=== PATIENT | male | born 1975 | race Caucasian/White ===

== ENCOUNTER 2017-09-11 18:04 | Emergency (ER) | payer SELFPAY ==
[2017-09-11 18:15] VITALS: BP 110/76
== END 2017-09-11 22:30 | disposition left against medical advice (07) ==
LOC: ED 18:04
DX: R06.02 Shortness of breath (principal); Z53.21 Procedure and treatment not carried out due to patient leaving prior to being seen by health care provider

== ENCOUNTER 2017-10-06 01:19 | Inpatient (IN) | payer OTHER ==
[2017-10-06] MEDS ORDERED: ASPIRIN PO ONE (02:46)
[2017-10-06 03:04] LABS: Basophils # (Auto) 0.1 K/mm3 (0.0-0.1); Basophils % (Auto) 0.8 % (0.0-1.8); Eosinophils # (Auto) 0.5 K/mm3 (0.0-0.4); Hematocrit 42.8 % (35.5-45.6); Hemoglobin 14.3 gm/dl (11.8-15.2); Lymphocytes # (Auto) 2.6 K/mm3 (1.2-5.4); Lymphocytes % (Auto) 32.4 % (13.4-35.0); Mean Corpuscular HGB Conc 33 % (32-34); Mean Corpuscular Hemoglobin 30 pg (28-32); Mean Corpuscular Volume 90 fl (84-94); Monocytes # (Auto) 1.1 K/mm3 (0.0-0.8); Monocytes % (Auto) 14.3 % (0.0-7.3); Platelet Count 234 K/mm3 (140-440); Red Blood Count 4.78 M/mm3 (3.65-5.03); Red Cell Distribution Width 13.8 % (13.2-15.2)
[2017-10-06 03:24] LABS: BUN/Creatinine Ratio 14; Blood Urea Nitrogen 11 mg/dL (9-20); Calcium 9.8 mg/dL (8.4-10.2); Hemolysis Index 11
[2017-10-06] MEDS ORDERED: ASPIRIN ONE ×2 (06:07→10:19)
[2017-10-06] MEDS ORDERED: ALUM-MAG HYDROX-SIMETH 200-200-20MG/5ML PO ONE (07:18)
[2017-10-06] MEDS ORDERED: LIDOCAINE VISCOUS 2% PO ONE (07:18)
--- NOTE | 2017-10-06 07:22 | XRay Report ---
FINAL REPORT EXAM: XR CHEST 1V AP HISTORY: cp TECHNIQUE: A portable upright view the chest was submitted. FINDINGS: Heart size and mediastinum appear normal. The lungs are clear. The lungs are not congested. Pleural fluid is not seen. The bones and soft tissues are well maintained. IMPRESSION: No active chest disease.
--- NOTE | 2017-10-06 08:07 | Cat Scan Report ---
FINAL REPORT EXAM: CT ANGIO CHEST HISTORY: chest pain, sob TECHNIQUE: A CT angiogram of the thorax was obtained following the intravenous injection of 100 cc of Omnipaque 350. Rotational, sagittal, and coronal MIP reconstructions were reviewed. FINDINGS: There is no evidence of pulmonary embolus or aortic dissection. The thoracic aorta is normal caliber. The heart size is normal. Pericardial fluid is not seen. There is no evidence of adenopathy. The lungs are clear. Pleural fluid is not seen. In the upper abdomen the adrenal glands appear normal. The skeletal structures appear well maintained. At the thoracic inlet the thyroid gland appears normal IMPRESSION: No evidence of pulmonary embolus or aortic dissection. No acute process in the chest.
[2017-10-06] MEDS ORDERED: ATIVAN PO ONE (08:22)
--- NOTE | 2017-10-06 08:27 | Emergency Department Report ---
HPI - General Chief Complaint: Chest Pain Time Seen by Provider: 10/06/17 06:45 - HPI HPI: 27 year-old -[place] male presents to ED with chest pain, shortness of breath, has been going on for the past week but worse today. Patient also states he has having palpitations. He describes his pain as pressure, substernal area, without radiation. He describes his pain as its worse is 10 out of 10 intermittently and other times 3/10. Patient denies any nausea, vomiting, diaphoresis. Patient denies any past medical history and has not taking any medication for his symptoms. ED Past Medical Hx - Past Medical History Previous Medical History?: No - Surgical History Past Surgical History?: No - Social History Smoking Status: Never Smoker Substance Use Type: None ED Review of Systems ROS: Stated complaint: LEFT ARM, CHEST TIGHTEN Other details as noted in HPI Comment: All other systems reviewed and negative Respiratory: shortness of breath. denies: cough, orthopnea Cardiovascular: chest pain Physical Exam - Physical Exam Vital Signs: Vital Signs 10/06/17 10/06/17 10/06/17 01:22 02:32 05:57 Temperature 97.8 F 97.8 F Pulse Rate 72 76 Respiratory 16 16 Rate Blood Pressure 100/68 100/68 O2 Sat by Pulse 99 100 99 Oximetry 10/06/17 10/06/17 10/06/17 05:58 05:59 06:00 Temperature Pulse Rate 55 L 55 L Respiratory 14 11 L Rate Blood Pressure 109/74 109/74 O2 Sat by Pulse 99 100 Oximetry 10/06/17 10/06/17 10/06/17 06:01 06:03 06:05 Temperature Pulse Rate 57 L 62 67 Respiratory 16 17 10 L Rate Blood Pressure 109/74 109/74 109/74 O2 Sat by Pulse 100 100 100 Oximetry 10/06/17 06:57 Temperature Pulse Rate Respiratory 20 Rate Blood Pressure O2 Sat by Pulse 98 Oximetry Physical Exam: Vitals reviewed Gen. alert and oriented 3 in no distress Head atraumatic normocephalic Eyes PERR LA EOMI Chest tachycardia but regular rhythm normal S1-S2 lungs clear bilaterally Abdomen soft nondistended Back no point tenderness paravertebral tenderness Neuro no focal deficit. Psych normal mood. ED Course Vital Signs 10/06/17 10/06/17 10/06/17 01:22 02:32 05:57 Temperature 97.8 F 97.8 F Pulse Rate 72 76 Respiratory 16 16 Rate Blood Pressure 100/68 100/68 O2 Sat by Pulse 99 100 99 Oximetry 10/06/17 10/06/17 10/06/17 05:58 05:59 06:00 Temperature Pulse Rate 55 L 55 L Respiratory 14 11 L Rate Blood Pressure 109/74 109/74 O2 Sat by Pulse 99 100 Oximetry 10/06/17 10/06/17 10/06/17 06:01 06:03 06:05 Temperature Pulse Rate 57 L 62 67 Respiratory 16 17 10 L Rate Blood Pressure 109/74 109/74 109/74 O2 Sat by Pulse 100 100 100 Oximetry 10/06/17 06:57 Temperature Pulse Rate Respiratory 20 Rate Blood Pressure O2 Sat by Pulse 98 Oximetry ED Medical Decision Making - Lab Data Result diagrams: 10/06/17 02:52 10/06/17 02:52 Critical care attestation.: If time is entered above; I have spent that time in minutes in the direct care of this critically ill patient, excluding procedure time. ED Disposition Clinical Impression: Chest pain Qualifiers: Chest pain type: other chest pain Qualified Code(s): R07.89 - Other chest pain Disposition: DC-09 OP ADMIT IP TO THIS HOSP Is pt being admited?: Yes Does the pt Need Aspirin: Yes Condition: Stable Instructions: Chest Pain (ED) Referrals: PRIMARY CARE, [Primary Care Provider] - 3-5 Days
--- NOTE | 2017-10-06 09:24 | Progress Note ---
History Interval history: Chest pain Epigastric pains Hospitalist Physical - Constitutional Vitals: Temp Pulse Resp BP Pulse Ox 97.8 F 67 20 109/74 98 10/06/17 02:32 10/06/17 06:05 10/06/17 06:57 10/06/17 06:05 10/06/17 06:57 Results - Labs CBC & Chem 7: 10/06/17 02:52 10/06/17 02:52 Labs: Laboratory Last Values WBC 8.0 K/mm3 (4.5-11.0) 10/06/17 02:52 RBC 4.78 M/mm3 (3.65-5.03) 10/06/17 02:52 Hgb 14.3 gm/dl (11.8-15.2) 10/06/17 02:52 Hct 42.8 % (35.5-45.6) 10/06/17 02:52 MCV 90 fl (84-94) 10/06/17 02:52 MCH 30 pg (28-32) 10/06/17 02:52 MCHC 33 % (32-34) 10/06/17 02:52 RDW 13.8 % (13.2-15.2) 10/06/17 02:52 Plt Count 234 K/mm3 (140-440) 10/06/17 02:52 Lymph % (Auto) 32.4 % (13.4-35.0) 10/06/17 02:52 [place] % (Auto) 14.3 % (0.0-7.3) H 10/06/17 02:52 Eos % (Auto) 6.0 % (0.0-4.3) H 10/06/17 02:52 Baso % (Auto) 0.8 % (0.0-1.8) 10/06/17 02:52 Lymph # 2.6 K/mm3 (1.2-5.4) 10/06/17 02:52 [place] # 1.1 K/mm3 (0.0-0.8) H 10/06/17 02:52 Eos # 0.5 K/mm3 (0.0-0.4) H 10/06/17 02:52 Baso # 0.1 K/mm3 (0.0-0.1) 10/06/17 02:52 Seg Neutrophils % 46.5 % (40.0-70.0) 10/06/17 02:52 Seg Neutrophils # 3.7 K/mm3 (1.8-7.7) 10/06/17 02:52 Sodium 139 mmol/L (137-145) 10/06/17 02:52 Potassium 3.9 mmol/L (3.6-5.0) 10/06/17 02:52 Chloride 97.5 mmol/L (98-107) L 10/06/17 02:52 Carbon Dioxide 29 mmol/L (22-30) 10/06/17 02:52 Anion Gap 16 mmol/L 10/06/17 02:52 BUN 11 mg/dL (9-20) 10/06/17 02:52 Creatinine 0.8 mg/dL (0.8-1.5) 10/06/17 02:52 Estimated GFR > 60 ml/min 10/06/17 02:52 BUN/Creatinine Ratio 14 % 10/06/17 02:52 Glucose 131 mg/dL (75-100) H 10/06/17 02:52 Calcium 9.8 mg/dL (8.4-10.2) 10/06/17 02:52 Troponin T < 0.010 ng/mL (0.00-0.029) 10/06/17 06:16 NT-Pro-B Natriuret Pep 30.72 pg/mL (0-450) 10/06/17 06:16
--- NOTE | 2017-10-06 09:43 | History and Physical Report ---
History of Present Illness Date of examination: 10/06/17 Date of admission: 10/06/17 08:50 Chief complaint: Chest pain Epigastric pain History of present illness: Patient is 42 yo presents with chest pain for 1 week and epigastric pain for 1 month. Chest pain is left sided, sharp, 7 of out 10 in severity, no radiation, not worse on exertion. Epigastric pain is 8/10, dull, radiates to back, gets better after food. Epigastric pain associated with nausea, sometimes vomiting. He had seen his PCP about epigastric pain ,and was referred to and saw a GI Physician at [facility] and has another appointment in 1 month. he however states epigastric pain has become worse and now chest pain also worse therefore came to ED for evaluation. Initial cardiac enzymes are negative. Will admit to rule out acute coronary syndrome. Past History Past Medical History: No medical history Past Surgical History: No surgical history Social history: single, full code. denies: smoking, alcohol abuse Family history: hypertension Medications and Allergies Allergies Allergy/AdvReac Type Severity Reaction Status Date / Time No Known Allergies Allergy Verified 10/06/17 06:19 Home Medications Medication Instructions Recorded Confirmed Last Taken Type No Known Home Medications [No 10/06/17 10/06/17 Unknown History Reported Home Medications] Review of Systems All systems: negative (No fever, no cough, no shortness of breath. All other systems reviewed and are negative.) Exam - Physical Exam Narrative exam: General:Not in acute distress, lying in bed,, HEENT:Normocephalic, atraumatic Neck:supple,no JVD Lungs: Clear to auscultation bilaterally, no rales or wheeze Heart:S1 and S2 regular, no murmurs, rubs or gallop Abd: soft, tender epigastric region, no rebound tenderness, non distended, normal bowel sounds Ext:no edema, no clubbing or cyanosis Neuro:Awake,alert,oriented x 3, moves all extremities, Psych:normal mood - Constitutional Vitals: Temp Pulse Resp BP Pulse Ox 97.8 F 67 20 109/74 98 10/06/17 02:32 10/06/17 06:05 10/06/17 06:57 10/06/17 06:05 10/06/17 06:57 Results - Labs CBC & Chem 7: 10/06/17 10:30 10/06/17 10:30 Labs: Abnormal lab results 10/06/17 10/06/17 Range/Units 02:52 02:52 [place] % (Auto) 14.3 H (0.0-7.3) % Eos % (Auto) 6.0 H (0.0-4.3) % [place] # 1.1 H (0.0-0.8) K/mm3 Eos # 0.5 H (0.0-0.4) K/mm3 Chloride 97.5 L (98-107) mmol/L Glucose 131 H (75-100) mg/dL Assessment and Plan Chest pain. Admit to Telemetry to rule out acute coronary syndrome. Get serial Troponins Stress test tomorrow Epigastric pain., nausea patient had seen a GI Physician before, cannot remember name and he actually has appt for next month. He however states he is in severe pain and needs urgent evaluation. Consult GI. Protonix daily Sinus tachy due to pain/anxiety DVT prophylaxis:Heparin Full code status.
[2017-10-06] MEDS ORDERED: MORPHINE IV PRN (09:46)
[2017-10-06] MEDS ORDERED: ZOFRAN IV PRN (09:46)
[2017-10-06] MEDS ORDERED: TYLENOL PO PRN (09:46)
[2017-10-06] MEDS ORDERED: SODIUM CHLORIDE FLUSH SYRINGE 10 ML IV PRN ×2 (09:46→09:47)
[2017-10-06] MEDS ORDERED: NITROSTAT SL PRN (09:47)
[2017-10-06] MEDS: SODIUM CHLORIDE FLUSH SYRINGE 10 ML IV SCH ×2 (10:42→21:21)
[2017-10-06 10:45] LABS: Hematocrit 41.4 % (35.5-45.6); Hemoglobin 13.5 gm/dl (11.8-15.2); Mean Corpuscular HGB Conc 33 % (32-34); Mean Corpuscular Hemoglobin 29 pg (28-32); Mean Corpuscular Volume 89 fl (84-94); Platelet Count 239 K/mm3 (140-440); Red Blood Count 4.65 M/mm3 (3.65-5.03); Red Cell Distribution Width 13.8 % (13.2-15.2)
[2017-10-06 11:30] LABS: Band Neutrophils # (Manual) 0.1 K/mm3; Basophils % (Manual) 0 % (0.0-1.8); Total Cells Counted 100
[2017-10-06 11:31] LABS: Platelet Estimate Consistent w Auto
[2017-10-06 11:36] LABS: BUN/Creatinine Ratio 13; Blood Urea Nitrogen 9 mg/dL (9-20); Calcium 9.4 mg/dL (8.4-10.2); Hemolysis Index 11
[2017-10-06] MEDS: PROTONIX IV SCH ×2 (14:35→21:21)
--- NOTE | 2017-10-07 10:10 | Event Note ---
Date: 10/07/17 GI has been consulted for epigastric pain. Patient is off of the floor for a stress test. Full consult to follow when pt is available.
[2017-10-07] MEDS: ECOTRIN PO SCH (11:12)
[2017-10-07] MEDS: SODIUM CHLORIDE FLUSH SYRINGE 10 ML IV SCH ×2 (11:12→22:53)
[2017-10-07] MEDS: PROTONIX IV SCH ×2 (11:12→22:51)
--- NOTE | 2017-10-07 11:44 | Gastroenterology Consultation ---
<ROSA ALVAREZ - Last Filed: 10/07/17 11:44> History of Present Illness - Reason for Consult Consult date: 10/07/17 epigastric pain Requesting physician: MARCELL SAMUEL - History of Present Illness Patient is a 47 y/o male with no significant medical history who presented to ED with c/o CP and palpitations. Cardiac enzymes negative. Stress test results pending. GI has been consulted for epigastric pain. This morning pt was resting in bed w/o acute distress. He reports multiple symptoms x approximately 1 month to include intermittent CP, heartburn, regurgitation at night, burping, occasional nausea mainly in the mornings, and intermittent epigastric burning x 1 month. Symptoms exacerbated by eating spicy foods. Tried OTC Tums, rolaids, and Zantac w/o improvement. Tolerating diet. Has had some recent wt loss from changing his diet due to symptoms. Denies fever, SOB, vomiting, dysphagia, odynophagia, signs of bleeding, or LGI symptoms such as diarrhea or constipation. No routine NSAID use but reports taking Aleve last week for CP. No hx of PUD or previous EGD. Past History Past Medical History: No medical history Past Surgical History: No surgical history Social history: single, full code. denies: smoking, alcohol abuse Family history: hypertension Medications and Allergies Allergies Allergy/AdvReac Type Severity Reaction Status Date / Time No Known Allergies Allergy Verified 10/06/17 06:19 Home Medications Medication Instructions Recorded Confirmed Last Taken Type No Known Home Medications [No 10/06/17 10/06/17 Unknown History Reported Home Medications] Active Meds: Active Medications Acetaminophen (Tylenol) 650 mg PO Q4H PRN PRN Reason: Pain MILD(1-3)/Fever >100.5/BRIHGT Aspirin (Ecotrin) 325 mg PO QDAY [facility] Last Admin: 10/07/17 11:12 Dose: 325 mg Morphine Sulfate (Morphine) 2 mg IV Q4H PRN PRN Reason: Pain, Moderate (4-6) Nitroglycerin (Nitrostat) 0.4 mg SL Q5M PRN PRN Reason: Chest Pain Ondansetron HCl (Zofran) 4 mg IV Q8H PRN PRN Reason: Nausea And Vomiting Pantoprazole Sodium (Protonix) 40 mg IV BID [facility] Last Admin: 10/07/17 11:12 Dose: 40 mg Sodium Chloride (Sodium Chloride Flush Syringe 10 Ml) 10 ml IV BID [facility] Last Admin: 10/07/17 11:12 Dose: 10 ml Sodium Chloride (Sodium Chloride Flush Syringe 10 Ml) 10 ml IV PRN PRN PRN Reason: LINE FLUSH Review of Systems - Review of Systems All systems: negative Cardiovascular: chest pain Gastrointestinal: abdominal pain, nausea, heartburn, belching, other ( regurgitation) Exam - Constitutional Vital Signs: Temp Pulse Resp BP Pulse Ox 97.7 F 73 20 101/67 100 10/07/17 07:40 10/07/17 07:40 10/07/17 07:40 10/07/17 07:40 10/07/17 07:40 General appearance: no acute distress - EENT Eyes: PERRL, EOM intact ENT: hearing intact - Respiratory Respiratory: bilateral: CTA - Cardiovascular Rhythm: regular Heart Sounds: Present: S1 & S2 - Gastrointestinal General gastrointestinal: Present: soft, non-tender, non-distended, normal bowel sounds - Integumentary Integumentary: Present: warm, dry - Neurologic Neurological: alert and oriented x3 - Labs CBC & Chem 7: 10/06/17 10:30 10/06/17 10:30 Assessment and Plan 1.CP 2.epigastric pain 3.regurgitation at HS 4.heartburn 6.burping 7.nausea w/o vomiting (mainly in the mornings) -cardiac enzymes negative -stress test results pending -etiology unclear- possibly related to GERD -recommend an EGD once cleared by cardiology -NPO after MN -continue PPI and supportive care -further recommendations to follow <JUDI ISABEL - Last Filed: 10/07/17 17:03> Medications and Allergies Active Meds: Active Medications Acetaminophen (Tylenol) 650 mg PO Q4H PRN PRN Reason: Pain MILD(1-3)/Fever >100.5/BRIGHT Aspirin (Ecotrin) 325 mg PO QDAY [facility] Last Admin: 10/07/17 11:12 Dose: 325 mg Heparin Sodium (Porcine) (Heparin) 5,000 unit SUB-Q Q8HR [facility] Morphine Sulfate (Morphine) 2 mg IV Q4H PRN PRN Reason: Pain, Moderate (4-6) Nitroglycerin (Nitrostat) 0.4 mg SL Q5M PRN PRN Reason: Chest Pain Ondansetron HCl (Zofran) 4 mg IV Q8H PRN PRN Reason: Nausea And Vomiting Pantoprazole Sodium (Protonix) 40 mg IV BID [facility] Last Admin: 10/07/17 11:12 Dose: 40 mg Sodium Chloride (Sodium Chloride Flush Syringe 10 Ml) 10 ml IV BID [facility] Last Admin: 10/07/17 11:12 Dose: 10 ml Sodium Chloride (Sodium Chloride Flush Syringe 10 Ml) 10 ml IV PRN PRN PRN Reason: LINE FLUSH Exam - Constitutional Vital Signs: Temp Pulse Resp BP Pulse Ox 98.5 F 73 20 100/53 100 10/07/17 16:09 10/07/17 16:09 10/07/17 16:09 10/07/17 16:09 10/07/17 16:09 - Labs CBC & Chem 7: 10/06/17 10:30 10/06/17 10:30 Assessment and Plan Patient seen and examined. Agree with note by Rosa Alvarez. If cardiac work-up /stress test negative, will plan for EGD.
--- NOTE | 2017-10-07 12:43 | Progress Note ---
Assessment and Plan Assessment and plan: Chest pain. Aspirin daily. Stress test done today. report pending Epigastric pain., nausea patient had seen a GI Physician before, cannot remember name and he actually has appt for next month. he however states he is in severe pain and needs urgent evaluation. Consulted GI. he was evaluated and EGD planned for tomorrow,. Continue Protonix Sinus tachy due to pain/anxiety,resolved DVT prophylaxis with Heparin. Full code status. History Interval history: Less chest pain, Still has epigastric pain Hospitalist Physical - Physical exam Narrative exam: General:Not in acute distress, lying in bed,, HEENT:Normocephalic, atraumatic Neck:supple,no JVD Lungs: Clear to auscultation bilaterally, no rales or wheeze Heart:S1 and S2 regular, no murmurs, rubs or gallop Abd: soft, epigastric tenderness, no rebound tenderness,non distended, normal bowel sounds Ext:no edema, no clubbing or cyanosis Neuro:Awake,alert,oriented x 3, moves all extremities, Psych:normal mood - Constitutional Vitals: Temp Pulse Resp BP Pulse Ox 97.7 F 73 20 101/67 100 10/07/17 07:40 10/07/17 07:40 10/07/17 10:00 10/07/17 07:40 10/07/17 07:40 Results - Labs CBC & Chem 7: 10/06/17 10:30 10/06/17 10:30 Labs: Laboratory Last Values WBC 5.5 K/mm3 (4.5-11.0) 10/06/17 10:30 RBC 4.65 M/mm3 (3.65-5.03) 10/06/17 10:30 Hgb 13.5 gm/dl (11.8-15.2) 10/06/17 10:30 Hct 41.4 % (35.5-45.6) 10/06/17 10:30 MCV 89 fl (84-94) 10/06/17 10:30 MCH 29 pg (28-32) 10/06/17 10:30 MCHC 33 % (32-34) 10/06/17 10:30 RDW 13.8 % (13.2-15.2) 10/06/17 10:30 Plt Count 239 K/mm3 (140-440) 10/06/17 10:30 Lymph % (Auto) 32.4 % (13.4-35.0) 10/06/17 02:52 [place] % (Auto) Change Management Specialist 10/06/17 10:30 Eos % (Auto) 6.0 % (0.0-4.3) H 10/06/17 02:52 Baso % (Auto) 0.8 % (0.0-1.8) 10/06/17 02:52 Lymph # 2.6 K/mm3 (1.2-5.4) 10/06/17 02:52 [place] # 1.1 K/mm3 (0.0-0.8) H 10/06/17 02:52 Eos # 0.5 K/mm3 (0.0-0.4) H 10/06/17 02:52 Baso # 0.1 K/mm3 (0.0-0.1) 10/06/17 02:52 Add Manual Diff Complete 10/06/17 10:30 Total Counted 100 10/06/17 10:30 Seg Neutrophils % 46.5 % (40.0-70.0) 10/06/17 02:52 Seg Neuts % (Manual) 59.0 % (40.0-70.0) 10/06/17 10:30 Band Neutrophils % 1.0 % 10/06/17 10:30 Lymphocytes % (Manual) 15.0 % (13.4-35.0) 10/06/17 10:30 Reactive Lymphs % (Man) 1.0 % 10/06/17 10:30 Monocytes % (Manual) 21.0 % (0.0-7.3) H 10/06/17 10:30 Eosinophils % (Manual) 3.0 % (0.0-4.3) 10/06/17 10:30 Basophils % (Manual) 0 % (0.0-1.8) 10/06/17 10:30 Metamyelocytes % 0 % 10/06/17 10:30 Myelocytes % 0 % 10/06/17 10:30 Promyelocytes % 0 % 10/06/17 10:30 Blast Cells % 0 % 10/06/17 10:30 Nucleated RBC % Not Reportable 10/06/17 10:30 Seg Neutrophils # 3.7 K/mm3 (1.8-7.7) 10/06/17 02:52 Seg Neutrophils # Man 3.2 K/mm3 (1.8-7.7) 10/06/17 10:30 Band Neutrophils # 0.1 K/mm3 10/06/17 10:30 Lymphocytes # (Manual) 0.8 K/mm3 (1.2-5.4) L 10/06/17 10:30 Abs React Lymphs (Man) 0.1 K/mm3 10/06/17 10:30 Monocytes # (Manual) 1.2 K/mm3 (0.0-0.8) H 10/06/17 10:30 Eosinophils # (Manual) 0.2 K/mm3 (0.0-0.4) 10/06/17 10:30 Basophils # (Manual) 0.0 K/mm3 (0.0-0.1) 10/06/17 10:30 Metamyelocytes # 0.0 K/mm3 10/06/17 10:30 Myelocytes # 0.0 K/mm3 10/06/17 10:30 Promyelocytes # 0.0 K/mm3 10/06/17 10:30 Blast Cells # 0.0 K/mm3 10/06/17 10:30 WBC Morphology Not Reportable 10/06/17 10:30 Hypersegmented Neuts Not Reportable 10/06/17 10:30 Hyposegmented Neuts Not Reportable 10/06/17 10:30 Hypogranular Neuts Not Reportable 10/06/17 10:30 Smudge Cells Not Reportable 10/06/17 10:30 Toxic Granulation Not Reportable 10/06/17 10:30 Toxic Vacuolation Not Reportable 10/06/17 10:30 Dohle Bodies Not Reportable 10/06/17 10:30 Pelger-Huet Anomaly Not Reportable 10/06/17 10:30 Blaire Rods Not Reportable 10/06/17 10:30 Platelet Estimate Consistent w auto 10/06/17 10:30 Clumped Platelets Not Reportable 10/06/17 10:30 Plt Clumps, EDTA Not Reportable 10/06/17 10:30 Large Platelets Not Reportable 10/06/17 10:30 Giant Platelets Not Reportable 10/06/17 10:30 Platelet Satelliting Not Reportable 10/06/17 10:30 Plt Morphology Comment Not Reportable 10/06/17 10:30 RBC Morphology Not Reportable 10/06/17 10:30 Dimorphic RBCs Not Reportable 10/06/17 10:30 Polychromasia Not Reportable 10/06/17 10:30 Hypochromasia Not Reportable 10/06/17 10:30 Poikilocytosis Not Reportable 10/06/17 10:30 Anisocytosis Not Reportable 10/06/17 10:30 Microcytosis Not Reportable 10/06/17 10:30 Macrocytosis Not Reportable 10/06/17 10:30 Spherocytes Not Reportable 10/06/17 10:30 Pappenheimer Bodies Not Reportable 10/06/17 10:30 Sickle Cells Not Reportable 10/06/17 10:30 Target Cells Not Reportable 10/06/17 10:30 Tear Drop Cells Not Reportable 10/06/17 10:30 Ovalocytes Not Reportable 10/06/17 10:30 Helmet Cells Not Reportable 10/06/17 10:30 Dawn-Antonito Bodies Not Reportable 10/06/17 10:30 [place] Rings Not Reportable 10/06/17 10:30 Kennard Cells Not Reportable 10/06/17 10:30 Bite Cells Not Reportable 10/06/17 10:30 Crenated Cell Not Reportable 10/06/17 10:30 Elliptocytes Not Reportable 10/06/17 10:30 Acanthocytes (Spur) Not Reportable 10/06/17 10:30 Rouleaux Not Reportable 10/06/17 10:30 Hemoglobin C Crystals Not Reportable 10/06/17 10:30 Schistocytes Not Reportable 10/06/17 10:30 Malaria parasites Not Reportable 10/06/17 10:30 Cb Bodies Not Reportable 10/06/17 10:30 Hem Pathologist Commnt No 10/06/17 10:30 Sodium 139 mmol/L (137-145) 10/06/17 10:30 Potassium 4.3 mmol/L (3.6-5.0) 10/06/17 10:30 Chloride 100.5 mmol/L (98-107) 10/06/17 10:30 Carbon Dioxide 26 mmol/L (22-30) 10/06/17 10:30 Anion Gap 17 mmol/L 10/06/17 10:30 BUN 9 mg/dL (9-20) 10/06/17 10:30 Creatinine 0.7 mg/dL (0.8-1.5) L 10/06/17 10:30 Estimated GFR > 60 ml/min 10/06/17 10:30 BUN/Creatinine Ratio 13 % 10/06/17 10:30 Glucose 96 mg/dL (75-100) 10/06/17 10:30 Calcium 9.4 mg/dL (8.4-10.2) 10/06/17 10:30 Troponin T < 0.010 ng/mL (0.00-0.029) 10/06/17 08:58 NT-Pro-B Natriuret Pep 30.72 pg/mL (0-450) 10/06/17 06:16
[2017-10-07] MEDS: HEPARIN SUB-Q SCH ×2 (18:09→22:51)
[2017-10-07] MEDS ORDERED: AMBIEN PO ONE (22:35)
[2017-10-08] MEDS: HEPARIN SUB-Q SCH ×2 (05:38→17:05)
[2017-10-08] MEDS: ECOTRIN PO SCH (09:58)
[2017-10-08] MEDS: SODIUM CHLORIDE FLUSH SYRINGE 10 ML IV SCH (09:58)
[2017-10-08] MEDS: PROTONIX IV SCH (09:58)
[2017-10-08] MEDS ORDERED: NACL 0.9% 1000 ML 1,000 ML IV SCH (14:00)
[2017-10-08] MEDS ORDERED: DIPRIVAN 10 MG/ML IV ONE (15:11)
[2017-10-08] MEDS ORDERED: WATER FOR IRRIG STERILE IR ONE (15:18)
--- NOTE | 2017-10-08 15:20 | Anesthesia Consultation ---
Anesthesia Consult and Med Hx Date of service: 10/08/17 - Airway Anesthetic Teeth Evaluation: Poor, Crowns - Pulmonary Exam CTA: Yes - Cardiac Exam Cardiac Exam: RRR - Pre-Operative Health Status ASA Pre-Surgery Classification: ASA2 Proposed Anesthetic Plan: General - Pulmonary Hx Smoking: No - Other Systems Hx Alcohol Use: Yes (OCCASIONALLY , 1-2 BIWEEKLY) Hx Substance Use: Yes (Marijuana, rarely)
--- NOTE | 2017-10-08 15:21 | Anesthesia Day of Surgery ---
Anesthesia Day of Surgery - Day of Surgery Patient Examined: Yes Patient H&P Reviewed: Yes Patient is NPO: Yes
--- NOTE | 2017-10-08 15:35 | Post Operative Note ---
Pre-op diagnosis: dyspepsia Post-op diagnosis: same (normal upper endoscopy) Findings: 1. normal EGD Procedure: EGD with biopsies Anesthesia: MAC Surgeon: JUDI ISABEL Estimated blood loss: minimal Pathology: list (Jar A - gastric biopsies) Specimen disposition: to lab Condition: stable Disposition: floor
--- NOTE | 2017-10-08 15:37 | Operative Report ---
Operative Report Operative Report: Esophagogastroduodenoscopy Procedure Note with Biopsies Date of procedure: 10/08/2017 Endoscopist: Jero Bethea Pre-op diagnosis: Dyspepsia Post-op diagnosis: Unremarkable upper endoscopy Anesthesia: MAC Complications: No immediate complications Estimated blood loss: minimal Procedure: After consent was obtained, the patient was placed in the left lateral decubitus position. The fujinon endoscope was inserted into the patient 's mouth under direct vision, and advanced to the 2nd portion of duodenum without difficulty. The patient tolerated the procedure well. The views of the mucosa were good. Patient's vital signs were monitored continuously throughout the procedure. Findings: The esophagus appeared normal. The stomach appeared normal. Biopsies were obtained to rule out H pylori. The duodenum appeared normal. Impression: 1. Unremarkable upper endoscopy. Biopsies were obtained from the stomach to rule out H pylori. Recommendations: -restart diet and advance as tolerated -follow-up pathology -okay to be discharged from Gi stand point if tolerating po Will sign off. Follow-up in Gi clinic in 1 month. Please call as needed or with questions.
--- NOTE | 2017-10-08 15:39 | Discharge Summary ---
Providers - Providers Date of Admission: 10/06/17 08:50 Date of discharge: 10/08/17 Attending physician: EDDIE SANTOS 10/06/17 Consult to Cardiac Rehabilitation [CONS] Routine Reason For Exam: Phase I 10/07/17 07:06 Consult to Physician [CONS] Routine Comment: Consulting Provider: KANE CONLEY Physician Instructions: Reason For Exam: Epigastric pain Primary care physician: COURSEWARE DEVELOPER Hospitalization Condition: Stable Procedures: EGD: Impression: 1. Unremarkable upper endoscopy. Biopsies were obtained from the stomach to rule out H pylori. Hospital course: Patient is a 47 y/o male with no significant medical history who presented to ED with c/o CP and palpitations. Cardiac enzymes were negative. Myocardial Stress test showed no ischemia. GI has been consulted for persistent complain of epigastric pain. He was further evaluated by EGD and findings were unremarkable. Patient was discharged home with Protonix. He'll further follow- up with GI in 2-4 weeks. Discharge diagnosis and management Chest pain, likely due to GERD versus musculoskeletal Continue Aspirin daily. Placed on PPI Stress test done and showed no ischemia Epigastric pain., nausea, likely from GERD Consulted GI. he was evaluated with EGD which is normal Continue Protonix Sinus tachycardia due to pain/anxiety, resolved DVT prophylaxis with Heparin. Radiological data: Chest CTA - no PE or artery dissection Chest x-ray- no infiltrates Myocardial stress test- no ischemia Physical exam: GENERAL: well-developed and well-nourished -[place] male lying on bed appeared to be in no discomfort. HEENT: Normocephalic. Atraumatic. No conjunctival congestion or icterus. Patient has moist mucous membranes. NECK: Supple. Trachea midline. CHEST/LUNGS: Clear to auscultated bilaterally, breathing nonlabored. No wheezes crackles or rhonchi. HEART/CARDIOVASCULAR: Regular in rate and rhythm. S1 and S2 positive. ABDOMEN: Abdomen is soft, nontender. Patient has normal bowel sounds. SKIN: There is no rash. Warm and dry. NEURO: No focal motor deficit. Follows command. MUSCULOSKELETAL: No joint effusion or tenderness. EXTRIMITY: No edema, no cyanosis or clubbing. PSYCH: Cooperative. Disposition: - TO HOME OR SELFCARE Time spent for discharge: 32 minutes Core Measure Documentation - Palliative Care Palliative Care/ Comfort Measures: Not Applicable - Core Measures Any of the following diagnoses?: none Exam - Constitutional Vitals: Temp Pulse Resp BP Pulse Ox 98.8 F 56 L 18 119/76 100 10/08/17 13:23 10/08/17 13:23 10/08/17 13:23 10/08/17 13:23 10/08/17 13:23 Plan Activity: no restrictions Weight Bearing Status: Weight Bear as Tolerated Diet: low fat, low salt Additional Instructions: Follow-up with GI in 2-4 weeks Follow up with: [facility] [Provider Group] - 7 Days PRIMARY CARE, [Primary Care Provider] - 3-5 Days Forms: Work/School Release Form Prescriptions: Aspirin EC [Aspirin Enteric Coated TAB] 81 mg PO QDAY #30 tablet. Pantoprazole [Protonix] 40 mg PO QDAY #30 tablet
[2017-10-08 16:08] VITALS: BP 107/47
--- NOTE | 2017-10-09 08:06 | Treadmill Report ---
THALLIUM STRESS TEST LEFT VENTRICLE: Left ventricular chamber size is within normal. Perfusion study demonstrates homogeneous uptake of the tracer in all segments, no significant perfusion defects identified. Gated analysis demonstrates normal left ventricular systolic function, ejection fraction 66%. CONCLUSION: Normal myocardial perfusion study. JOB# [id number] CA/NTS
== END 2017-10-08 17:18 | disposition home or self-care (01) | DRG 392 ==
LOC: ED 01:19 → 4A 08:50 → OBSVTOIN 10-08 15:11
PROVIDERS: ADMIT Internal Medicine; ATTEND Internal Medicine
PROC: 0DB68ZX Excision of Stomach, Via Natural or Artificial Opening Endoscopic, Diagnostic (ICD-10-PCS; principal; 2017-10-08)
DX: K21.9 Gastro-esophageal reflux disease without esophagitis (principal); Z82.49 Family history of ischemic heart disease and other diseases of the circulatory system; R00.0 Tachycardia, unspecified
CPT/HCPCS: 36415; 71045; 71275; 78452; 80048; 83880; 84484; 85007; 85025; 88305; 88342; 93005; 93010; 93017; 96374; 99285; A9502; C9113; G0378; J1644; J2704; J7030; Q9967

== ENCOUNTER 2017-10-28 19:04 | Emergency (ER) | payer OTHER ==
[2017-10-29 01:04] VITALS: BP 113/78
--- NOTE | 2017-10-29 08:00 | Emergency Department Report ---
ED Abdominal Pain HPI - General Chief Complaint: Abdominal Pain Stated Complaint: STOMACH PAIN Time Seen by Provider: 10/29/17 07:47 Source: patient Mode of arrival: Ambulatory Limitations: No Limitations - History of Present Illness Initial Comments: Patient is a 42-year-old black male who presented with epigastric pain that he states periodically does present to his chest. Patient was here roughly 2 months ago and admitted for the symptoms and saw GI. Symptoms were thought to be secondary to GERD since he had an essentially normal upper GI endoscopy. Patient also has stress test performed that was negative for any ischemia. Patient states he's been on Protonix but he states he feels though the pain is getting worse and is not had any relief. Patient states he does have nauseated with occasional vomiting but no diarrhea. Patient denies any fevers cough or chest pain. Severity scale (0 -10): 6 - Related Data Previous Rx's Medication Instructions Recorded Last Taken Type Aspirin EC [Aspirin Enteric Coated 81 mg PO QDAY #30 tablet. 10/08/17 Unknown Rx TAB] Dicyclomine [Bentyl] 20 mg PO QID #20 tablet 10/29/17 Unknown Rx Ondansetron [Zofran Odt] 4 mg PO Q8HR PRN #10 tab.rapdis 10/29/17 Unknown Rx Sucralfate [Carafate] 1 gm PO Q6HR #120 tablet 10/29/17 Unknown Rx Allergies Allergy/AdvReac Type Severity Reaction Status Date / Time No Known Allergies Allergy Verified 10/06/17 06:19 ED Review of Systems ROS: Stated complaint: STOMACH PAIN Other details as noted in HPI Comment: All other systems reviewed and negative ED Past Medical Hx - Past Medical History Previous Medical History?: No Hx GERD: Yes - Surgical History Hx Appendectomy: Yes - Social History Smoking Status: Current Some Day Smoker Substance Use Type: None - Medications Home Medications: Home Medications Medication Instructions Recorded Confirmed Last Taken Type Aspirin EC [Aspirin Enteric Coated 81 mg PO QDAY #30 tablet. 10/08/17 Unknown Rx TAB] Dicyclomine [Bentyl] 20 mg PO QID #20 tablet 10/29/17 Unknown Rx Ondansetron [Zofran Odt] 4 mg PO Q8HR PRN #10 tab.rapdis 10/29/17 Unknown Rx Sucralfate [Carafate] 1 gm PO Q6HR #120 tablet 10/29/17 Unknown Rx ED Physical Exam - General Limitations: No Limitations General appearance: alert, in no apparent distress - Head Head exam: Present: atraumatic, normocephalic - Eye Eye exam: Present: normal appearance - ENT ENT exam: Present: mucous membranes moist - Neck Neck exam: Present: normal inspection - Respiratory Respiratory exam: Present: normal lung sounds bilaterally. Absent: respiratory distress, wheezes, rales, rhonchi - Cardiovascular Cardiovascular Exam: Present: regular rate, normal rhythm. Absent: systolic murmur, diastolic murmur, rubs, gallop - GI/Abdominal GI/Abdominal exam: Present: soft, normal bowel sounds. Absent: distended, tenderness, guarding, rebound - Rectal Rectal exam: Present: deferred - Extremities Exam Extremities exam: Present: normal inspection - Back Exam Back exam: Present: normal inspection - Neurological Exam Neurological exam: Present: alert, oriented X3 - Psychiatric Psychiatric exam: Present: normal affect, normal mood - Skin Skin exam: Present: warm, dry, intact, normal color. Absent: rash ED Course Vital Signs 10/28/17 10/28/17 10/29/17 19:30 20:00 01:03 Temperature 98.6 F 98.6 F 98.0 F Pulse Rate 80 86 66 Respiratory 18 16 18 Rate Blood Pressure 120/73 120/73 113/78 O2 Sat by Pulse 98 98 99 Oximetry ED Medical Decision Making - Medical Decision Making Patient's past labs were reviewed and the patient will be treated for his symptoms. Patient would have a regimen change her from Protonix to Carafate and Bentyl. Critical care attestation.: If time is entered above; I have spent that time in minutes in the direct care of this critically ill patient, excluding procedure time. ED Disposition Clinical Impression: GERD (gastroesophageal reflux disease) Qualifiers: Esophagitis presence: esophagitis presence not specified Qualified Code(s): K21.9 - Gastro-esophageal reflux disease without esophagitis Disposition: TO HOME OR SELFCARE Is pt being admited?: No Does the pt Need Aspirin: No Condition: Stable Instructions: Gastroesophageal Reflux Disease (ED) Prescriptions: Dicyclomine [Bentyl] 20 mg PO QID #20 tablet Ondansetron [Zofran Odt] 4 mg PO Q8HR PRN #10 tab.rapdis PRN Reason: Nausea Sucralfate [Carafate] 1 gm PO Q6HR #120 tablet Referrals: SABIHA BUCHANAN MD [Staff Physician] - 3-5 Days
== END 2017-10-29 08:06 | disposition home or self-care (01) ==
LOC: ED 19:04
DX: K21.9 Gastro-esophageal reflux disease without esophagitis (principal); F17.200 Nicotine dependence, unspecified, uncomplicated
CPT/HCPCS: 99281

== ENCOUNTER 2017-11-07 21:34 | Emergency (ER) | payer OTHER ==
[2017-11-07 23:41] LABS: Basophils # (Auto) 0.1 K/mm3 (0.0-0.1); Basophils % (Auto) 0.8 % (0.0-1.8); Eosinophils # (Auto) 0.2 K/mm3 (0.0-0.4); Hematocrit 39.7 % (35.5-45.6); Hemoglobin 12.9 gm/dl (11.8-15.2); Lymphocytes # (Auto) 3.1 K/mm3 (1.2-5.4); Lymphocytes % (Auto) 38.1 % (13.4-35.0); Mean Corpuscular HGB Conc 32 % (32-34); Mean Corpuscular Hemoglobin 29 pg (28-32); Mean Corpuscular Volume 89 fl (84-94); Monocytes # (Auto) 0.9 K/mm3 (0.0-0.8); Monocytes % (Auto) 10.6 % (0.0-7.3); Platelet Count 227 K/mm3 (140-440); Red Blood Count 4.47 M/mm3 (3.65-5.03); Red Cell Distribution Width 13.3 % (13.2-15.2)
[2017-11-07 23:53] LABS: BUN/Creatinine Ratio 16; Blood Urea Nitrogen 14 mg/dL (9-20); Calcium 9.3 mg/dL (8.4-10.2); Hemolysis Index 4
[2017-11-08 00:14] LABS: Free T4 (Free Thyroxine) 1.13 ng/dL (0.76-1.46)
--- NOTE | 2017-11-08 00:16 | Emergency Department Report ---
HPI - General Chief Complaint: Arrhythmia/Palpitations Time Seen by Provider: 11/08/17 00:00 - HPI HPI: 42-year-old male presents to the emergency department after he had an episode of heart racing and/or palpitations that woke him from sleep this evening. He questions whether or not it could be secondary to all of these acid reflux medications he has been taking. He is been on Zantac 150 milligrams twice daily, he took some milk of magnesia yesterday, and 4 days ago he started Protonix. He says that the palpitations lasted for about 4 or 5 minutes and while he was walking around he felt kind of weak but it has since resolved and has not returned. He denies any chest pain, shortness of breath, nausea, vomiting or fever. He did not take anything else for his symptoms prior to presentation. He denies any tobacco or illicit drug use or abuse. No recent travel or sick contacts at home. ED Past Medical Hx - Past Medical History Previous Medical History?: Yes Hx GERD: Yes - Surgical History Past Surgical History?: Yes Hx Appendectomy: Yes - Social History Smoking Status: Never Smoker Substance Use Type: None - Medications Home Medications: Home Medications Medication Instructions Recorded Confirmed Last Taken Type Aspirin EC [Aspirin Enteric Coated 81 mg PO QDAY #30 tablet. 10/08/17 Unknown Rx TAB] Dicyclomine [Bentyl] 20 mg PO QID #20 tablet 10/29/17 Unknown Rx Ondansetron [Zofran Odt] 4 mg PO Q8HR PRN #10 tab.rapdis 10/29/17 Unknown Rx Sucralfate [Carafate] 1 gm PO Q6HR #120 tablet 10/29/17 Unknown Rx ED Review of Systems ROS: Stated complaint: HEART RACING Other details as noted in HPI Comment: All other systems reviewed and negative Constitutional: denies: chills, fever Eyes: denies: eye pain, eye discharge, vision change ENT: denies: ear pain, throat pain Respiratory: denies: cough, shortness of breath, wheezing Cardiovascular: palpitations. denies: chest pain Gastrointestinal: denies: abdominal pain, nausea, diarrhea Genitourinary: denies: urgency, dysuria Musculoskeletal: denies: back pain, joint swelling, arthralgia Skin: denies: rash, lesions Neurological: denies: headache, weakness, paresthesias Physical Exam - Physical Exam Vital Signs: Vital Signs 11/07/17 22:19 Temperature 98.7 F Pulse Rate 68 Respiratory 12 Rate Blood Pressure 114/66 O2 Sat by Pulse 96 Oximetry Physical Exam: GENERAL: The patient is well-developed well-nourished. HENT: Normocephalic. Atraumatic. Patient has moist mucous membranes. EYES: Extraocular motions are intact. Pupils equal reactive to light bilaterally. NECK: Supple. Trachea is midline. CHEST/LUNGS: Clear to auscultation. There is no respiratory distress noted. HEART/CARDIOVASCULAR: Regular. There is no tachycardia. There is no murmur. ABDOMEN: Abdomen is soft, nontender. Patient has normal bowel sounds. There is no abdominal distention. SKIN: Skin is warm and dry. NEURO: The patient is awake, alert, and oriented. The patient is cooperative. The patient has no focal neurologic deficits. The patient has normal speech and gait. MUSCULOSKELETAL: There is no tenderness or deformity. There is no limitation range of motion. There is no evidence of acute injury. ED Course Vital Signs 11/07/17 22:19 Temperature 98.7 F Pulse Rate 68 Respiratory 12 Rate Blood Pressure 114/66 O2 Sat by Pulse 96 Oximetry ED Medical Decision Making - Lab Data Result diagrams: 11/07/17 23:06 11/07/17 23:06 - EKG Data -: EKG Interpreted by Me EKG shows normal: sinus rhythm, axis, intervals, QRS complexes (LVH), ST-T waves Rate: bradycardia (57 bpm) - EKG Data When compared to previous EKG there are: no significant change Interpretation: unchanged when compared t (10/07/17) - Radiology Data Radiology results: image reviewed interpreted by me: Chest x-ray does not show any acute process. There are no pleural effusions, obvious pneumonia and there is no pneumothorax. - Medical Decision Making The patient had one episode of the palpitations earlier today that lasted for about 4 or 5 minutes. It has not restarted. EKG does not show any signs of ST elevation NV or dysrhythmia. Chest x-ray does not show any acute process. Labs are unremarkable. Vital signs stable throughout his ED course. Patient appears safe for discharge home at this time. He thinks he might be secondary to starting a different medication, a PPI. Nonetheless, he will be given a referral for cardiology and may need a Holter monitor. He will return to the ER with any worsening of symptoms or any acute distress. - Differential Diagnosis hyperthyroidism, electrolyte abnormalities, substance abuse, dysrhythmia Critical Care Time: No Critical care attestation.: If time is entered above; I have spent that time in minutes in the direct care of this critically ill patient, excluding procedure time. ED Disposition Clinical Impression: Palpitations Disposition: DC- TO HOME OR SELFCARE Is pt being admited?: No Condition: Stable Instructions: Palpitations (ED) Additional Instructions: Please follow-up with your primary care physician and/or director treasurer. I' ve given you a referral for a local c[employer] investment casting, Dr. Rojas, to follow up regarding your palpitations. Return to the emergency department with any return or worsening of your symptoms, or with any acute distress. Referrals: PRIMARY CARE, [Primary Care Provider] - 3-5 Days Time of Disposition: 01:37
[2017-11-08 00:40] VITALS: BP 116/59
--- NOTE | 2017-11-11 14:22 | XRay Report ---
FINAL REPORT EXAM: XR CHEST 1V AP HISTORY: palpitations and chest tightness TECHNIQUE: Single, portable chest x-ray. PRIORS: 06 October 2017. FINDINGS: Cardiac and mediastinal silhouette within normal limits. Lungs are normally expanded, without significant vascular congestion. No focal consolidation or apparent pneumothorax. Bony thorax grossly unremarkable. IMPRESSION: 1. No acute findings.
== END 2017-11-08 01:42 | disposition home or self-care (01) ==
LOC: ED 21:34
DX: R00.2 Palpitations (principal); K21.9 Gastro-esophageal reflux disease without esophagitis; Z90.49 Acquired absence of other specified parts of digestive tract; Z79.82 Long term (current) use of aspirin
CPT/HCPCS: 36415; 71045; 80048; 84439; 84443; 85025; 93005; 93010; 99283

== ENCOUNTER 2019-04-01 08:54 | Emergency (ER) | payer BC, OTHER ==
[2019-04-01 09:19] VITALS: BP 109/70
[2019-04-01] MEDS ORDERED: PROTONIX PO ONE (09:34)
[2019-04-01] MEDS ORDERED: LIDOCAINE VISCOUS 2% PO ONE (09:34)
[2019-04-01] MEDS ORDERED: PEPCID PO ONE (09:34)
[2019-04-01] MEDS ORDERED: ALUM-MAG HYDROX-SIMETH 200-200-20MG/5ML PO ONE (09:34)
--- NOTE | 2019-04-01 09:35 | Emergency Department Report ---
Vomiting/Diarrhea - HPI Chief Complaint: Chest Pain Stated Complaint: CHEST PAIN Time Seen by Provider: 04/01/19 09:29 Duration: 1 Day Severity: moderate Nausea/Vomiting Severity: None Diarrhea Severity: None Pain Location: Epigastric Pain Severity: Moderate Symptoms: Yes Able to Tolerate Fluids, No Watery Diarrhea, No Bloody diarrhea, No Fever, No Recent Unusual Foods, No Recent Untreated Water, No Recent use of Antibiotics, No Family w/ Similar Symptoms, No Contacts w/ Similar Symptoms, No Rash, No Hematuria, No Recent URI Symptoms Other History: 43 YO WITH EPIGASTRIC PAIN RAD TO THROAT. RECENTLY STOPPED HIS OMEPRAZOLE FOR HIS GERD. DRANK ETOH LAST NIGHT AND HE THINKS THATS WHAT STARTED THE PAIN. PAIN IS BURNING IN NATURE. NO N/V/D. NO FEVER/CHILLS. NO RUQ ABD PAIN. AMBULATORY. NON ILL APPEARING ED Review of Systems ROS: Stated complaint: CHEST PAIN Other details as noted in HPI Comment: All other systems reviewed and negative ED Past Medical Hx - Past Medical History Previous Medical History?: Yes Hx GERD: Yes - Surgical History Past Surgical History?: Yes Hx Appendectomy: Yes - Family History Family history: no significant - Social History Smoking Status: Never Smoker Substance Use Type: Alcohol - Medications Home Medications: Home Medications Medication Instructions Recorded Confirmed Last Taken Type Omeprazole 40 mg PO DAILY #30 capsule. 04/01/19 Unknown Rx Vomiting Diarrhea Exam - Exam General: Vital signs noted. No distress. Alert and acting appropriately. HEENT: Yes Moist Mucous Membranes, No Pharyngeal Erythema, No Pharyngeal Exudates, No Rhinorrhea, No Conjuctival Injection Neck: No Adenopathy, No Rigidity Lungs: Yes Clear Lung Sounds, Yes Good Air Exchange, No Wheezes, No Stridor Abdomen: Tenderness: No, Peritoneal Signs: No, Distention: No, Hyperactive Bowel sounds: No Skin exam: Rash: No Neurologic: Alert and oriented, no deficits. Musculoskeletal: Unremarkable. ED Course Vital Signs 04/01/19 09:14 Temperature 97.7 F Pulse Rate 61 Respiratory 22 Rate Blood Pressure 109/70 ED Medical Decision Making - EKG Data EKG shows normal: sinus rhythm Rate: normal - EKG Data When compared to previous EKG there are: no significant change Interpretation: no acute changes - Medical Decision Making A/C GERD OFF PPI GIVEN GI COCKTAIL WITH RELIEF PMH GERD PSH NONE NO CIG/DRUGS POS ETOH VSS ABD SNT NO N/V/D NO FEVER OR CHILLS DC HOME WITH PPI RX AND PCP/GI FOLLOW UP Vital Signs 04/01/19 09:14 Temperature 97.7 F Pulse Rate 61 Respiratory 22 Rate Blood Pressure 109/70 - Differential Diagnosis A/C GERD Critical care attestation.: If time is entered above; I have spent that time in minutes in the direct care of this critically ill patient, excluding procedure time. ED Disposition Clinical Impression: GERD (gastroesophageal reflux disease) Disposition: DC-01 TO HOME OR SELFCARE Is pt being admited?: No Does the pt Need Aspirin: No Condition: Stable Instructions: Gastroesophageal Reflux Disease (ED) Prescriptions: Omeprazole 40 mg PO DAILY #30 capsule.dr Referrals: [facility] [Outside] - 3-5 Days KANE CONLEY MD [Staff Physician] - 3-5 Days MARIA E KAISER MD [Staff Physician] - 3-5 Days SHERRON MORELAND MD [Staff Physician] - 3-5 Days Time of Disposition: 09:34
== END 2019-04-01 10:15 | disposition home or self-care (01) ==
LOC: ED 08:54
DX: K21.9 Gastro-esophageal reflux disease without esophagitis (principal)
CPT/HCPCS: 93005; 93010

== ENCOUNTER 2019-10-13 11:12 | Emergency (ER) | payer BC, OTHER ==
[2019-10-13] MEDS ORDERED: SODIUM CHLORIDE 0.9% 1000 ML 1,000 ML IV ONE (11:55)
[2019-10-13] MEDS ORDERED: ONDANSETRON 4 MG/2 ML INJ IV ONE (11:55)
[2019-10-13] MEDS ORDERED: HYOSCYAMINE SUBL 0.125 MG TAB SL ONE (11:56)
--- NOTE | 2019-10-13 11:59 | Emergency Department Report ---
ED Abdominal Pain HPI - General Chief Complaint: Abdominal Pain Stated Complaint: SEVERE STOMACH PAIN Time Seen by Provider: 10/13/19 11:55 Source: patient Mode of arrival: Ambulatory Limitations: No Limitations - History of Present Illness Initial Comments: 44-year-old -Russian male, stool of alcohol presents emergency department complaining of increased life stressors resulting in him drinking to $15 bottles of Emily daily and now he has developed a lot of dyspepsia and epigastric pain. Reports no hemoptysis no hematemesis no hematochezia no coffee-ground emesis. Reports no fever chills or sweats but has a sharp pain to the epigastric region that does radiate across that the abdomen off and on. No diarrhea no trauma. -: Gradual Severity: mild, moderate Quality: stabbing Consistency: constant Improves With: nothing Worsens With: nothing Associated Symptoms: nausea, vomiting. denies: constipation, dysuria, hematemesis, hematuria, anorexia - Related Data Previous Rx's Medication Instructions Recorded Last Taken Type Omeprazole 40 mg PO DAILY #30 capsule. 04/01/19 Unknown Rx Hyoscyamine Subl [Levsin Sl 0.125 0.125 mg SL Q6HR PRN #20 tab 10/13/19 Unknown Rx TAB] Ondansetron (Nf) [Zofran TAB] 8 mg PO Q8HR PRN #20 tablet 10/13/19 Unknown Rx Allergies Allergy/AdvReac Type Severity Reaction Status Date / Time No Known Allergies Allergy Verified 10/06/17 06:19 ED Review of Systems ROS: Stated complaint: SEVERE STOMACH PAIN Other details as noted in HPI Comment: All other systems reviewed and negative ED Past Medical Hx - Past Medical History Previous Medical History?: Yes Hx GERD: Yes - Surgical History Past Surgical History?: Yes Hx Appendectomy: Yes - Social History Smoking Status: Never Smoker Substance Use Type: Alcohol - Medications Home Medications: Home Medications Medication Instructions Recorded Confirmed Last Taken Type Omeprazole 40 mg PO DAILY #30 capsule. 04/01/19 Unknown Rx Hyoscyamine Subl [Levsin Sl 0.125 0.125 mg SL Q6HR PRN #20 tab 10/13/19 Unknown Rx TAB] Ondansetron (Nf) [Zofran TAB] 8 mg PO Q8HR PRN #20 tablet 10/13/19 Unknown Rx ED Physical Exam - General Limitations: No Limitations General appearance: alert, in no apparent distress - Head Head exam: Present: atraumatic, normocephalic - Eye Eye exam: Present: normal appearance, PERRL, EOMI Pupils: Present: normal accommodation - ENT ENT exam: Present: normal exam, normal orophraynx, mucous membranes moist - Neck Neck exam: Present: normal inspection, full ROM - Respiratory Respiratory exam: Present: normal lung sounds bilaterally. Absent: respiratory distress, wheezes, rales, chest wall tenderness, accessory muscle use - Cardiovascular Cardiovascular Exam: Present: regular rate, normal rhythm. Absent: systolic murmur, diastolic murmur, rubs, gallop - GI/Abdominal GI/Abdominal exam: Present: soft, tenderness (To the epigastric region with palpation but the abdomen is soft.), normal bowel sounds, other (No tenderness at McBurney's, no Castañeda sign, no [place] sign, no Balderas Jiang, no Rovsing). Absent: guarding - Rectal Rectal exam: Present: deferred - Extremities Exam Extremities exam: Present: normal inspection - Back Exam Back exam: Present: normal inspection. Absent: CVA tenderness (R), CVA tenderness (L) - Neurological Exam Neurological exam: Present: alert, oriented X3 - Psychiatric Psychiatric exam: Present: normal affect, normal mood - Skin Skin exam: Present: warm, dry, intact, normal color. Absent: rash ED Course Vital Signs 10/13/19 10/13/19 10/13/19 11:52 12:42 12:50 Temperature 98.1 F 98.6 F Pulse Rate 82 Respiratory 20 14 Rate Blood Pressure 108/75 Blood Pressure 118/84 [Right] O2 Sat by Pulse 99 100 Oximetry ED Medical Decision Making - Lab Data Result diagrams: 10/13/19 13:17 10/13/19 13:17 Lab Results 10/13/19 10/13/19 Range/Units 13:17 13:17 WBC 8.2 (4.5-11.0) K/mm3 RBC 5.00 (3.65-5.03) M/mm3 Hgb 14.6 (11.8-15.2) gm/dl Hct 44.5 (35.5-45.6) % MCV 89 (84-94) fl MCH 29 (28-32) pg MCHC 33 (32-34) % RDW 13.9 (13.2-15.2) % Plt Count 227 (140-440) K/mm3 Lymph % (Auto) 22.5 (13.4-35.0) % [place] % (Auto) 12.5 H (0.0-7.3) % Eos % (Auto) 1.8 (0.0-4.3) % Baso % (Auto) 0.4 (0.0-1.8) % Lymph # 1.8 (1.2-5.4) K/mm3 [place] # 1.0 H (0.0-0.8) K/mm3 Eos # 0.2 (0.0-0.4) K/mm3 Baso # 0.0 (0.0-0.1) K/mm3 Seg Neutrophils % 62.8 (40.0-70.0) % Seg Neutrophils # 5.2 (1.8-7.7) K/mm3 Sodium 139 (137-145) mmol/L Potassium 4.2 (3.6-5.0) mmol/L Chloride 100.2 (98-107) mmol/L Carbon Dioxide 29 (22-30) mmol/L Anion Gap 14 mmol/L BUN 9 (9-20) mg/dL Creatinine 0.8 (0.8-1.5) mg/dL Estimated GFR > 60 ml/min BUN/Creatinine Ratio 11 % Glucose 93 (75-100) mg/dL Calcium 9.7 (8.4-10.2) mg/dL Total Bilirubin 0.30 (0.1-1.2) mg/dL Direct Bilirubin < 0.2 (0-0.2) mg/dL Indirect Bilirubin 0.1 mg/dL AST 20 (5-40) units/L ALT 19 (7-56) units/L Alkaline Phosphatase 61 (35-129) units/L Total Protein 7.1 (6.3-8.2) g/dL Albumin 4.6 (3.9-5) g/dL Albumin/Globulin Ratio 1.8 % Lipase 23 (13-60) units/L - Medical Decision Making This patient presents with abdominal pain of unclear etiology. A CT scan was NOT performed to evaluate for potential causes of the abdominal pain, however, neither the clinical exam nor the history of present illness no laboratory findings has identified an emergent etiology for the abdominal pain. Mr. West is alert and oriented x3 he is ambulatory no distress tolerating p.o. has not shown any signs of nausea vomiting while here in the emergency department constantly in and out of the building on his cell phone and refusing CT scan and intravenous therapy. Nonetheless given the benign exam, the laboratory studies, and lack of CT, I have a very low suspicion for appendicitis, ischemic bowel, bowel perforation, or any other life threatening disease. I have discussed with the patient the level of uncertainty with undifferentiated abdominal pain and clearly explained the need to follow-up as noted on the discharge instructions, or return to the Emergency Department immediately if the pain worsens, develops fever, persistent and uncontrollable vomiting, or for any new symptoms or concerns. Critical care attestation.: If time is entered above; I have spent that time in minutes in the direct care of this critically ill patient, excluding procedure time. ED Disposition Clinical Impression: EtOH dependence, Abdominal pain, Nausea Disposition: DC-01 TO HOME OR SELFCARE Is pt being admited?: No Does the pt Need Aspirin: No Condition: Stable Instructions: Abuse of Alcohol (ED), At-Risk Alcohol Use (ED), Acute Abdominal Pain (ED), Gas and Bloating (ED), Abdominal Pain (ED) Prescriptions: Hyoscyamine Subl [Levsin Sl 0.125 TAB] 0.125 mg SL Q6HR PRN #20 tab PRN Reason: ABDOMINAL PAIN Ondansetron (Nf) [Zofran TAB] 8 mg PO Q8HR PRN #20 tablet PRN Reason: Nausea Referrals: PRIMARY CAREMD [Primary Care Provider] - 3-5 Days MARIANNA NOLAN MD [Staff Physician] - 3-5 Days
[2019-10-13 12:53] VITALS: BP 118/84
[2019-10-13 13:31] LABS: Basophils % (Auto) 0.4 % (0.0-1.8); Eosinophils # (Auto) 0.2 K/mm3 (0.0-0.4); Eosinophils % (Auto) 1.8 % (0.0-4.3); Hematocrit 44.5 % (35.5-45.6); Hemoglobin 14.6 gm/dl (11.8-15.2); Lymphocytes # (Auto) 1.8 K/mm3 (1.2-5.4); Lymphocytes % (Auto) 22.5 % (13.4-35.0); Mean Corpuscular HGB Conc 33 % (32-34); Mean Corpuscular Volume 89 fl (84-94); Monocytes % (Auto) 12.5 % (0.0-7.3); Platelet Count 227 K/mm3 (140-440); Red Cell Distribution Width 13.9 % (13.2-15.2)
[2019-10-13] MEDS ORDERED: ONDANSETRON 4 MG ODT TAB PO ONE (13:47)
[2019-10-13 13:54] LABS: Alanine Aminotransferase 19 units/L (7-56); Albumin 4.6 g/dL (3.9-5); BUN/Creatinine Ratio 11; Bilirubin,Direct < 0.2 mg/dL (0-0.2); Blood Urea Nitrogen 9 mg/dL (9-20); Calcium 9.7 mg/dL (8.4-10.2); Hemolysis Index 10
== END 2019-10-13 16:20 | disposition home or self-care (01) ==
LOC: ED 11:12
DX: F10.20 Alcohol dependence, uncomplicated (principal); R10.13 Epigastric pain; R11.2 Nausea with vomiting, unspecified; K21.9 Gastro-esophageal reflux disease without esophagitis; Z90.49 Acquired absence of other specified parts of digestive tract; Z79.899 Other long term (current) drug therapy
CPT/HCPCS: 36415; 80048; 80076; 83690; 85025; 99283; Q0162

== ENCOUNTER 2019-12-18 06:24 | Emergency (ER) | payer OTHER ==
[2019-12-18 06:35] VITALS: BP 107/75
--- NOTE | 2019-12-18 07:14 | XRay Report ---
CHEST 1 VIEW 7:08 AM INDICATION / CLINICAL INFORMATION: Chest Pain. COMPARISON: 10/27/19. FINDINGS: SUPPORT DEVICES: None. HEART / MEDIASTINUM: The heart size and pulmonary vasculature are normal. The aorta is normal in brett eileen. LUNGS / PLEURA: No significant pulmonary or pleural abnormality. No pneumothorax. ADDITIONAL FINDINGS: No significant additional findings. IMPRESSION: No acute abnormality or significant change. Signer Name: Erick West MD Signed: 12/18/2019 7:09 AM Workstation Name: [id number]
[2019-12-18 08:32] LABS: Basophils % (Auto) 0.6 % (0.0-1.8); Eosinophils # (Auto) 0.1 K/mm3 (0.0-0.4); Eosinophils % (Auto) 1.7 % (0.0-4.3); Hematocrit 44.1 % (35.5-45.6); Hemoglobin 14.2 gm/dl (11.8-15.2); Lymphocytes # (Auto) 1.5 K/mm3 (1.2-5.4); Lymphocytes % (Auto) 24.7 % (13.4-35.0); Mean Corpuscular HGB Conc 32 % (32-34); Mean Corpuscular Volume 91 fl (84-94); Monocytes # (Auto) 0.7 K/mm3 (0.0-0.8); Monocytes % (Auto) 11.8 % (0.0-7.3); Platelet Count 263 K/mm3 (140-440); Red Blood Count 4.87 M/mm3 (3.65-5.03); Red Cell Distribution Width 13.8 % (13.2-15.2)
[2019-12-18 08:51] LABS: BUN/Creatinine Ratio 11; Blood Urea Nitrogen 9 mg/dL (9-20); Calcium 9.8 mg/dL (8.4-10.2); Hemolysis Index 6
--- NOTE | 2019-12-18 13:13 | Emergency Department Report ---
ED General Adult HPI - General Chief complaint: Chest Pain Stated complaint: CHEST PAIN/DIZZINESS Time Seen by Provider: 12/18/19 10:20 Source: patient Mode of arrival: Ambulatory Limitations: No Limitations - History of Present Illness Initial comments: 40-year-old -[place] male presents emergency department complaining of a longstanding history episodes of chest pain at 8 which is worse with palpation and range of motion. States he awoken this morning and felt a little bit dizzy states that his job is strenuous and hot he does not hydrate very well he thought it was just secondary to hydration as he has felt similarly in the past and resolved with fluids when he felt a few aches and pains he was unsure if his acid reflux was kicking back pain. He seen a doctor for his acid reflux but is been trying to manage this without taking any medications. States that he does consume 2 bottles of wine per per day which he substituted in place of his previous alcohol consumption. He reports no nausea or vomiting. Reports no hemoptysis no hematemesis no hematochezia. Reports no fever chills or sweats - Related Data Previous Rx's Medication Instructions Recorded Last Taken Type Omeprazole 40 mg PO DAILY #30 capsule. 04/01/19 Unknown Rx Hyoscyamine Subl [Levsin Sl 0.125 0.125 mg SL Q6HR PRN #20 tab 10/13/19 Unknown Rx TAB] Ondansetron (Nf) [Zofran TAB] 8 mg PO Q8HR PRN #20 tablet 10/13/19 Unknown Rx Allergies Allergy/AdvReac Type Severity Reaction Status Date / Time morphine Allergy Unknown Verified 10/27/19 00:05 ED Review of Systems ROS: Stated complaint: CHEST PAIN/DIZZINESS Other details as noted in HPI Comment: All other systems reviewed and negative ED Past Medical Hx - Past Medical History Previous Medical History?: Yes Hx GERD: Yes - Surgical History Past Surgical History?: Yes Hx Appendectomy: Yes - Social History Smoking Status: Never Smoker Substance Use Type: Alcohol - Medications Home Medications: Home Medications Medication Instructions Recorded Confirmed Last Taken Type Omeprazole 40 mg PO DAILY #30 capsule. 04/01/19 Unknown Rx Hyoscyamine Subl [Levsin Sl 0.125 0.125 mg SL Q6HR PRN #20 tab 10/13/19 Unknown Rx TAB] Ondansetron (Nf) [Zofran TAB] 8 mg PO Q8HR PRN #20 tablet 10/13/19 Unknown Rx ED Physical Exam - General Limitations: No Limitations General appearance: alert, in no apparent distress - Head Head exam: Present: atraumatic, normocephalic - Eye Eye exam: Present: normal appearance, PERRL, EOMI. Absent: scleral icterus, conjunctival injection, periorbital swelling Pupils: Present: normal accommodation - ENT ENT exam: Present: normal exam, mucous membranes moist, TM's normal bilaterally - Neck Neck exam: Present: normal inspection, full ROM. Absent: tenderness, meningismus, thyromegaly - Respiratory Respiratory exam: Present: normal lung sounds bilaterally, chest wall tenderness (Tenderness with palpation to left upper chest. No bruising no step-off no lifts heaves or thrills.). Absent: respiratory distress, rales, rhonchi, accessory muscle use - Cardiovascular Cardiovascular Exam: Present: regular rate, normal rhythm. Absent: systolic murmur, diastolic murmur, rubs, gallop - GI/Abdominal GI/Abdominal exam: Present: soft, normal bowel sounds - Rectal Rectal exam: Present: deferred - Extremities Exam Extremities exam: Present: normal inspection - Back Exam Back exam: Present: normal inspection - Neurological Exam Neurological exam: Present: alert, oriented X3 - Psychiatric Psychiatric exam: Present: normal affect, normal mood - Skin Skin exam: Present: warm, dry, intact, normal color. Absent: rash ED Course Vital Signs 12/18/19 06:31 Temperature 97.4 F L Pulse Rate 71 Respiratory 20 Rate Blood Pressure 107/75 O2 Sat by Pulse 99 Oximetry ED Medical Decision Making - Lab Data Result diagrams: 12/18/19 07:58 12/18/19 07:58 - Radiology Data Radiology results: report reviewed [facility] [address] [place] [address] XRay Report Signed Patient: DOMINIC WEST MR#: [id number] : 1975 Acct:[id number] Age/Sex: 44 / M ADM Date: 12/18/19 Loc: ED Attending Dr: Ordering Physician: ED MD NOE Date of Service: 12/18/19 Procedure(s): XR chest 1V ap Accession Number(s): [id number] cc: ED MD NOE Fluoro Time In Minutes: CHEST 1 VIEW 7:08 AM INDICATION / CLINICAL INFORMATION: Chest Pain. COMPARISON: 10/27/19. FINDINGS: SUPPORT DEVICES: None. HEART / MEDIASTINUM: The heart size and pulmonary vasculature are normal. The aorta is normal in caliber. LUNGS / PLEURA: No significant pulmonary or pleural abnormality. No pneumothorax. ADDITIONAL FINDINGS: No significant additional findings. IMPRESSION: No acute abnormality or significant change. Signer Name: Erick West MD Signed: 12/18/2019 7:09 AM Workstation Name: [id number] Transcribed By: RT Dictated By: Erick West MD Electronically Authenticated By: Erick West MD Signed Date/Time: 12/18/19708 DD/ 8 TD/TT: - Medical Decision Making this patient presents with chest pain that is very unlikely angina or acute coronary syndrome. The emergency department evaluation has not identified any cause for suspicion that this chest pain has a cardiac etiology. Based on their history, EKG (which showed no evidence of ischemia or infarction) and imaging, in addition to the patient's physical exam, I see no evidence at this time for a malignant etiology for the patient's chest pain. There is no acute evidence for pulmonary embolus, acute myocardial infarction, pneumothorax, Boerhaeve syndrome, cardiac tamponade, thoracic artery dissection, or any other emergent cardiac, pulmonary or aortic pathology. Given the low pre-test probability for cardiac etiology of chest pain and the absence of any sign of ischemia or infarction, discharge for outpatient follow-up and further evaluation is reasonable. Orthostatics were normal I have explained to the patient that even though a cardiac problem is very unlikely, follow-up and further testing is required to reduce further the already small uncertainty that exists. Other life-threatening diagnoses have been considered. The patient understands the need to return immediately if their symptoms worsen or they develop any new symptoms, and not to engage in any significant exertional activity until follow-up is obtained. Critical care attestation.: If time is entered above; I have spent that time in minutes in the direct care of this critically ill patient, excluding procedure time. ED Disposition Clinical Impression: Chest pain Disposition: DC-01 TO HOME OR SELFCARE Is pt being admited?: No Does the pt Need Aspirin: No Condition: Stable Instructions: Noncardiac Chest Pain (ED), Chest Pain (ED), Costochondritis (ED) Referrals: AGUSTÍN IVEY,RUBEN [Other] - 3-5 Days Forms: Work/School Release Form(ED)
== END 2019-12-18 14:06 | disposition home or self-care (01) ==
LOC: ED 06:24
DX: R07.89 Other chest pain (principal); R42 Dizziness and giddiness; K21.9 Gastro-esophageal reflux disease without esophagitis; Z90.49 Acquired absence of other specified parts of digestive tract; Z79.899 Other long term (current) drug therapy
CPT/HCPCS: 36415; 71045; 80048; 84484; 85025; 93005; 99283

== ENCOUNTER 2020-02-21 12:04 | Emergency (ER) | payer OTHER ==
[2020-02-21 12:19] VITALS: BP 113/77
== END 2020-02-21 12:45 | disposition left against medical advice (07) ==
LOC: ED 12:04
DX: R51 Headache (principal); R06.02 Shortness of breath; R42 Dizziness and giddiness; Z53.21 Procedure and treatment not carried out due to patient leaving prior to being seen by health care provider

== ENCOUNTER 2020-08-20 08:54 | Emergency (ER) | payer OTHER ==
[2020-08-20] MEDS ORDERED: SODIUM CHLORIDE 0.9% 1000 ML 1,000 ML IV ONE (08:58)
[2020-08-20] MEDS ORDERED: ONDANSETRON 4 MG/2 ML INJ IV STA (08:58)
[2020-08-20 09:02] VITALS: BP 126/86
--- NOTE | 2020-08-20 09:02 | Emergency Department Report ---
ED N/V/D HPI - General Stated complaint: DRY MOUTH, HEADACHE, VOMITING Time Seen by Provider: 08/20/20 08:57 - History of Present Illness Initial comments: 44-year-old -Armenian male presents emerged department complaining of nausea and vomiting which is think is secondary to his increased/excessive alcohol consumption. Over the past several days he has been having increased consumption of alcohol due to some stressful situations going on in his life he reports not being suicidal or or or homicidal but coping with his his feelings in that manner. States last night he began to develop a vague abdominal discomfort to the upper abdomen associated with nausea and vomiting but no hemoptysis, no hematemesis, no hematochezia. Ports no fever, chills, sweats reports no chest pain, palpitations, dysuria, hematuria. He reports no auditory or visual hallucinations, no dizziness, no headache, no blurred blurred vision. He reports no sweats, no fever, no irritability, no hallucinations, no tachycardia and was able to sleep last night from 12 AM to 7 AM Associated Abdominal Pain: No Radiation: none Severity: mild, moderate Quality: dull Consistency: constant Improves with: none Worsens with: none Associated Symptoms: denies: cough, diaphoresis, shortness of breath, syncope - Related Data Previous Rx's Medication Instructions Recorded Last Taken Type Omeprazole 40 mg PO DAILY #30 capsule. 04/01/19 Unknown Rx Hyoscyamine Subl [Levsin Sl 0.125 0.125 mg SL Q6HR PRN #20 tab 10/13/19 Unknown Rx TAB] Ondansetron (Nf) [Zofran TAB] 8 mg PO Q8HR PRN #20 tablet 10/13/19 Unknown Rx Lansoprazole [Prevacid] 15 mg PO BID #30 cap 08/20/20 Unknown Rx Allergies Allergy/AdvReac Type Severity Reaction Status Date / Time morphine Allergy Unknown Verified 10/27/19 00:05 ED Review of Systems ROS: Stated complaint: DRY MOUTH, HEADACHE, VOMITING Other details as noted in HPI Comment: All other systems reviewed and negative ED Past Medical Hx - Past Medical History Hx GERD: Yes - Surgical History Hx Appendectomy: Yes - Social History Smoking Status: Never Smoker Substance Use Type: Alcohol - Medications Home Medications: Home Medications Medication Instructions Recorded Confirmed Last Taken Type Omeprazole 40 mg PO DAILY #30 capsule. 04/01/19 Unknown Rx Hyoscyamine Subl [Levsin Sl 0.125 0.125 mg SL Q6HR PRN #20 tab 10/13/19 Unknown Rx TAB] Ondansetron (Nf) [Zofran TAB] 8 mg PO Q8HR PRN #20 tablet 10/13/19 Unknown Rx Lansoprazole [Prevacid] 15 mg PO BID #30 cap 08/20/20 Unknown Rx ED Physical Exam - General General appearance: alert, in no apparent distress, other (Awake alert and oriented does not appear to be intoxicated) - Head Head exam: Present: atraumatic, normocephalic - Eye Eye exam: Present: normal appearance, PERRL, EOMI - ENT ENT exam: Present: mucous membranes moist - Neck Neck exam: Present: normal inspection - Respiratory Respiratory exam: Present: normal lung sounds bilaterally. Absent: respiratory distress - Cardiovascular Cardiovascular Exam: Present: regular rate, normal rhythm. Absent: systolic murmur, diastolic murmur, rubs, gallop - GI/Abdominal GI/Abdominal exam: Present: soft, normal bowel sounds - Rectal Rectal exam: Present: deferred - Extremities Exam Extremities exam: Present: normal inspection - Back Exam Back exam: Present: normal inspection - Neurological Exam Neurological exam: Present: alert, oriented X3, CN II-XII intact, normal gait - Expanded Neurological Exam Expanded Patient oriented to: Present: person, place, time Speech: Present: fluid speech Best Eye Response (Stratton): (4) open spontaneously Best Motor Response ([place]): (6) obeys commands Best Verbal Response (Sofía): (5) oriented [place] Total: 15 - Psychiatric Psychiatric exam: Present: normal affect, normal mood. Absent: flat affect, homicidal ideation, suicidal ideation - Expanded Psychiatric Exam Expanded Focused psych exam: Absent: delusional, paranoid, euphoric, restlessness, flight of ideas, loose associations - Skin Skin exam: Present: warm, dry, intact, normal color. Absent: rash ED Course Vital Signs 08/20/20 08/20/20 08/20/20 08:59 09:51 10:00 Temperature 98.0 F Pulse Rate 84 71 Respiratory 20 12 Rate Blood Pressure 126/86 O2 Sat by Pulse 100 97 99 Oximetry 08/20/20 08/20/20 08/20/20 10:16 10:30 10:46 Temperature Pulse Rate 67 66 Respiratory 13 17 16 Rate Blood Pressure O2 Sat by Pulse 100 89 100 Oximetry 08/20/20 08/20/20 08/20/20 11:11 11:15 11:31 Temperature Pulse Rate 70 67 75 Respiratory 14 15 11 L Rate Blood Pressure O2 Sat by Pulse 99 97 99 Oximetry 08/20/20 11:45 Temperature Pulse Rate 80 Respiratory 11 L Rate Blood Pressure O2 Sat by Pulse 97 Oximetry ED Medical Decision Making - Lab Data Result diagrams: 08/20/20 09:38 08/20/20 09:38 Critical care attestation.: If time is entered above; I have spent that time in minutes in the direct care of this critically ill patient, excluding procedure time. ED Disposition Clinical Impression: Volume depletion Abdominal pain Qualifiers: Abdominal location: epigastric Qualified Code(s): R10.13 - Epigastric pain Disposition: DC-01 TO HOME OR SELFCARE Is pt being admited?: No Does the pt Need Aspirin: No Condition: Stable Instructions: Abdominal Pain, Adult, [id number], Rehydration, Adult Additional Instructions: Increase fluids. Rx as directed or may substitute [id number] medication (Prevacid). Follow-up with your primary care provider. Return to the emergency department any acute change or problem. Prescriptions: Lansoprazole [Prevacid] 15 mg PO BID #30 cap Referrals: PRIMARY CARE, [Referring] - 3-5 Days
[2020-08-20] MEDS ORDERED: PANTOPRAZOLE 40 MG INJ IV ONE (09:27)
--- NOTE | 2020-08-20 09:32 | Emergency Department Report ---
ED General Adult HPI - General Chief complaint: Nausea/Vomiting/Diarrhea Stated complaint: DRY MOUTH, HEADACHE, VOMITING Time Seen by Provider: 08/20/20 08:57 Source: patient Mode of arrival: Ambulatory Limitations: No Limitations - History of Present Illness Initial comments: 44-year-old man who is not complaining of any active pain to include abdominal or headache at the time my encounter. He states that he drank excessively yesterday. Subsequently developed epigastric pain and dry heaves. He reported no sign of GI bleeding. He reported no change in his bowel movements. He denied fever or chills. He mentions some dry mouth. He denies any significant ongoing medical history. He denies substance abuse other than alcohol. He admits he used to "take a lot of Benadryl". He states he has no significant past medical history and takes no other medications. Consistent with his prior medical screening, he had no intent of self-harm by abusing alcohol. He arrives in the emergency department today in a sober condition. -: Gradual, hour(s) Location: abdomen Radiation: non-radiation Quality: other (Discomfort) Consistency: intermittent Improves with: none Worsens with: other (Triggered by alcohol abuse) Associated Symptoms: nausea/vomiting Treatments Prior to Arrival: none - Related Data Previous Rx's Medication Instructions Recorded Last Taken Type Omeprazole 40 mg PO DAILY #30 capsule. 04/01/19 Unknown Rx Hyoscyamine Subl [Levsin Sl 0.125 0.125 mg SL Q6HR PRN #20 tab 10/13/19 Unknown Rx TAB] Ondansetron (Nf) [Zofran TAB] 8 mg PO Q8HR PRN #20 tablet 10/13/19 Unknown Rx Lansoprazole [Prevacid] 15 mg PO BID #30 cap 08/20/20 Unknown Rx Allergies Allergy/AdvReac Type Severity Reaction Status Date / Time morphine Allergy Unknown Verified 10/27/19 00:05 ED Review of Systems ROS: Stated complaint: DRY MOUTH, HEADACHE, VOMITING Other details as noted in HPI Constitutional: denies: chills, fever Eyes: denies: eye pain, eye discharge, vision change ENT: denies: ear pain, throat pain Respiratory: denies: cough, shortness of breath, wheezing Cardiovascular: denies: chest pain, palpitations Endocrine: no symptoms reported. denies: increased hunger, increased thirst, increased urine Gastrointestinal: abdominal pain, nausea. denies: diarrhea, constipation, hematemesis, melena, hematochezia Genitourinary: denies: urgency, dysuria Musculoskeletal: denies: back pain, joint swelling, arthralgia Skin: denies: rash, lesions Neurological: denies: headache, weakness, paresthesias Psychiatric: denies: anxiety, depression Hematological/Lymphatic: denies: easy bleeding, easy bruising ED Past Medical Hx - Past Medical History Previous Medical History?: Yes Hx GERD: Yes - Surgical History Past Surgical History?: Yes Hx Appendectomy: Yes - Social History Smoking Status: Never Smoker Substance Use Type: Alcohol - Medications Home Medications: Home Medications Medication Instructions Recorded Confirmed Last Taken Type Omeprazole 40 mg PO DAILY #30 capsule. 04/01/19 Unknown Rx Hyoscyamine Subl [Levsin Sl 0.125 0.125 mg SL Q6HR PRN #20 tab 10/13/19 Unknown Rx TAB] Ondansetron (Nf) [Zofran TAB] 8 mg PO Q8HR PRN #20 tablet 10/13/19 Unknown Rx Lansoprazole [Prevacid] 15 mg PO BID #30 cap 08/20/20 Unknown Rx ED Physical Exam - General Limitations: No Limitations General appearance: alert, in no apparent distress - Head Head exam: Present: atraumatic, normocephalic - Eye Eye exam: Present: normal appearance. Absent: scleral icterus - ENT ENT exam: Present: mucous membranes dry - Neck Neck exam: Present: normal inspection - Respiratory Respiratory exam: Present: normal lung sounds bilaterally. Absent: respiratory distress - Cardiovascular Cardiovascular Exam: Present: regular rate, normal rhythm. Absent: systolic murmur, diastolic murmur, rubs, gallop - GI/Abdominal GI/Abdominal exam: Present: soft, normal bowel sounds. Absent: distended, tenderness, guarding, rebound - Rectal Rectal exam: Present: deferred - Extremities Exam Extremities exam: Present: normal inspection - Back Exam Back exam: Present: normal inspection - Neurological Exam Neurological exam: Present: alert, oriented X3, CN II-XII intact. Absent: motor sensory deficit - Psychiatric Psychiatric exam: Present: normal affect, normal mood - Skin Skin exam: Present: warm, dry, intact, normal color. Absent: rash ED Course Vital Signs 08/20/20 08:59 Temperature 98.0 F Pulse Rate 84 Respiratory 20 Rate Blood Pressure 126/86 O2 Sat by Pulse 100 Oximetry - Reevaluation(s) Reevaluation #1: Improved hydration. Patient now asymptomatic. States has primary care. Appropriate for outpatient disposition. 08/20/20 11:36 ED Medical Decision Making - Lab Data Result diagrams: 08/20/20 09:38 08/20/20 09:38 Laboratory Results - last 24 hr 08/20/20 08/20/20 08/20/20 09:38 09:38 09:38 WBC 8.2 RBC 5.04 H Hgb 15.2 Hct 45.5 MCV 90 MCH 30 MCHC 33 RDW 13.4 Plt Count 259 Lymph % (Auto) 24.3 Emmons % (Auto) 12.7 H Eos % (Auto) 0.9 Baso % (Auto) 0.9 Lymph # (Auto) 2.0 Emmons # (Auto) 1.0 H Eos # (Auto) 0.1 Baso # (Auto) 0.1 Seg Neutrophils % 61.2 Seg Neutrophils # 5.0 Sodium Potassium Chloride Carbon Dioxide Anion Gap BUN Creatinine Estimated GFR BUN/Creatinine Ratio Glucose Calcium Magnesium Total Bilirubin Direct Bilirubin Indirect Bilirubin AST ALT Alkaline Phosphatase Total Protein Albumin Albumin/Globulin Ratio Lipase 18 Urine Color Urine Turbidity Urine pH Ur Specific [place] Urine Protein Urine Glucose (UA) Urine Ketones Urine Blood Urine Nitrite Urine Bilirubin Urine Urobilinogen Ur Leukocyte Esterase Urine WBC (Auto) Urine RBC (Auto) Plasma/Serum Alcohol < 0.01 08/20/20 08/20/20 09:38 Unknown WBC RBC Hgb Hct MCV MCH MCHC RDW Plt Count Lymph % (Auto) Emmons % (Auto) Eos % (Auto) Baso % (Auto) Lymph # (Auto) Emmons # (Auto) Eos # (Auto) Baso # (Auto) Seg Neutrophils % Seg Neutrophils # Sodium 135 L Potassium 3.8 Chloride 98.1 Carbon Dioxide 27 Anion Gap 14 BUN 13 Creatinine 0.9 Estimated GFR > 60 BUN/Creatinine Ratio 14 Glucose 106 H Calcium 9.5 Magnesium 2.20 Total Bilirubin 0.50 Direct Bilirubin < 0.2 Indirect Bilirubin 0.3 AST 30 ALT 24 Alkaline Phosphatase 64 Total Protein 7.2 Albumin 4.7 Albumin/Globulin Ratio 1.9 Lipase Urine Color Straw Urine Turbidity Clear Urine pH 7.0 Ur Specific [place] 1.001 L Urine Protein <15 mg/dl Urine Glucose (UA) Neg Urine Ketones Neg Urine Blood Neg Urine Nitrite Neg Urine Bilirubin Neg Urine Urobilinogen < 2.0 Ur Leukocyte Esterase Neg Urine WBC (Auto) < 1.0 Urine RBC (Auto) < 1.0 Plasma/Serum Alcohol Critical care attestation.: If time is entered above; I have spent that time in minutes in the direct care of this critically ill patient, excluding procedure time. ED Disposition Clinical Impression: Volume depletion Abdominal pain Qualifiers: Abdominal location: epigastric Qualified Code(s): R10.13 - Epigastric pain Disposition: DC-01 TO HOME OR SELFCARE Is pt being admited?: No Does the pt Need Aspirin: No Condition: Stable Instructions: Rehydration, Adult, Abdominal Pain, Adult, [id number] Additional Instructions: Increase fluids. Rx as directed or may substitute [id number] medication (Prevacid). Follow-up with your primary care provider. Return to the emergency department any acute change or problem. Prescriptions: Lansoprazole [Prevacid] 15 mg PO BID #30 cap Referrals: PRIMARY CARE, [Referring] - 3-5 Days Time of Disposition: 11:37
[2020-08-20 10:15] LABS: Basophils # (Auto) 0.1 K/mm3 (0.0-0.1); Basophils % (Auto) 0.9 % (0.0-1.8); Eosinophils # (Auto) 0.1 K/mm3 (0.0-0.4); Eosinophils % (Auto) 0.9 % (0.0-4.3); Hematocrit 45.5 % (35.5-45.6); Hemoglobin 15.2 gm/dl (11.8-15.2); Lymphocytes % (Auto) 24.3 % (13.4-35.0); Mean Corpuscular HGB Conc 33 % (32-34); Mean Corpuscular Volume 90 fl (84-94); Monocytes % (Auto) 12.7 % (0.0-7.3); Platelet Count 259 K/mm3 (140-440); Red Blood Count 5.04 M/mm3 (3.65-5.03); Red Cell Distribution Width 13.4 % (13.2-15.2)
[2020-08-20 10:18] LABS: Alanine Aminotransferase 24 units/L (7-56); Albumin 4.7 g/dL (3.9-5); BUN/Creatinine Ratio 14; Blood Urea Nitrogen 13 mg/dL (9-20); Calcium 9.5 mg/dL (8.4-10.2); Hemolysis Index 8
[2020-08-20 10:23] LABS: Bilirubin,Direct < 0.2 mg/dL (0-0.2)
[2020-08-20 11:01] LABS: Bilirubin,Urine NEG (Negative); Blood,Urine NEG (Negative); Color,Urine Straw (Yellow); Protein,Urine <15 mg/dL mg/dL (Negative); RBC,Urine < 1.0 /HPF (0.0-6.0); Urobilinogen,Urine < 2.0 mg/dL (<2.0); WBC,Urine < 1.0 /HPF (0.0-6.0)
== END 2020-08-20 12:01 | disposition home or self-care (01) ==
LOC: ED 08:54
DX: E86.9 Volume depletion, unspecified (principal); R10.9 Unspecified abdominal pain; K21.9 Gastro-esophageal reflux disease without esophagitis; Z90.49 Acquired absence of other specified parts of digestive tract; Z79.899 Other long term (current) drug therapy
CPT/HCPCS: 36415; 80048; 80076; 81001; 83690; 83735; 85025; 96361; 96374; 96375; 99283; C9113; J2405; J7030; 80320; G0480

== ENCOUNTER 2020-10-08 08:25 | Emergency (ER) | payer OTHER ==
[2020-10-08 08:53] VITALS: BP 121/76
== END 2020-10-08 19:00 | disposition left against medical advice (07) ==
LOC: ED 08:25
DX: R06.00 Dyspnea, unspecified (principal); Z53.21 Procedure and treatment not carried out due to patient leaving prior to being seen by health care provider

== ENCOUNTER 2020-11-09 16:12 | Emergency (ER) | payer BC, OTHER ==
--- NOTE | 2020-11-09 17:27 | Emergency Department Report ---
ED General Adult HPI - General Chief complaint: Chest Pain Stated complaint: CHEST PAIN Time Seen by Provider: 11/09/20 16:46 Source: patient Mode of arrival: Wheelchair Limitations: No Limitations - History of Present Illness Initial comments: Patient presents to the emergency department with a chief complaint of spiking his blood pressure and chest tightness that happened this morning. Patient states that he was under stressful situation secondary to an argument due to a phone call he had received. Patient states that his chest pain has completely resolved and his blood pressure has gone back to baseline. Patient denies have any history of hypertension or any cardiac risk factors. Patient denies any abdominal pain, headache, neuro deficits. -: Sudden Severity scale (0 -10): 0 Consistency: constant Improves with: none Worsens with: none Associated Symptoms: denies other symptoms Treatments Prior to Arrival: none - Related Data Previous Rx's Medication Instructions Recorded Last Taken Type Omeprazole 40 mg PO DAILY #30 capsule. 04/01/19 Unknown Rx Hyoscyamine Subl [Levsin Sl 0.125 0.125 mg SL Q6HR PRN #20 tab 10/13/19 Unknown Rx TAB] Ondansetron (Nf) [Zofran TAB] 8 mg PO Q8HR PRN #20 tablet 10/13/19 Unknown Rx Lansoprazole [Prevacid] 15 mg PO BID #30 cap 08/20/20 Unknown Rx Allergies Allergy/AdvReac Type Severity Reaction Status Date / Time morphine Allergy Unknown Verified 10/27/19 00:05 ED Review of Systems ROS: Stated complaint: CHEST PAIN Other details as noted in HPI Comment: All other systems reviewed and negative Constitutional: denies: chills, fever Eyes: denies: eye pain, eye discharge, vision change ENT: denies: ear pain, throat pain Respiratory: denies: cough, shortness of breath, wheezing Cardiovascular: denies: chest pain, palpitations Endocrine: no symptoms reported Gastrointestinal: denies: abdominal pain, nausea, diarrhea Genitourinary: denies: urgency, dysuria Musculoskeletal: denies: back pain, joint swelling, arthralgia Skin: denies: rash, lesions Neurological: denies: headache, weakness, paresthesias Psychiatric: denies: anxiety, depression Hematological/Lymphatic: denies: easy bleeding, easy bruising ED Past Medical Hx - Past Medical History Previous Medical History?: No Hx GERD: Yes - Surgical History Past Surgical History?: No Hx Appendectomy: Yes - Social History Smoking Status: Never Smoker Substance Use Type: Alcohol - Medications Home Medications: Home Medications Medication Instructions Recorded Confirmed Last Taken Type Omeprazole 40 mg PO DAILY #30 capsule. 04/01/19 Unknown Rx Hyoscyamine Subl [Levsin Sl 0.125 0.125 mg SL Q6HR PRN #20 tab 10/13/19 Unknown Rx TAB] Ondansetron (Nf) [Zofran TAB] 8 mg PO Q8HR PRN #20 tablet 10/13/19 Unknown Rx Lansoprazole [Prevacid] 15 mg PO BID #30 cap 08/20/20 Unknown Rx ED Physical Exam - General Limitations: No Limitations General appearance: alert, in no apparent distress - Head Head exam: Present: atraumatic, normocephalic - Eye Eye exam: Present: normal appearance, PERRL, EOMI - ENT ENT exam: Present: mucous membranes moist - Neck Neck exam: Present: normal inspection - Respiratory Respiratory exam: Present: normal lung sounds bilaterally. Absent: respiratory distress - Cardiovascular Cardiovascular Exam: Present: regular rate, normal rhythm. Absent: systolic murmur, diastolic murmur, rubs, gallop - GI/Abdominal GI/Abdominal exam: Present: soft, normal bowel sounds. Absent: distended, tenderness - Rectal Rectal exam: Present: deferred - Extremities Exam Extremities exam: Present: normal inspection - Back Exam Back exam: Present: normal inspection - Neurological Exam Neurological exam: Present: alert, oriented X3, CN II-XII intact. Absent: motor sensory deficit - Psychiatric Psychiatric exam: Present: normal affect, normal mood - Skin Skin exam: Present: warm, dry, intact, normal color. Absent: rash ED Course Vital Signs 11/09/20 11/09/20 16:28 16:56 Temperature 98.9 F 98.6 F Pulse Rate 94 H 73 Respiratory 20 15 Rate Blood Pressure 123/88 Blood Pressure 125/83 [Right] O2 Sat by Pulse 96 99 Oximetry ED Medical Decision Making - Lab Data Result diagrams: 11/09/20 17:30 11/09/20 17:30 Lab Results 11/09/20 11/09/20 11/09/20 Range/Units 17:30 17:30 17:36 WBC 14.9 H (4.5-11.0) K/mm3 RBC 4.61 (3.65-5.03) M/mm3 Hgb 13.5 (11.8-15.2) gm/dl Hct 41.3 (35.5-45.6) % MCV 90 (84-94) fl MCH 29 (28-32) pg MCHC 33 (32-34) % RDW 13.8 (13.2-15.2) % Plt Count 251 (140-440) K/mm3 Lymph % (Auto) 9.0 L (13.4-35.0) % O'Brien % (Auto) 10.0 H (0.0-7.3) % Eos % (Auto) 0.0 (0.0-4.3) % Baso % (Auto) 0.2 (0.0-1.8) % Lymph # (Auto) 1.3 (1.2-5.4) K/mm3 O'Brien # (Auto) 1.5 H (0.0-0.8) K/mm3 Eos # (Auto) 0.0 (0.0-0.4) K/mm3 Baso # (Auto) 0.0 (0.0-0.1) K/mm3 Seg Neutrophils % 80.8 H (40.0-70.0) % Seg Neutrophils # 12.1 H (1.8-7.7) K/mm3 Sodium 136 L (137-145) mmol/L Potassium 4.2 (3.6-5.0) mmol/L Chloride 97.5 L (98-107) mmol/L Carbon Dioxide 28 (22-30) mmol/L Anion Gap 15 mmol/L BUN 8 L (9-20) mg/dL Creatinine 0.7 L (0.8-1.3) mg/dL Estimated GFR > 60 ml/min BUN/Creatinine Ratio 11 % Glucose 94 (75-100) mg/dL Calcium 9.5 (8.4-10.2) mg/dL Total Bilirubin 0.30 (0.1-1.2) mg/dL AST 20 (5-40) units/L ALT 17 (7-56) units/L Alkaline Phosphatase 62 (35-129) units/L Troponin T < 0.010 (0.00-0.029) ng/mL Total Protein 7.5 (6.3-8.2) g/dL Albumin 4.7 (3.9-5) g/dL Albumin/Globulin Ratio 1.7 % Urine Color Straw (Yellow) Urine Turbidity Clear (Clear) Urine pH 7.0 (5.0-7.0) Ur Specific [place] 1.008 (1.003-1.030) Urine Protein <15 mg/dl (Negative) mg/dL Urine Glucose (UA) Neg (Negative) mg/dL Urine Ketones Neg (Negative) mg/dL Urine Blood Sm (Negative) Urine Nitrite Neg (Negative) Urine Bilirubin Neg (Negative) Urine Urobilinogen < 2.0 (<2.0) mg/dL Ur Leukocyte Esterase Neg (Negative) Urine WBC (Auto) 1.0 (0.0-6.0) /HPF Urine RBC (Auto) 1.0 (0.0-6.0) /HPF Urine Mucus Few /HPF Urine Opiates Screen Urine Methadone Screen Ur Barbiturates Screen Ur Phencyclidine Scrn Ur Amphetamines Screen U Benzodiazepines Scrn Urine Cocaine Screen U Marijuana (THC) Screen Drugs of Abuse Note 11/09/20 Range/Units 17:36 WBC (4.5-11.0) K/mm3 RBC (3.65-5.03) M/mm3 Hgb (11.8-15.2) gm/dl Hct (35.5-45.6) % MCV (84-94) fl MCH (28-32) pg MCHC (32-34) % RDW (13.2-15.2) % Plt Count (140-440) K/mm3 Lymph % (Auto) (13.4-35.0) % O'Brien % (Auto) (0.0-7.3) % Eos % (Auto) (0.0-4.3) % Baso % (Auto) (0.0-1.8) % Lymph # (Auto) (1.2-5.4) K/mm3 O'Brien # (Auto) (0.0-0.8) K/mm3 Eos # (Auto) (0.0-0.4) K/mm3 Baso # (Auto) (0.0-0.1) K/mm3 Seg Neutrophils % (40.0-70.0) % Seg Neutrophils # (1.8-7.7) K/mm3 Sodium (137-145) mmol/L Potassium (3.6-5.0) mmol/L Chloride (98-107) mmol/L Carbon Dioxide (22-30) mmol/L Anion Gap mmol/L BUN (9-20) mg/dL Creatinine (0.8-1.3) mg/dL Estimated GFR ml/min BUN/Creatinine Ratio % Glucose (75-100) mg/dL Calcium (8.4-10.2) mg/dL Total Bilirubin (0.1-1.2) mg/dL AST (5-40) units/L ALT (7-56) units/L Alkaline Phosphatase (35-129) units/L Troponin T (0.00-0.029) ng/mL Total Protein (6.3-8.2) g/dL Albumin (3.9-5) g/dL Albumin/Globulin Ratio % Urine Color (Yellow) Urine Turbidity (Clear) Urine pH (5.0-7.0) Ur Specific [place] (1.003-1.030) Urine Protein (Negative) mg/dL Urine Glucose (UA) (Negative) mg/dL Urine Ketones (Negative) mg/dL Urine Blood (Negative) Urine Nitrite (Negative) Urine Bilirubin (Negative) Urine Urobilinogen (<2.0) mg/dL Ur Leukocyte Esterase (Negative) Urine WBC (Auto) (0.0-6.0) /HPF Urine RBC (Auto) (0.0-6.0) /HPF Urine Mucus /HPF Urine Opiates Screen Negative Urine Methadone Screen Negative Ur Barbiturates Screen Negative Ur Phencyclidine Scrn Negative Ur Amphetamines Screen Negative U Benzodiazepines Scrn Negative Urine Cocaine Screen Positive U Marijuana (THC) Screen Negative Drugs of Abuse Note Disclamer - EKG Data -: EKG Interpreted by Ok EKG shows normal: sinus rhythm Rate: normal - Radiology Data Radiology results: report reviewed - Medical Decision Making Discussed results with the patient The patient has elevated white count likely secondary to acute stress reaction Critical care attestation.: If time is entered above; I have spent that time in minutes in the direct care of this critically ill patient, excluding procedure time. ED Disposition Clinical Impression: Nonspecific chest pain Disposition: DC-01 TO HOME OR SELFCARE Is pt being admited?: No Does the pt Need Aspirin: No Condition: Stable Instructions: Nonspecific Chest Pain, Adult Additional Instructions: Return if worse Referrals: PRIMARY CARE, [Primary Care Provider] - 3-5 Days CARBUCCIA,MARIANNA, MD [Staff Physician] - 3-5 Days Time of Disposition: 18:59 Heart Score - HEART Score History: Slightly suspicious EKG: Normal Age: 45-65 Risk factors: No known risk factors Troponin: < normal limit HEART Score: 1 - EKG Read Time Time EKG Completed: 00:00 EKG Read Time: 00:00
[2020-11-09 17:51] LABS: Bilirubin,Urine NEG (Negative); Blood,Urine SM (Negative); Color,Urine Straw (Yellow); Mucus,Urine FEW /HPF; Protein,Urine <15 mg/dL mg/dL (Negative); Urobilinogen,Urine < 2.0 mg/dL (<2.0)
[2020-11-09 17:53] LABS: Basophils % (Auto) 0.2 % (0.0-1.8); Hematocrit 41.3 % (35.5-45.6); Hemoglobin 13.5 gm/dl (11.8-15.2); Lymphocytes # (Auto) 1.3 K/mm3 (1.2-5.4); Mean Corpuscular HGB Conc 33 % (32-34); Mean Corpuscular Volume 90 fl (84-94); Monocytes # (Auto) 1.5 K/mm3 (0.0-0.8); Platelet Count 251 K/mm3 (140-440); Red Blood Count 4.61 M/mm3 (3.65-5.03); Red Cell Distribution Width 13.8 % (13.2-15.2)
--- NOTE | 2020-11-09 17:55 | XRay Report ---
CHEST 1 VIEW 11/09/2020 5:11 PM INDICATION / CLINICAL INFORMATION: Chest Pain. COMPARISON: 12/18/19. FINDINGS: SUPPORT DEVICES: None. HEART / MEDIASTINUM: The heart size and pulmonary vasculature are normal. The aorta is normal in brett eileen. LUNGS / PLEURA: No significant pulmonary or pleural abnormality. No pneumothorax. ADDITIONAL FINDINGS: No significant additional findings. IMPRESSION: No acute abnormality or significant change. Signer Name: Erick West MD Signed: 11/09/2020 5:51 PM Workstation Name: [id number]
[2020-11-09 17:58] LABS: Amphetamine Screen,Urine Negative; Benzodiazepines Screen,Urine Negative; Cannabinoid Screen,Urine Negative; Methadone Screen,Urine Negative; Opiate Screen,Urine Negative
[2020-11-09 18:09] LABS: Cocaine Screen,Urine Positive
[2020-11-09 18:11] LABS: Alanine Aminotransferase 17 units/L (7-56); Albumin 4.7 g/dL (3.9-5); Blood Urea Nitrogen 8 mg/dL (9-20); Calcium 9.5 mg/dL (8.4-10.2); Hemolysis Index 8
[2020-11-09 18:17] LABS: BUN/Creatinine Ratio 11
[2020-11-09 19:48] VITALS: BP 126/81
--- NOTE | 2020-11-11 09:56 | Electrocardiograph Report ---
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
== END 2020-11-09 19:40 | disposition home or self-care (01) ==
LOC: ED 16:12
DX: R07.89 Other chest pain (principal); K21.9 Gastro-esophageal reflux disease without esophagitis; Z72.89 Other problems related to lifestyle; Z88.5 Allergy status to narcotic agent; Z79.899 Other long term (current) drug therapy
CPT/HCPCS: 36415; 71045; 80053; 80307; 81001; 84484; 85025; 93005; 99284

== ENCOUNTER 2020-12-06 11:37 | Emergency (ER) | payer BC ==
[2020-12-06 12:26] VITALS: BP 124/84
[2020-12-06 13:29] LABS: Basophils # (Auto) 0.1 K/mm3 (0.0-0.1); Basophils % (Auto) 0.6 % (0.0-1.8); Eosinophils # (Auto) 0.1 K/mm3 (0.0-0.4); Hematocrit 41.3 % (35.5-45.6); Hemoglobin 13.5 gm/dl (11.8-15.2); Lymphocytes # (Auto) 1.9 K/mm3 (1.2-5.4); Lymphocytes % (Auto) 21.2 % (13.4-35.0); Mean Corpuscular HGB Conc 33 % (32-34); Mean Corpuscular Volume 89 fl (84-94); Monocytes # (Auto) 1.1 K/mm3 (0.0-0.8); Monocytes % (Auto) 12.5 % (0.0-7.3); Platelet Count 261 K/mm3 (140-440); Red Blood Count 4.62 M/mm3 (3.65-5.03); Red Cell Distribution Width 13.9 % (13.2-15.2)
[2020-12-06 13:50] LABS: Alanine Aminotransferase 15 units/L (7-56); Albumin 4.3 g/dL (3.9-5); BUN/Creatinine Ratio 15; Blood Urea Nitrogen 12 mg/dL (9-20); Calcium 9.6 mg/dL (8.4-10.2); Hemolysis Index 0
[2020-12-06 15:14] LABS: Bilirubin,Urine NEG (Negative); Blood,Urine NEG (Negative); Color,Urine Yellow (Yellow); Mucus,Urine FEW /HPF; Protein,Urine <15 mg/dL mg/dL (Negative); Urobilinogen,Urine < 2.0 mg/dL (<2.0)
--- NOTE | 2020-12-06 15:34 | Emergency Department Report ---
ED General Adult HPI - General Chief complaint: Abdominal Pain Stated complaint: STOMACK PAIN HEADACHE Time Seen by Provider: 12/06/20 14:29 Source: patient Mode of arrival: Ambulatory Limitations: No Limitations - History of Present Illness Initial comments: 45-year-old -[place] male patient presents with complaints of epigastric pain intermittently for the past 2 weeks, worsening over the past day and a half. He reports the pain began when he switched from eating a vegetarian diet to a meat-based diet and began drinking alcohol heavily daily. He denies any vomiting, melena/hematochezia, chest pain, fever/chills/sweats, shortness of rosita ath, constipation, or urinary symptoms. Patient rates his current pain as a 4/10 in severity. He reports he is drinking about 3 L of liquor a week -: Gradual Severity scale (0 -10): 5 - Related Data Previous Rx's Medication Instructions Recorded Last Taken Type Omeprazole 40 mg PO DAILY #30 capsule. 04/01/19 Unknown Rx Hyoscyamine Subl [Levsin Sl 0.125 0.125 mg SL Q6HR PRN #20 tab 10/13/19 Unknown Rx TAB] Ondansetron (Nf) [Zofran TAB] 8 mg PO Q8HR PRN #20 tablet 10/13/19 Unknown Rx Lansoprazole [Prevacid] 15 mg PO BID #30 cap 08/20/20 Unknown Rx Famotidine [Pepcid] 20 mg PO BID #20 tablet 12/06/20 Unknown Rx Allergies Allergy/AdvReac Type Severity Reaction Status Date / Time morphine Allergy Unknown Verified 10/27/19 00:05 ED Review of Systems ROS: Stated complaint: STOMACK PAIN HEADACHE Other details as noted in HPI Constitutional: denies: chills, fever, malaise ENT: denies: throat pain Respiratory: denies: cough, shortness of breath Cardiovascular: denies: chest pain Gastrointestinal: abdominal pain, nausea. denies: vomiting, diarrhea, constipation, hematemesis, melena, hematochezia Musculoskeletal: denies: back pain Skin: denies: change in color Hematological/Lymphatic: denies: swollen glands ED Past Medical Hx - Past Medical History Previous Medical History?: Yes Hx GERD: Yes - Surgical History Hx Appendectomy: Yes - Social History Smoking Status: Never Smoker Substance Use Type: None - Medications Home Medications: Home Medications Medication Instructions Recorded Confirmed Last Taken Type Omeprazole 40 mg PO DAILY #30 capsule. 04/01/19 Unknown Rx Hyoscyamine Subl [Levsin Sl 0.125 0.125 mg SL Q6HR PRN #20 tab 10/13/19 Unknown Rx TAB] Ondansetron (Nf) [Zofran TAB] 8 mg PO Q8HR PRN #20 tablet 10/13/19 Unknown Rx Lansoprazole [Prevacid] 15 mg PO BID #30 cap 08/20/20 Unknown Rx Famotidine [Pepcid] 20 mg PO BID #20 tablet 12/06/20 Unknown Rx ED Physical Exam - General Limitations: No Limitations General appearance: alert, in no apparent distress - Head Head exam: Present: atraumatic, normocephalic - Eye Eye exam: Present: normal appearance. Absent: scleral icterus - Respiratory Respiratory exam: Present: normal lung sounds bilaterally. Absent: respiratory distress - Cardiovascular Cardiovascular Exam: Present: regular rate, normal rhythm - GI/Abdominal GI/Abdominal exam: Present: soft, normal bowel sounds. Absent: distended, tenderness, guarding, rebound, rigid - Neurological Exam Neurological exam: Present: alert, oriented X3 - Psychiatric Psychiatric exam: Present: normal affect, normal mood - Skin Skin exam: Present: warm, dry, intact, normal color. Absent: rash ED Course Vital Signs 12/06/20 12:26 Temperature 98.5 F Pulse Rate 75 Respiratory 16 Rate Blood Pressure 124/84 [Right] O2 Sat by Pulse 99 Oximetry ED Medical Decision Making - Lab Data Result diagrams: 12/06/20 13:09 12/06/20 13:09 - Medical Decision Making 45-year-old -[place] male patient presents with complaints of epigastric pain intermittently for the past 2 weeks, worsening over the past day and a half. He reports the pain began when he switched from eating a vegetarian diet to a meat-based diet and began drinking alcohol heavily daily. He denies any vomiting, melena/hematochezia, chest pain, fever/chills/sweats, shortness of breath, constipation, or urinary symptoms. Patient rates his current pain as a 4/10 in severity. He reports he is drinking about 3 L of liquor a week No tenderness of abdomen noted on exam. Labs are within normal limits. Given patient's history, suspect GERD/gastritis. Will treat with Pepcid. Patient strongly advised to decrease alcohol intake. Also recommend follow-up with primary care doctor in 3 days. His vitals are normal, he is well-appearing, he is stable for discharge home. Discussed very strict return precautions in detail with patient verbalizes understanding. Critical care attestation.: If time is entered above; I have spent that time in minutes in the direct care of this critically ill patient, excluding procedure time. ED Disposition Clinical Impression: Epigastric pain Disposition: DC-01 TO HOME OR SELFCARE Is pt being admited?: No Condition: Stable Instructions: Abdominal Pain, Adult, Pain Without a Known Cause, Gastritis, Adult Prescriptions: Famotidine [Pepcid] 20 mg PO BID #20 tablet Referrals: PRIMARY CARE, [Referring] - 3-5 Days
== END 2020-12-06 16:42 | disposition home or self-care (01) ==
LOC: ED 11:37
DX: R10.13 Epigastric pain (principal); K21.9 Gastro-esophageal reflux disease without esophagitis; Z90.49 Acquired absence of other specified parts of digestive tract; Z79.899 Other long term (current) drug therapy; Z88.8 Allergy status to other drugs, medicaments and biological substances
CPT/HCPCS: 36415; 80053; 81001; 83690; 85025

== ENCOUNTER 2021-01-10 09:28 | Emergency (ER) | payer BC ==
[2021-01-10 09:41] VITALS: BP 114/78
== END 2021-01-10 12:05 | disposition left against medical advice (07) ==
LOC: ED 09:28
DX: R10.9 Unspecified abdominal pain (principal); Z53.21 Procedure and treatment not carried out due to patient leaving prior to being seen by health care provider

== ENCOUNTER 2021-02-18 08:14 | Emergency (ER) | payer BC, OTHER ==
[2021-02-18 08:28] VITALS: BP 128/87
[2021-02-18 10:33] LABS: Basophils % (Auto) 0.4 % (0.0-1.8); Eosinophils % (Auto) 0.1 % (0.0-4.3); Hematocrit 40.6 % (35.5-45.6); Hemoglobin 13.7 gm/dl (11.8-15.2); Lymphocytes # (Auto) 1.5 K/mm3 (1.2-5.4); Mean Corpuscular HGB Conc 34 % (32-34); Mean Corpuscular Volume 90 fl (84-94); Monocytes # (Auto) 1.1 K/mm3 (0.0-0.8); Monocytes % (Auto) 11.8 % (0.0-7.3); Platelet Count 250 K/mm3 (140-440); Red Blood Count 4.52 M/mm3 (3.65-5.03); Red Cell Distribution Width 13.9 % (13.2-15.2)
--- NOTE | 2021-02-18 10:41 | Emergency Department Report ---
ED General Adult HPI - General Chief complaint: Abdominal Pain Stated complaint: ABD PAIN Time Seen by Provider: 02/18/21 10:11 Source: patient Mode of arrival: Ambulatory Limitations: No Limitations - History of Present Illness Initial comments: Patient is a 45-year-old male presents emergency room with complaints of upper abdominal discomfort that began 2 days ago. He states it is intermittent and it is worse after eating. He states it is typically worse after eating meat. He has associated nausea. He denies any vomiting, diarrhea, fever, urinary symptoms, hematochezia, melena, hematemesis. He denies any past medical history. He has an allergy to morphine. He states his only past abdominal surgical history is an appendectomy. - Related Data Previous Rx's Medication Instructions Recorded Last Taken Type Omeprazole 40 mg PO DAILY #30 capsule. 04/01/19 Unknown Rx Hyoscyamine Subl [Levsin Sl 0.125 0.125 mg SL Q6HR PRN #20 tab 10/13/19 Unknown Rx TAB] Ondansetron (Nf) [Zofran TAB] 8 mg PO Q8HR PRN #20 tablet 10/13/19 Unknown Rx Lansoprazole [Prevacid] 15 mg PO BID #30 cap 08/20/20 Unknown Rx Famotidine [Pepcid] 20 mg PO BID #20 tablet 12/06/20 Unknown Rx Famotidine [Pepcid] 40 mg PO QHS #30 tablet 02/18/21 Unknown Rx Ondansetron [Zofran Odt] 4 mg PO Q8HR PRN #8 tab.rapdis 02/18/21 Unknown Rx Sucralfate [Carafate] 1 gm PO ACHS 7 Days #21 tablet 02/18/21 Unknown Rx Allergies Allergy/AdvReac Type Severity Reaction Status Date / Time morphine Allergy Unknown Verified 02/18/21 08:28 ED Review of Systems ROS: Stated complaint: ABD PAIN Other details as noted in HPI Comment: All other systems reviewed and negative ED Past Medical Hx - Past Medical History Hx GERD: Yes - Surgical History Hx Appendectomy: Yes - Social History Smoking Status: Never Smoker Substance Use Type: None - Medications Home Medications: Home Medications Medication Instructions Recorded Confirmed Last Taken Type Omeprazole 40 mg PO DAILY #30 capsule. 04/01/19 Unknown Rx Hyoscyamine Subl [Levsin Sl 0.125 0.125 mg SL Q6HR PRN #20 tab 10/13/19 Unknown Rx TAB] Ondansetron (Nf) [Zofran TAB] 8 mg PO Q8HR PRN #20 tablet 10/13/19 Unknown Rx Lansoprazole [Prevacid] 15 mg PO BID #30 cap 08/20/20 Unknown Rx Famotidine [Pepcid] 20 mg PO BID #20 tablet 12/06/20 Unknown Rx Famotidine [Pepcid] 40 mg PO QHS #30 tablet 02/18/21 Unknown Rx Ondansetron [Zofran Odt] 4 mg PO Q8HR PRN #8 tab.rapdis 02/18/21 Unknown Rx Sucralfate [Carafate] 1 gm PO ACHS 7 Days #21 tablet 02/18/21 Unknown Rx ED Physical Exam - General Limitations: No Limitations General appearance: alert, in no apparent distress - Head Head exam: Present: atraumatic, normocephalic - Eye Eye exam: Present: normal appearance - ENT ENT exam: Present: mucous membranes moist - Respiratory Respiratory exam: Present: normal lung sounds bilaterally. Absent: respiratory distress, wheezes, rales, rhonchi, stridor, chest wall tenderness, accessory muscle use, decreased breath sounds, prolonged expiratory - Cardiovascular Cardiovascular Exam: Present: regular rate, normal rhythm, normal heart sounds. Absent: systolic murmur, diastolic murmur, rubs, gallop - GI/Abdominal GI/Abdominal exam: Present: soft, normal bowel sounds, other (healed prior surgical scar in the RLQ). Absent: distended, tenderness, guarding, rebound, rigid - Neurological Exam Neurological exam: Present: alert, oriented X3 - Psychiatric Psychiatric exam: Present: normal affect, normal mood - Skin Skin exam: Present: warm, dry, intact ED Course Vital Signs 02/18/21 08:27 Temperature 98.9 F Pulse Rate 84 Respiratory 18 Rate Blood Pressure 128/87 [Left] O2 Sat by Pulse 98 Oximetry - Reevaluation(s) Reevaluation #1: 02/18/21 12:05 Upon discharge patient is stating that the pain radiates into his chest which has been going on for a few days, I advised patient that acid reflux can radiate into the chest through the esophagus. Patient states that he wants his chest checked out, order EKG troponin and x-ray if normal patient can be discharged home, he has no cardiac risk factors ED Medical Decision Making - Lab Data Result diagrams: 02/18/21 09:50 02/18/21 09:50 Lab Results 02/18/21 02/18/21 02/18/21 Range/Units 09:50 09:50 12:28 WBC 9.7 (4.5-11.0) K/mm3 RBC 4.52 (3.65-5.03) M/mm3 Hgb 13.7 (11.8-15.2) gm/dl Hct 40.6 (35.5-45.6) % MCV 90 (84-94) fl MCH 30 (28-32) pg MCHC 34 (32-34) % RDW 13.9 (13.2-15.2) % Plt Count 250 (140-440) K/mm3 Lymph % (Auto) 16.0 (13.4-35.0) % Hayes % (Auto) 11.8 H (0.0-7.3) % Eos % (Auto) 0.1 (0.0-4.3) % Baso % (Auto) 0.4 (0.0-1.8) % Lymph # (Auto) 1.5 (1.2-5.4) K/mm3 Hayes # (Auto) 1.1 H (0.0-0.8) K/mm3 Eos # (Auto) 0.0 (0.0-0.4) K/mm3 Baso # (Auto) 0.0 (0.0-0.1) K/mm3 Seg Neutrophils % 71.7 H (40.0-70.0) % Seg Neutrophils # 7.0 (1.8-7.7) K/mm3 Sodium 139 (137-145) mmol/L Potassium 4.2 (3.6-5.0) mmol/L Chloride 98.3 (98-107) mmol/L Carbon Dioxide 28 (22-30) mmol/L Anion Gap 17 mmol/L BUN 9 (9-20) mg/dL Creatinine 0.6 L (0.8-1.3) mg/dL Estimated GFR > 60 ml/min BUN/Creatinine Ratio 15 % Glucose 89 (75-100) mg/dL Calcium 10.3 H (8.4-10.2) mg/dL Total Bilirubin 0.30 (0.1-1.2) mg/dL AST 22 (5-40) units/L ALT 16 (7-56) units/L Alkaline Phosphatase 65 (35-129) units/L Troponin T < 0.010 (0.00-0.029) ng/mL Total Protein 8.0 (6.3-8.2) g/dL Albumin 4.9 (3.9-5) g/dL Albumin/Globulin Ratio 1.6 % Lipase 18 (13-60) units/L - EKG Data EKG shows normal: sinus rhythm, axis, intervals Rate: normal - EKG Data 02/18/21 12:29 LVH Normal early repolarization No STEMI No significant change from EKG on 11/10/2020 - Radiology Data Radiology results: report reviewed Ordering Physician: СВЕТЛАНА MALIK Date of Service: 02/18/21 Procedure(s): XR chest routine 2V Accession Number(s): [id number] cc: СВЕТЛАНА MALIK Fluoro Time In Minutes: CHEST 2 VIEWS INDICATION / CLINICAL INFORMATION: CP. COMPARISON: 11/09/2020 FINDINGS: SUPPORT DEVICES: None. HEART / MEDIASTINUM: No significant abnormality. LUNGS / PLEURA: No significant pulmonary or pleural abnormality. No pneumothorax. ADDITIONAL FINDINGS: No significant additional findings. IMPRESSION: 1. No acute findings. No interval change. Signer Name: Aiyana Yanez MD Signed: 02/18/2021 12:54 PM Workstation Name: [id number] Transcribed By: JR Dictated By: Aiyana Yanez MD Electronically Authenticated By: Aiyana Yanez MD Signed Date/Time: 02/18/211253 DD/ 53 TD/TT: - Medical Decision Making Patient is a 45-year-old male presents emergency room with complaints of upper abdominal discomfort that began 2 days ago. He states it is intermittent and it is worse after eating. He states it is typically worse after eating meat. He has associated nausea. He denies any vomiting, diarrhea, fever, urinary symptoms, hematochezia, melena, hematemesis. He denies any past medical history. He has an allergy to morphine. He states his only past abdominal surgical history is an appendectomy. Vitals are normal. No abdominal tenderness on exam, no guarding, no rebound, no rigidity, no masses, no peritoneal signs. Labs are stable. Symptoms could likely represent PUD versus GERD. It appears patient has been evaluated in the emergency department multiple times for the same symptoms.Upon discharge patient is stating that the pain radiates into his chest which has been going on for a few days, I advised patient that acid reflux can radiate into the chest through the esophagus. Patient states that he wants his chest checked out, order EKG troponin and x-ray if normal patient can be discharged home, he has no cardiac risk factors. Troponin is negative. EKG is stable from previous. Chest x-ray 1. No acute findings. No interval change. Discussed all results with patient and discussed the importance of outpatient follow-up. Advised patient Please take medication as prescribed. Increase your fluid intake. Please follow the diet for acid reflux/ulcers. Follow-up with a GI doctor. Follow-up with a primary care doctor. Return to emergency room immediately for any new or worsening symptoms. Critical care attestation.: If time is entered above; I have spent that time in minutes in the direct care of this critically ill patient, excluding procedure time. ED Disposition Clinical Impression: Nausea Abdominal pain Qualifiers: Abdominal location: upper abdomen, unspecified Qualified Code(s): R10.10 - Upper abdominal pain, unspecified Disposition: 01 HOME / SELF CARE / HOMELESS Is pt being admited?: No Does the pt Need Aspirin: No Condition: Stable Instructions: Peptic Ulcer, [id number], Food Choices for Gastroesophageal Reflux Disease, Adult Additional Instructions: Please take medication as prescribed. Increase your fluid intake. Please follow the diet for acid reflux/ulcers. Follow-up with a GI doctor. Follow-up with a primary care doctor. Return to emergency room immediately for any new or worsening symptoms. Prescriptions: Famotidine [Pepcid] 40 mg PO QHS #30 tablet Sucralfate [Carafate] 1 gm PO ACHS 7 Days #21 tablet Ondansetron [Zofran Odt] 4 mg PO Q8HR PRN #8 tab.rapdis PRN Reason: nausea/vomiting Referrals: [facility] [Provider Group] - 2-3 Days MARIANNA NOLAN MD [Staff Physician] - 2-3 Days [facility] [Provider Group] - 2-3 Days Time of Disposition: 11:51 Print Language: ZAMBIAN
[2021-02-18 11:15] LABS: Alanine Aminotransferase 16 units/L (7-56); Albumin 4.9 g/dL (3.9-5); Blood Urea Nitrogen 9 mg/dL (9-20); Calcium 10.3 mg/dL (8.4-10.2); Hemolysis Index 19
[2021-02-18 11:35] LABS: BUN/Creatinine Ratio 15
--- NOTE | 2021-02-18 12:59 | XRay Report ---
CHEST 2 VIEWS INDICATION / CLINICAL INFORMATION: CP. COMPARISON: 11/09/2020 FINDINGS: SUPPORT DEVICES: None. HEART / MEDIASTINUM: No significant abnormality. LUNGS / PLEURA: No significant pulmonary or pleural abnormality. No pneumothorax. ADDITIONAL FINDINGS: No significant additional findings. IMPRESSION: 1. No acute findings. No interval change. Signer Name: Aiyana Yanez MD Signed: 02/18/2021 12:54 PM Workstation Name: [id number]
--- NOTE | 2021-02-20 09:44 | Electrocardiograph Report ---
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
== END 2021-02-18 12:30 | disposition home or self-care (01) ==
LOC: ED 08:14
DX: R10.10 Upper abdominal pain, unspecified (principal); R11.0 Nausea; Z90.49 Acquired absence of other specified parts of digestive tract; Z88.5 Allergy status to narcotic agent; Z79.899 Other long term (current) drug therapy
CPT/HCPCS: 36415; 71046; 80053; 83690; 84484; 85025; 93005; 99283

== ENCOUNTER 2021-03-05 11:27 | Emergency (ER) | payer OTHER ==
[2021-03-05] MEDS ORDERED: ASPIRIN 81 MG TAB CHEW PO ONE (12:24)
[2021-03-05] MEDS ORDERED: NITROGLYCERIN 0.4 MG TAB SUBL SL PRN (12:24)
--- NOTE | 2021-03-05 12:34 | Emergency Department Report ---
ED Chest Pain HPI - General Chief Complaint: Chest Pain Stated Complaint: CHEST PRESSURE Time Seen by Provider: 03/05/21 12:23 Source: patient Mode of arrival: Ambulatory Limitations: No Limitations - History of Present Illness Initial Comments: Patient presents with chest pain. He describes it as a substernal and left- sided chest pain. This is pressure sensation. It is worse with movement. It improves with rest. There is no cough or congestion. He has no trauma. There has been no fevers or chills. Patient states that the pain is not pleuritic. He does not feel particularly short of breath. Pain started last night. It resolved with rest. It returned this morning. He later admits that he has been using cocaine and is embarrassed by the fact that he has cocaine in his system. He has never had heart disease. He has never had a heart attack. - Related Data Previous Rx's Medication Instructions Recorded Last Taken Type Omeprazole 40 mg PO DAILY #30 capsule. 04/01/19 Unknown Rx Hyoscyamine Subl [Levsin Sl 0.125 0.125 mg SL Q6HR PRN #20 tab 10/13/19 Unknown Rx TAB] Ondansetron (Nf) [Zofran TAB] 8 mg PO Q8HR PRN #20 tablet 10/13/19 Unknown Rx Lansoprazole [Prevacid] 15 mg PO BID #30 cap 08/20/20 Unknown Rx Famotidine [Pepcid] 20 mg PO BID #20 tablet 12/06/20 Unknown Rx Famotidine [Pepcid] 40 mg PO QHS #30 tablet 02/18/21 Unknown Rx Ondansetron [Zofran Odt] 4 mg PO Q8HR PRN #8 tab.rapdis 02/18/21 Unknown Rx Sucralfate [Carafate] 1 gm PO ACHS 7 Days #21 tablet 02/18/21 Unknown Rx Allergies Allergy/AdvReac Type Severity Reaction Status Date / Time morphine Allergy Unknown Verified 02/18/21 08:28 Heart Score - HEART Score History: Moderately suspicious EKG: Normal Age: 45-65 Risk factors: 1-2 risk factors Troponin: < normal limit HEART Score: 3 - EKG Read Time Time EKG Completed: 12:21 EKG Read Time: 12:21 ED Review of Systems ROS: Stated complaint: CHEST PRESSURE Other details as noted in HPI Comment: All other systems reviewed and negative Constitutional: denies: fever Eyes: denies: eye pain ENT: denies: throat pain Respiratory: denies: cough Cardiovascular: as per HPI Endocrine: denies: unexplained weight loss Gastrointestinal: denies: abdominal pain Genitourinary: denies: dysuria Musculoskeletal: denies: back pain Skin: denies: rash Neurological: denies: headache Hematological/Lymphatic: denies: easy bruising ED Past Medical Hx - Past Medical History Previous Medical History?: Yes Hx GERD: Yes - Surgical History Past Surgical History?: Yes Hx Appendectomy: Yes - Family History Family history: other ( No heart disease) - Social History Smoking Status: Never Smoker Substance Use Type: Alcohol, Cocaine ( recent use) - Medications Home Medications: Home Medications Medication Instructions Recorded Confirmed Last Taken Type Omeprazole 40 mg PO DAILY #30 capsule.dr 04/01/19 Unknown Rx Hyoscyamine Subl [Levsin Sl 0.125 0.125 mg SL Q6HR PRN #20 tab 10/13/19 Unknown Rx TAB] Ondansetron (Nf) [Zofran TAB] 8 mg PO Q8HR PRN #20 tablet 10/13/19 Unknown Rx Lansoprazole [Prevacid] 15 mg PO BID #30 cap 08/20/20 Unknown Rx Famotidine [Pepcid] 20 mg PO BID #20 tablet 12/06/20 Unknown Rx Famotidine [Pepcid] 40 mg PO QHS #30 tablet 02/18/21 Unknown Rx Ondansetron [Zofran Odt] 4 mg PO Q8HR PRN #8 tab.rapdis 02/18/21 Unknown Rx Sucralfate [Carafate] 1 gm PO ACHS 7 Days #21 tablet 02/18/21 Unknown Rx ED Physical Exam - General Limitations: No Limitations, Other ( pulse ox was noted and normal. Is not hypoxic.) General appearance: alert, in no apparent distress - Head Head exam: Present: atraumatic, normocephalic, normal inspection - Eye Eye exam: Present: normal appearance, EOMI. Absent: scleral icterus - ENT ENT exam: Present: normal exam, mucous membranes moist - Neck Neck exam: Present: normal inspection. Absent: meningismus - Respiratory Respiratory exam: Present: normal lung sounds bilaterally. Absent: respiratory distress - Cardiovascular Cardiovascular Exam: Present: regular rate, normal rhythm - GI/Abdominal GI/Abdominal exam: Present: soft. Absent: tenderness - Extremities Exam Extremities exam: Present: normal capillary refill. Absent: pedal edema, calf tenderness - Back Exam Back exam: Absent: CVA tenderness (R), CVA tenderness (L) - Neurological Exam Neurological exam: Present: alert, oriented X3, normal gait. Absent: motor sensory deficit - Psychiatric Psychiatric exam: Present: normal affect, normal mood - Skin Skin exam: Present: warm, dry ED Course Vital Signs 03/05/21 03/05/21 03/05/21 12:17 13:44 16:04 Temperature 98.5 F Pulse Rate 89 89 90 Respiratory 18 18 Rate Blood Pressure 145/91 145/91 Blood Pressure 120/84 [Right] O2 Sat by Pulse 98 97 Oximetry - Reevaluation(s) Reevaluation #1: 03/05/21 12:35 EKG have been noted. IV labs were ordered. Chest x-ray was ordered. Reevaluation #2: 03/05/21 14:10 Labs have been noted. Patient is resting. Repeat troponin has been ordered. CASIMIRO score - Casimiro Score Age > 65: (0) No Aspirin use within the Past 7 Days: (0) No 3 or more CAD Risk Factors: (0) No 2 or more Angina events in past 24 hrs: (0) No Known CAD with more than 50% Stenosis: (0) No ST Deviation Greater than 0.5mm: (0) No ED Medical Decision Making - Lab Data Result diagrams: 03/05/21 12:41 03/05/21 12:41 - EKG Data -: EKG Interpreted by [place] EKG shows normal: sinus rhythm, intervals, ST-T waves Rate: normal - EKG Data When compared to previous EKG there are: no significant change Interpretation: no acute changes 03/05/21 13:01 EKG shows normal sinus rhythm at 74. QRS is normal at 82. QT corrected is normal at 416. Patient does have LVH. There is no ST elevation suggestive of STEMI. There is no ST depression suggestive of ischemia. - Radiology Data Radiology results: report reviewed - Medical Decision Making Patient presented with chest pain in the setting of cocaine use. Troponin is negative x2. He does not have any other significant risk factor or symptoms that would suggest ACS. I do believe outpatient evaluation and risk stratification will be appropriate. There is certainly no radiographic evidence of pneumonia or pneumothorax. He does not have a pulse of that suggestive of aortic dissection. Pain is not pleuritic. He has no shortness of breath. There is no unilateral leg swelling or edema. Wells score is low. I do not believe this represents PE. He was treated symptomatically and referred for outpatient evaluation and follow-up. Critical Care Time: No Critical care attestation.: If time is entered above; I have spent that time in minutes in the direct care of this critically ill patient, excluding procedure time. ED Disposition Clinical Impression: Left-sided chest pain, Cocaine abuse Disposition: HOME / SELF CARE / HOMELESS Is pt being admited?: No Does the pt Need Aspirin: No Condition: Stable Instructions: Nonspecific Chest Pain, Adult Additional Instructions: Drink plenty water. Return for problems. Stop using cocaine. Follow-up with your regular physician for recheck and further management. Referrals: PRIMARY MD SONYA [Primary Care Provider] - 3-5 Days ERICA HOYOS MD [Staff Physician] - 3-5 Days
--- NOTE | 2021-03-05 12:58 | XRay Report ---
CHEST 2 VIEWS INDICATION / CLINICAL INFORMATION: Chest pain. COMPARISON: 02/18/21 FINDINGS: SUPPORT DEVICES: None. HEART / MEDIASTINUM: No significant abnormality. LUNGS / PLEURA: No significant pulmonary or pleural abnormality. No pneumothorax. ADDITIONAL FINDINGS: No significant additional findings. IMPRESSION: 1. No acute findings. No change. Signer Name: Joon Manriquez MD Signed: 03/05/2021 12:53 PM Workstation Name: [id number]
[2021-03-05 13:07] LABS: Hematocrit 42.6 % (35.5-45.6); Hemoglobin 14.5 gm/dl (11.8-15.2); Mean Corpuscular HGB Conc 34 % (32-34); Mean Corpuscular Volume 90 fl (84-94); Platelet Count 288 K/mm3 (140-440); Red Blood Count 4.77 M/mm3 (3.65-5.03); Red Cell Distribution Width 13.9 % (13.2-15.2)
[2021-03-05 13:15] LABS: Blood Urea Nitrogen 8 mg/dL (9-20); Calcium 10.2 mg/dL (8.4-10.2); Hemolysis Index 13
[2021-03-05 13:24] LABS: BUN/Creatinine Ratio 11
[2021-03-05 16:05] VITALS: BP 120/84
--- NOTE | 2021-03-06 10:50 | Electrocardiograph Report ---
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 Electronically Signed On 03-06-2021 10:49:25 EDT by Pa Thomas
== END 2021-03-05 16:05 | disposition home or self-care (01) ==
LOC: ED 11:27
DX: R07.89 Other chest pain (principal); F14.10 Cocaine abuse, uncomplicated; Z90.89 Acquired absence of other organs; F17.200 Nicotine dependence, unspecified, uncomplicated; F10.20 Alcohol dependence, uncomplicated
CPT/HCPCS: 36415; 71046; 80048; 84484; 85027; 93005; 99284

== ENCOUNTER 2021-03-31 08:40 | Emergency (ER) | payer OTHER ==
[2021-03-31 08:50] VITALS: BP 125/84
--- NOTE | 2021-03-31 09:54 | Emergency Department Report ---
HPI - General Chief Complaint: Abdominal Pain Time Seen by Provider: 03/31/21 09:37 - HPI HPI: 45-year-old -Citizen Of [place] male presents to the emergency department with a complaint of epigastric and left upper quadrant abdominal pain. Overall this has been more of a chronic issue but it has worsened over the past week. He denies any nausea, vomiting, diarrhea, constipation, fever, back pain. The patient has been here multiple times in the past for evaluation of abdominal pain and has been told in the past that it is related to GERD. The patient thinks that it may be related to medications that he is taking, specifically Tylenol 3, for treatment of the pain for which he says he will need surgery. No recent travel or sick contacts at home. His abdominal pain is sharp, 7 out of 10 in intensity. No known aggravating or alleviating factors. ED Past Medical Hx - Past Medical History Previous Medical History?: Yes Hx GERD: Yes - Surgical History Past Surgical History?: Yes Hx Appendectomy: Yes - Social History Smoking Status: Never Smoker Substance Use Type: Alcohol, Cocaine ( recent use) - Medications Home Medications: Home Medications Medication Instructions Recorded Confirmed Last Taken Type Omeprazole 40 mg PO DAILY #30 capsule. 04/01/19 Unknown Rx Hyoscyamine Subl [Levsin Sl 0.125 0.125 mg SL Q6HR PRN #20 tab 10/13/19 Unknown Rx TAB] Ondansetron (Nf) [Zofran TAB] 8 mg PO Q8HR PRN #20 tablet 10/13/19 Unknown Rx Lansoprazole [Prevacid] 15 mg PO BID #30 cap 08/20/20 Unknown Rx Famotidine [Pepcid] 20 mg PO BID #20 tablet 12/06/20 Unknown Rx Famotidine [Pepcid] 40 mg PO QHS #30 tablet 02/18/21 Unknown Rx Ondansetron [Zofran Odt] 4 mg PO Q8HR PRN #8 tab.rapdis 02/18/21 Unknown Rx Sucralfate [Carafate] 1 gm PO ACHS 7 Days #21 tablet 02/18/21 Unknown Rx ED Review of Systems ROS: Stated complaint: UPPER STOMACH PAIN Other details as noted in HPI Comment: All other systems reviewed and negative Constitutional: denies: chills, fever Eyes: denies: eye pain, vision change ENT: denies: ear pain, throat pain Respiratory: denies: cough, shortness of breath Cardiovascular: denies: chest pain, palpitations Gastrointestinal: abdominal pain. denies: nausea, vomiting, diarrhea, constipation Genitourinary: denies: dysuria, discharge Musculoskeletal: denies: back pain, arthralgia Skin: denies: rash, lesions Neurological: denies: headache, weakness Physical Exam - Physical Exam Vital Signs: Vital Signs 03/31/21 08:49 Temperature 98.4 F Pulse Rate 89 Respiratory 18 Rate Blood Pressure 125/84 O2 Sat by Pulse 98 Oximetry Physical Exam: GENERAL: The patient is well-developed well-nourished. HENT: Normocephalic. Atraumatic. Patient has moist mucous membranes. EYES: Extraocular motions are intact. NECK: Supple. Trachea is midline. CHEST/LUNGS: Clear to auscultation. There is no respiratory distress noted. HEART/CARDIOVASCULAR: Regular. There is no tachycardia. There is no murmur. ABDOMEN: Abdomen is soft. Epigastric and left upper quadrant tenderness to palpation. No guarding. Patient has normal bowel sounds. SKIN: Skin is warm and dry. NEURO: The patient is awake, alert, and oriented. The patient is cooperative. Normal speech. MUSCULOSKELETAL: There is no tenderness or deformity. ED Course Vital Signs 03/31/21 08:49 Temperature 98.4 F Pulse Rate 89 Respiratory 18 Rate Blood Pressure 125/84 O2 Sat by Pulse 98 Oximetry ED Medical Decision Making - Medical Decision Making This patient presented for what appeared to be acute on chronic upper abdominal pains. On examination there is reproducible epigastric and left upper quadrant abdominal tenderness to palpation. No guarding. The abdomen appears soft and nondistended. I had ordered a CBC, metabolic panel, lipase, urinalysis. I had ordered a GI cocktail for the patient given a history of GERD and his epigastric pains. However, shortly after my initial H&P, the patient eloped from the emergency department. Critical Care Time: No Critical care attestation.: If time is entered above; I have spent that time in minutes in the direct care of this critically ill patient, excluding procedure time. ED Disposition Clinical Impression: Abdominal pain Qualifiers: Abdominal location: unspecified location Qualified Code(s): R10.9 - Unspecified abdominal pain Disposition: 07 LEFT AWOL/ELOPED Is pt being admited?: No Time of Disposition: 15:16
[2021-03-31] MEDS ORDERED: ALUM-MAG HYDROXIDE-SIMETHICONE 200-200-20MG/5ML ORAL LIQD 30 ML PO ONE (09:58)
[2021-03-31] MEDS ORDERED: LIDOCAINE VISCOUS 2% 15 ML ORAL LIQD PO ONE (09:58)
== END 2021-03-31 16:56 | disposition left against medical advice (07) ==
LOC: ED 08:40
DX: R10.13 Epigastric pain (principal); R10.12 Left upper quadrant pain; K21.9 Gastro-esophageal reflux disease without esophagitis; Z90.89 Acquired absence of other organs
CPT/HCPCS: 99281

== ENCOUNTER 2021-04-03 17:28 | Emergency (ER) | payer OTHER ==
[2021-04-03 17:54] VITALS: BP 129/82
[2021-04-03] MEDS ORDERED: ONDANSETRON 4 MG ODT TAB PO ONE (18:26)
[2021-04-03] MEDS ORDERED: FAMOTIDINE 20 MG TAB PO ONE (18:26)
--- NOTE | 2021-04-03 18:26 | Emergency Department Report ---
ED Abdominal Pain HPI - General Chief Complaint: Abdominal Pain Stated Complaint: /STOMACH PAIN PUI?: No Time Seen by Provider: 04/03/21 18:18 Source: patient, old records reviewed Mode of arrival: Ambulatory Limitations: No Limitations - History of Present Illness Initial Comments: 45 year old male with pmhx of substance abuse and chronic abd pain presents to ED with complaints of left upper abdominal pain. Patient states that this is the same chronic abdominal pain that has been having for about 2 years. He states that he saw a GI specialist about 2 years ago when he was living in [place] and had an endoscopy and he states that did not show anything. Has never had a colonoscopy. He has also been here several times for the same abdominal pain. He states that he has also had CT scans for evaluation of his abdominal pain without any clear etiology. Patient states that he has been having intermittent episodes of nausea and vomiting since he has been having abdominal pain for several years. He states that he has not been able to eat because he feels like when he eats it worsens the pain. He states that he feels like all he can do is drink. He states that he has not been having regular bowel movements, he sometimes get constipated, but he denies any diarrhea, melena or hematochezia. He does admit that he drinks alcohol daily. He drinks at least 2 glasses of liquor per day. He states that he did stop 2 weeks ago, but he got "sick" and restarted. He also admits that he last used cocaine yesterday. He denies any fever or chills or any additional symptoms at this time. MD Complaint: abdominal pain -: year(s) - Related Data Previous Rx's Medication Instructions Recorded Last Taken Type Omeprazole 40 mg PO DAILY #30 capsule. 04/01/19 Unknown Rx Ondansetron (Nf) [Zofran TAB] 8 mg PO Q8HR PRN #20 tablet 10/13/19 Unknown Rx Lansoprazole [Prevacid] 15 mg PO BID #30 cap 08/20/20 Unknown Rx Famotidine [Pepcid] 40 mg PO QHS #30 tablet 02/18/21 Unknown Rx Famotidine [Pepcid] 20 mg PO BID #20 tablet 04/03/21 Unknown Rx Hyoscyamine Subl [Levsin Sl 0.125 0.125 mg SL Q6HR PRN #20 tab 04/03/21 Unknown Rx TAB] Ondansetron [Zofran ODT TAB] 4 mg PO Q8HR PRN #8 tab.rapdis 04/03/21 Unknown Rx Sucralfate [Carafate] 1 gm PO ACHS 7 Days #21 tablet 04/03/21 Unknown Rx Allergies Allergy/AdvReac Type Severity Reaction Status Date / Time morphine Allergy Unknown Verified 02/18/21 08:28 ED Review of Systems ROS: Stated complaint: HEART FAST/LOW/STOMACH PAIN Other details as noted in HPI Comment: All other systems reviewed and negative Constitutional: denies: chills, fever Eyes: denies: eye pain, eye discharge, vision change ENT: denies: ear pain, throat pain Respiratory: denies: cough, shortness of breath, SOB with exertion, SOB at rest, wheezing Cardiovascular: denies: chest pain, palpitations, dyspnea on exertion, orthopnea, edema, syncope, paroxysmal nocturnal dyspnea Gastrointestinal: abdominal pain, nausea, vomiting, constipation Genitourinary: denies: urgency, dysuria, frequency, hematuria, discharge, testicular pain, testicular mass Musculoskeletal: denies: back pain, joint swelling, arthralgia Skin: denies: rash, lesions, change in color, change in hair/nails, pruritus Neurological: denies: headache, weakness, numbness, paresthesias, confusion, abnormal gait, vertigo Psychiatric: denies: anxiety, depression, auditory hallucinations, visual hallucinations, homicidal thoughts, suicidal thoughts Hematological/Lymphatic: denies: easy bleeding, easy bruising, swollen glands ED Past Medical Hx - Past Medical History Previous Medical History?: Yes Hx GERD: Yes - Surgical History Past Surgical History?: Yes Hx Appendectomy: Yes - Social History Smoking Status: Never Smoker Substance Use Type: Alcohol, Cocaine ( recent use) - Medications Home Medications: Home Medications Medication Instructions Recorded Confirmed Last Taken Type Omeprazole 40 mg PO DAILY #30 jose. 04/01/19 Unknown Rx Ondansetron (Nf) [Zofran TAB] 8 mg PO Q8HR PRN #20 tablet 10/13/19 Unknown Rx Lansoprazole [Prevacid] 15 mg PO BID #30 cap 08/20/20 Unknown Rx Famotidine [Pepcid] 40 mg PO QHS #30 tablet 02/18/21 Unknown Rx Famotidine [Pepcid] 20 mg PO BID #20 tablet 04/03/21 Unknown Rx Hyoscyamine Subl [Levsin Sl 0.125 0.125 mg SL Q6HR PRN #20 tab 04/03/21 Unknown Rx TAB] Ondansetron [Zofran ODT TAB] 4 mg PO Q8HR PRN #8 tab.rapdis 04/03/21 Unknown Rx Sucralfate [Carafate] 1 gm PO ACHS 7 Days #21 tablet 04/03/21 Unknown Rx ED Physical Exam - General Limitations: No Limitations General appearance: alert, in no apparent distress - Head Head exam: Present: atraumatic, normocephalic, normal inspection - Eye Eye exam: Present: normal appearance, PERRL, EOMI Pupils: Present: normal accommodation - Neck Neck exam: Present: normal inspection, full ROM - Respiratory Respiratory exam: Present: normal lung sounds bilaterally. Absent: respiratory distress, wheezes, rales, rhonchi, stridor - Cardiovascular Cardiovascular Exam: Present: regular rate, normal rhythm, normal heart sounds - GI/Abdominal GI/Abdominal exam: Present: soft. Absent: distended, tenderness, guarding, rebound - Neurological Exam Neurological exam: Present: alert, oriented X3, CN II-XII intact, normal gait - Psychiatric Psychiatric exam: Present: normal affect, normal mood - Skin Skin exam: Present: intact ED Course Vital Signs 04/03/21 17:53 Temperature 98.4 F Pulse Rate 91 H Respiratory 16 Rate Blood Pressure 129/82 [Right] O2 Sat by Pulse 98 Oximetry ED Medical Decision Making - Lab Data Result diagrams: 04/03/21 18:36 04/03/21 18:36 - Radiology Data Radiology results: report reviewed - Medical Decision Making 45 year old male with pmhx of substance abuse and chronic abd pain presents to ED with complaints of left upper abdominal pain. Patient states that this is the same chronic abdominal pain that has been having for about 2 years. He states that he saw a GI specialist about 2 years ago when he was living in [facility] and had an endoscopy and he states that did not show anything. Has never had a colonoscopy. He has also been here several times for the same abdominal pain. He states that he has also had CT scans for evaluation of his abdominal pain without any clear etiology. Patient states that he has been having intermittent episodes of nausea and vomiting since he has been having abdominal pain for several years. He states that he has not been able to eat because he feels like when he eats it worsens the pain. He states that he feels like all he can do is drink. He states that he has not been having regular bowel movements, he sometimes get constipated, but he denies any diarrhea, melena or hematochezia. He does admit that he drinks alcohol daily. He drinks at least 2 glasses of liquor per day. He states that he did stop 2 weeks ago, but he got "sick" and restarted. He also admits that he last used cocaine yesterday. He denies any fever or chills or any additional symptoms at this time. 2010: All labs reviewed--CBC shows mild leukocytosis but otherwise unremarkable. CMP normal. Lipase is normal. Patient vital signs are stable. Patient abdominal exam is benign. He is not toxic or ill-appearing. He is mentally stable and capable of making his own medical decisions. At this time I do not see an indication for any additional testing, admission or emergent specialist consult. Patient requested outpatient substance abuse to follow-up with. Patient instructed that he should follow-up with GI specialist, but also needs to try to stop drinking and if he is unable to do it on his own follow-up with the substance abuse areas. Patient was stable at time of discharge. Critical care attestation.: If time is entered above; I have spent that time in minutes in the direct care of this critically ill patient, excluding procedure time. ED Disposition Clinical Impression: Chronic abdominal pain, Substance abuse Disposition: 01 HOME / SELF CARE / HOMELESS Is pt being admited?: No Does the pt Need Aspirin: No Condition: Stable Instructions: Substance Use Disorder, Abdominal Pain, Adult, [id number], Chronic Pain, Adult Additional Instructions: I recommend taking the pepcid, bentyl, carafate and zofran as prescribed. I recommend that you follow up with one of the resources on the sheet of paper given to you for outpatient substance abuse treatment. It is important that you follow up with GI specialist for further evaluation. Return to ED if worse. Prescriptions: Sucralfate [Carafate] 1 gm PO ACHS 7 Days #21 tablet Hyoscyamine Subl [Levsin Sl 0.125 TAB] 0.125 mg SL Q6HR PRN #20 tab PRN Reason: ABDOMINAL PAIN Famotidine [Pepcid] 20 mg PO BID #20 tablet Ondansetron [Zofran ODT TAB] 4 mg PO Q8HR PRN #8 tab.rapdis PRN Reason: nausea/vomiting Referrals: PRIMARY CARE,MD [Primary Care Provider] - 3-5 Days Time of Disposition: 19:49 Print Language: MONTENEGRIN
[2021-04-03] MEDS: HYDROcodone/ACETAMINOPHEN 10-325MG TAB PO ONE (18:42)
[2021-04-03 19:03] LABS: Basophils % (Auto) 0.4 % (0.0-1.8); Eosinophils # (Auto) 0.1 K/mm3 (0.0-0.4); Eosinophils % (Auto) 0.5 % (0.0-4.3); Hematocrit 43.4 % (35.5-45.6); Lymphocytes # (Auto) 2.4 K/mm3 (1.2-5.4); Lymphocytes % (Auto) 18.3 % (13.4-35.0); Mean Corpuscular HGB Conc 32 % (32-34); Mean Corpuscular Volume 90 fl (84-94); Monocytes # (Auto) 1.3 K/mm3 (0.0-0.8); Monocytes % (Auto) 10.2 % (0.0-7.3); Platelet Count 285 K/mm3 (140-440); Red Blood Count 4.84 M/mm3 (3.65-5.03); Red Cell Distribution Width 14.1 % (13.2-15.2)
[2021-04-03 19:28] LABS: Alanine Aminotransferase 17 units/L (7-56); Albumin 4.8 g/dL (3.9-5); BUN/Creatinine Ratio 9; Blood Urea Nitrogen 7 mg/dL (9-20); Hemolysis Index 8
== END 2021-04-03 20:15 | disposition home or self-care (01) ==
LOC: ED 17:28
DX: R10.12 Left upper quadrant pain (principal); G89.29 Other chronic pain; R11.2 Nausea with vomiting, unspecified; K21.9 Gastro-esophageal reflux disease without esophagitis; F14.90 Cocaine use, unspecified, uncomplicated; Z90.49 Acquired absence of other specified parts of digestive tract; Z72.89 Other problems related to lifestyle; Z88.5 Allergy status to narcotic agent; Z79.899 Other long term (current) drug therapy
CPT/HCPCS: 36415; 80053; 83690; 85025; 99283; Q0162

== ENCOUNTER 2021-05-05 04:16 | Emergency (ER) | payer OTHER ==
[2021-05-05 04:24] VITALS: BP 121/82
[2021-05-05 04:56] LABS: Mucus,Urine FEW /HPF
[2021-05-05 04:57] LABS: Bilirubin,Urine NEG (Negative); Blood,Urine SM (Negative); Color,Urine Yellow (Yellow); Protein,Urine <15 mg/dL mg/dL (Negative); Urobilinogen,Urine < 2.0 mg/dL (<2.0)
[2021-05-05] MEDS ORDERED: DICYCLOMINE 20 MG/2 ML INJ IM ONE (04:57)
[2021-05-05] MEDS ORDERED: FAMOTIDINE 20 MG TAB PO ONE (04:57)
[2021-05-05] MEDS ORDERED: LIDOCAINE VISCOUS 2% 15 ML ORAL LIQD PO ONE (04:57)
[2021-05-05] MEDS ORDERED: ONDANSETRON 4 MG ODT TAB PO ONE (04:57)
[2021-05-05] MEDS ORDERED: ALUM-MAG HYDROXIDE-SIMETHICONE 200-200-20MG/5ML ORAL LIQD 30 ML PO ONE (04:57)
[2021-05-05 05:05] LABS: Hematocrit 39.7 % (35.5-45.6); Hemoglobin 12.8 gm/dl (11.8-15.2); Mean Corpuscular HGB Conc 32 % (32-34); Mean Corpuscular Volume 90 fl (84-94); Platelet Count 273 K/mm3 (140-440); Red Blood Count 4.43 M/mm3 (3.65-5.03); Red Cell Distribution Width 14.1 % (13.2-15.2)
--- NOTE | 2021-05-05 05:05 | Emergency Department Report ---
ED Abdominal Pain HPI - General Chief Complaint: Abdominal Pain Stated Complaint: ABDOMINAL PAIN Source: patient Mode of arrival: Ambulatory Limitations: No Limitations - History of Present Illness Initial Comments: Patient is a 45-year-old -[place] male with a history of chronic GERD characterized by chronic recurrent epigastric pain radiates to the left upper quadrant and substernal area, and who presents to the ED with complaint of acute exacerbation of his chronic epigastric pain for the last 5 hours after drinking alcohol at home. Patient states that the pain has been persistent, with a burning sensation and that he also experiences persistent burping with this pain. Patient denies nausea, vomiting, chest pain, shortness of breath, diarrhea, dysuria, urinary frequency and urgency, diaphoresis, change in vision, sore throat, neck pain, headache for hematemesis and hematochezia. MD Complaint: abdominal pain (Epigastric pain that radiates to the left upper quadrant and substernal chest wall with a burning sensation) -: Sudden, hour(s) (6) Location: LUQ, epigastric Radiation: LUQ, epigastric Migration to: no migration Severity scale (0 -10): 7 Quality: aching, sharp, burning Consistency: constant Improves With: nothing Worsens With: eating Context: other (Chronic epigastric pain due to uncontrolled GERD) Associated Symptoms: denies other symptoms. denies: nausea, vomiting, diarrhea, fever, chills, constipation, hematemesis, hematochezia, melena, anorexia, syncope Treatments Prior to Arrival: NSAIDs - Related Data Previous Rx's Medication Instructions Recorded Last Taken Type Omeprazole 40 mg PO DAILY #30 capsule. 04/01/19 Unknown Rx Ondansetron (Nf) [Zofran TAB] 8 mg PO Q8HR PRN #20 tablet 10/13/19 Unknown Rx Lansoprazole [Prevacid] 15 mg PO BID #30 cap 08/20/20 Unknown Rx Famotidine [Pepcid] 40 mg PO QHS #30 tablet 02/18/21 Unknown Rx Famotidine [Pepcid] 20 mg PO BID #20 tablet 04/03/21 Unknown Rx Hyoscyamine Subl [Levsin Sl 0.125 0.125 mg SL Q6HR PRN #20 tab 04/03/21 Unknown Rx TAB] Ondansetron [Zofran ODT TAB] 4 mg PO Q8HR PRN #8 tab.rapdis 04/03/21 Unknown Rx Sucralfate [Carafate] 1 gm PO ACHS 7 Days #21 tablet 04/03/21 Unknown Rx Dicyclomine [Bentyl] 20 mg PO Q6H PRN #30 tablet 05/05/21 Unknown Rx Famotidine [Pepcid] 20 mg PO BID #60 tablet 05/05/21 Unknown Rx Ondansetron [Zofran Odt] 4 mg PO Q6HR PRN #15 tab.rapdis 05/05/21 Unknown Rx Allergies Allergy/AdvReac Type Severity Reaction Status Date / Time morphine Allergy Unknown Verified 02/18/21 08:28 ED Review of Systems ROS: Stated complaint: ABDOMINAL PAIN Other details as noted in HPI Constitutional: denies: chills, fever Eyes: denies: eye pain, eye discharge, vision change ENT: denies: ear pain, throat pain Respiratory: denies: cough, shortness of breath, wheezing Cardiovascular: denies: chest pain, palpitations Endocrine: no symptoms reported Gastrointestinal: abdominal pain (Epigastric pain). denies: nausea, vomiting, diarrhea, hematemesis, hematochezia Genitourinary: denies: urgency, dysuria Musculoskeletal: denies: back pain, joint swelling, arthralgia Skin: denies: rash, lesions Neurological: denies: headache, weakness, paresthesias Psychiatric: denies: anxiety, depression Hematological/Lymphatic: denies: easy bleeding, easy bruising ED Past Medical Hx - Past Medical History Previous Medical History?: Yes Hx GERD: Yes - Surgical History Past Surgical History?: Yes Hx Appendectomy: Yes - Social History Smoking Status: Never Smoker Substance Use Type: Alcohol - Medications Home Medications: Home Medications Medication Instructions Recorded Confirmed Last Taken Type Omeprazole 40 mg PO DAILY #30 capsule. 04/01/19 Unknown Rx Ondansetron (Nf) [Zofran TAB] 8 mg PO Q8HR PRN #20 tablet 10/13/19 Unknown Rx Lansoprazole [Prevacid] 15 mg PO BID #30 cap 08/20/20 Unknown Rx Famotidine [Pepcid] 40 mg PO QHS #30 tablet 02/18/21 Unknown Rx Famotidine [Pepcid] 20 mg PO BID #20 tablet 04/03/21 Unknown Rx Hyoscyamine Subl [Levsin Sl 0.125 0.125 mg SL Q6HR PRN #20 tab 04/03/21 Unknown Rx TAB] Ondansetron [Zofran ODT TAB] 4 mg PO Q8HR PRN #8 tab.rapdis 04/03/21 Unknown Rx Sucralfate [Carafate] 1 gm PO ACHS 7 Days #21 tablet 04/03/21 Unknown Rx Dicyclomine [Bentyl] 20 mg PO Q6H PRN #30 tablet 05/05/21 Unknown Rx Famotidine [Pepcid] 20 mg PO BID #60 tablet 05/05/21 Unknown Rx Ondansetron [Zofran Odt] 4 mg PO Q6HR PRN #15 tab.rapdis 05/05/21 Unknown Rx ED Physical Exam - General Limitations: No Limitations General appearance: alert, in no apparent distress - Head Head exam: Present: atraumatic, normocephalic, normal inspection - Eye Eye exam: Present: normal appearance, PERRL, EOMI Pupils: Present: normal accommodation - ENT ENT exam: Present: normal exam, normal orophraynx, mucous membranes moist, TM's normal bilaterally, normal external ear exam - Neck Neck exam: Present: normal inspection, full ROM - Respiratory Respiratory exam: Present: normal lung sounds bilaterally. Absent: respiratory distress, wheezes, rales, rhonchi, chest wall tenderness, accessory muscle use, decreased breath sounds, prolonged expiratory - Cardiovascular Cardiovascular Exam: Present: regular rate, normal rhythm, normal heart sounds. Absent: systolic murmur, diastolic murmur, rubs, gallop - GI/Abdominal GI/Abdominal exam: Present: soft, tenderness (Palpable mild epigastric tenderness), normal bowel sounds. Absent: guarding, rebound, hyperactive bowel sounds, hypoactive bowel sounds, organomegaly - Extremities Exam Extremities exam: Present: normal inspection, full ROM, normal capillary refill - Back Exam Back exam: Present: normal inspection, full ROM. Absent: tenderness, CVA tenderness (R), CVA tenderness (L), muscle spasm - Neurological Exam Neurological exam: Present: alert, oriented X3, CN II-XII intact, normal gait, reflexes normal - Psychiatric Psychiatric exam: Present: normal affect, normal mood - Skin Skin exam: Present: warm, dry, intact, normal color. Absent: rash ED Course Vital Signs 05/05/21 04:20 Temperature 98.2 F Pulse Rate 87 Respiratory 16 Rate Blood Pressure 121/82 O2 Sat by Pulse 97 Oximetry ED Medical Decision Making - Lab Data Result diagrams: 05/05/21 04:33 05/05/21 04:33 - Medical Decision Making This is a 45-year-old -[place] male with a history of chronic GERD characterized by chronic recurrent epigastric pain radiates to the left upper quadrant and substernal area, and who presents to the ED with complaint of acute exacerbation of his chronic epigastric pain for the last 5 hours after drinking alcohol at home. Patient states that the pain has been persistent, with a burning sensation and that he also experiences persistent burping with this pain. The patient has been treated for the same condition in this ED several times and patient appears to be noncompliant with his medications stating that he usually just takes Pepto-Bismol whenever he has pain instead of taking his usual Nexium 40 mg p.o. x1 daily. Patient states that he has previously been evaluated by GI physician who did endoscopy and that all test results were unremarkable. In the ED, patient is alert and oriented x3 and is not in any distress with normal vital signs. Patient was treated for pain with Bentyl 20 mg to muscular injection, also given antacids Pepcid 40 mg p.o. x1 as well as GI cocktail and antiemetics Zofran. Lab test results were reviewed and are all nonactionable. On reevaluation, patient felt better and was discharged home on medications and advised to follow-up with his primary care physician in 5 to 7 days for reevaluation. Patient was advised return to the ED immediately if symptoms get worse. - Differential Diagnosis GERD; gastritis; gastric ulcers; duodenal ulcer Critical care attestation.: If time is entered above; I have spent that time in minutes in the direct care of this critically ill patient, excluding procedure time. ED Disposition Clinical Impression: Abdominal pain, acute, epigastric GERD (gastroesophageal reflux disease) Qualifiers: Esophagitis presence: esophagitis presence not specified Qualified Code(s): K21.9 - Gastro-esophageal reflux disease without esophagitis Disposition: HOME / SELF CARE / HOMELESS Is pt being admited?: No Does the pt Need Aspirin: No Condition: Stable Instructions: Abdominal Pain, Adult, [id number], Gastroesophageal Reflux Disease, Adult, [id number] Additional Instructions: All lab test results were reviewed and are all nonactionable. Therefore take medications with food, drink plenty of fluids and follow-up with your primary care physician in 5 to 7 days for reevaluation. Return to the ED immediately if symptoms get worse. Ensure that you abstain from alcohol consumption because this will worsen your acid reflux. Prescriptions: Dicyclomine [Bentyl] 20 mg PO Q6H PRN #30 tablet PRN Reason: Abdominal pain Famotidine [Pepcid] 20 mg PO BID #60 tablet Ondansetron [Zofran Odt] 4 mg PO Q6HR PRN #15 tab.rapdis PRN Reason: Nausea Referrals: [facility] [Provider Group] - 7-10 days Time of Disposition: 05:33 Print Language: [id number]
[2021-05-05 05:29] LABS: Alanine Aminotransferase 14 units/L (7-56); Albumin 4.3 g/dL (3.9-5); Blood Urea Nitrogen 13 mg/dL (9-20); Calcium 9.3 mg/dL (8.4-10.2); Hemolysis Index 7
[2021-05-05 05:44] LABS: BUN/Creatinine Ratio 19
[2021-05-05 06:07] LABS: Total Cells Counted 100
[2021-05-05 06:08] LABS: Platelet Estimate Consistent w Auto; RBC Morphology Normal
== END 2021-05-05 05:51 | disposition home or self-care (01) ==
LOC: ED 04:16
DX: R10.13 Epigastric pain (principal); K21.9 Gastro-esophageal reflux disease without esophagitis; F10.20 Alcohol dependence, uncomplicated
CPT/HCPCS: 36415; 80053; 81001; 83690; 85007; 85025; 96372; 99283; J0500; J3490; Q0162

== ENCOUNTER 2021-05-12 19:28 | Emergency (ER) | payer OTHER ==
[2021-05-12] MEDS ORDERED: ALUM-MAG HYDROXIDE-SIMETHICONE 200-200-20MG/5ML ORAL LIQD 30 ML PO ONE (21:49)
[2021-05-12] MEDS ORDERED: LIDOCAINE VISCOUS 2% 15 ML ORAL LIQD PO ONE (21:49)
--- NOTE | 2021-05-12 21:55 | Emergency Department Report ---
ED Abdominal Pain HPI - General Chief Complaint: Chest Pain Stated Complaint: CHEST PAIN PUI?: No Time Seen by Provider: 05/12/21 21:15 Source: patient Mode of arrival: Ambulatory Limitations: No Limitations - History of Present Illness Initial Comments: Patient is a 45-year-old male that presents emergency room with complaints of epigastric pain and chest pain. Patient states his chest pain started at 6 PM. Patient states the chest pain started after drinking wine. Patient states the first times have a drink this wine. Patient states his pain started in the epigastric region radiated up to his chest. Patient states that he then took a Pepcid while waiting in the waiting room and began to burp. Patient states that the Pepcid and the burping is helping. Patient states he eats spicy foods and fried foods frequently. Patient denies fever and chills. Patient denies shortness of breath. Patient denies nausea and vomiting. Patient denies diaphoresis. Patient states that he had epigastric pain and acid reflux approximately 2 months ago. Patient states he is not take any medications regularly for reflux. Patient denies melena. Patient denies blood in his stool. Patient denies recent travel. Patient denies recent international travel. Patient denies exposure to the novel coronavirus. Patient denies sick contacts. Patient denies fever and chills. Patient denies cough. Patient denies diarrhea. Patient denies coming in contact with anybody with symptoms of the novel coronavirus. Patient denies past medical history. Patient denies smoking. Patient denies allergy. Patient denies surgical history. Patient states he is not had the COVID-19 vaccine. MD Complaint: abdominal pain -: Sudden Location: epigastric Radiation: chest Migration to: no migration Severity: moderate Severity scale (0 -10): 4 Quality: burning Consistency: intermittent Improves With: medication (pepcid), rest Worsens With: eating Associated Symptoms: denies: nausea, vomiting, diarrhea, fever, chills, constipation, dysuria, hematemesis, hematochezia, melena, hematuria, syncope Treatments Prior to Arrival: antacids - Related Data Previous Rx's Medication Instructions Recorded Last Taken Type Ondansetron (Nf) [Zofran TAB] 8 mg PO Q8HR PRN #20 tablet 10/13/19 Unknown Rx Lansoprazole [Prevacid] 15 mg PO BID #30 cap 08/20/20 Unknown Rx Famotidine [Pepcid] 40 mg PO QHS #30 tablet 02/18/21 Unknown Rx Famotidine [Pepcid] 20 mg PO BID #20 tablet 04/03/21 Unknown Rx Hyoscyamine Subl [Levsin Sl 0.125 0.125 mg SL Q6HR PRN #20 tab 04/03/21 Unknown Rx TAB] Ondansetron [Zofran ODT TAB] 4 mg PO Q8HR PRN #8 tab.rapdis 04/03/21 Unknown Rx Sucralfate [Carafate] 1 gm PO ACHS 7 Days #21 tablet 04/03/21 Unknown Rx Dicyclomine [Bentyl] 20 mg PO Q6H PRN #30 tablet 05/05/21 Unknown Rx Famotidine [Pepcid] 20 mg PO BID #60 tablet 05/05/21 Unknown Rx Ondansetron [Zofran Odt] 4 mg PO Q6HR PRN #15 tab.rapdis 05/05/21 Unknown Rx Omeprazole 40 mg PO DAILY #30 capsule. 05/12/21 Unknown Rx Allergies Allergy/AdvReac Type Severity Reaction Status Date / Time morphine Allergy Unknown Verified 02/18/21 08:28 ED Review of Systems ROS: Stated complaint: CHEST PAIN Other details as noted in HPI Constitutional: denies: chills, fever Eyes: denies: eye pain, eye discharge, vision change ENT: denies: ear pain, throat pain Respiratory: denies: cough, shortness of breath, SOB with exertion, SOB at rest, wheezing Cardiovascular: as per HPI, chest pain. denies: palpitations Endocrine: no symptoms reported Gastrointestinal: as per HPI, abdominal pain. denies: nausea, diarrhea Genitourinary: denies: urgency, dysuria Musculoskeletal: denies: back pain, joint swelling, arthralgia Skin: denies: rash, lesions Neurological: denies: headache, weakness, paresthesias Psychiatric: denies: anxiety, depression Hematological/Lymphatic: denies: easy bleeding, easy bruising ED Past Medical Hx - Past Medical History Previous Medical History?: Yes Hx GERD: Yes - Surgical History Past Surgical History?: Yes Hx Appendectomy: Yes - Family History Family history: no significant - Social History Smoking Status: Never Smoker Substance Use Type: Alcohol - Medications Home Medications: Home Medications Medication Instructions Recorded Confirmed Last Taken Type Ondansetron (Nf) [Zofran TAB] 8 mg PO Q8HR PRN #20 tablet 10/13/19 Unknown Rx Lansoprazole [Prevacid] 15 mg PO BID #30 cap 08/20/20 Unknown Rx Famotidine [Pepcid] 40 mg PO QHS #30 tablet 02/18/21 Unknown Rx Famotidine [Pepcid] 20 mg PO BID #20 tablet 04/03/21 Unknown Rx Hyoscyamine Subl [Levsin Sl 0.125 0.125 mg SL Q6HR PRN #20 tab 04/03/21 Unknown Rx TAB] Ondansetron [Zofran ODT TAB] 4 mg PO Q8HR PRN #8 tab.rapdis 04/03/21 Unknown Rx Sucralfate [Carafate] 1 gm PO ACHS 7 Days #21 tablet 04/03/21 Unknown Rx Dicyclomine [Bentyl] 20 mg PO Q6H PRN #30 tablet 05/05/21 Unknown Rx Famotidine [Pepcid] 20 mg PO BID #60 tablet 05/05/21 Unknown Rx Ondansetron [Zofran Odt] 4 mg PO Q6HR PRN #15 tab.rapdis 05/05/21 Unknown Rx Omeprazole 40 mg PO DAILY #30 capsule. 05/12/21 Unknown Rx ED Physical Exam - General Limitations: No Limitations General appearance: alert, in no apparent distress - Head Head exam: Present: atraumatic, normocephalic - Eye Eye exam: Present: normal appearance - ENT ENT exam: Present: mucous membranes moist - Neck Neck exam: Present: normal inspection - Respiratory Respiratory exam: Present: normal lung sounds bilaterally, chest wall tenderness (Palpation of the sternal region reproduces symptoms.). Absent: respiratory distress - Cardiovascular Cardiovascular Exam: Present: regular rate, normal rhythm. Absent: systolic murmur, diastolic murmur, rubs, gallop - GI/Abdominal GI/Abdominal exam: Present: soft, tenderness (Epigastric tenderness to palpation.), normal bowel sounds - Rectal Rectal exam: Present: deferred - Extremities Exam Extremities exam: Present: normal inspection - Back Exam Back exam: Present: normal inspection - Neurological Exam Neurological exam: Present: alert, oriented X3 - Psychiatric Psychiatric exam: Present: normal affect, normal mood - Skin Skin exam: Present: warm, dry, intact, normal color. Absent: rash ED Course Vital Signs 05/12/21 19:56 Temperature 97.9 F Pulse Rate 78 Respiratory 16 Rate Blood Pressure 122/82 O2 Sat by Pulse 98 Oximetry - Reevaluation(s) Reevaluation #1: Patient states his pain is dramatically improved. Patient states his chest pain has resolved. Patient states he only has epigastric pain. I discussed all results and clinical findings with patient. I discussed plan of care with patient. Patient agrees with plan of care. Patient is stable for discharge. Patient will be discharged home. Patient given discharge inst ructions. Patient voiced understanding of discharge instructions. 05/12/21 22:55 ED Medical Decision Making - EKG Data -: EKG Interpreted by Me EKG shows normal: sinus rhythm, axis, intervals, QRS complexes, ST-T waves Rate: normal - Medical Decision Making Patient is a 45-year-old male who presents emergency room for the complaints of epigastric pain and chest pain. Patient's clinical findings are consistent with acid reflux, gastritis secondary to acute alcohol use. Patient's exam reveals epigastric tenderness palpation. Patient is frequently burping during exam. Patient stated that he took a Pepcid while waiting in the waiting room and began to burp and station states that his pain was improving. Patient states the epigastric pain rating to his chest after drinking wine. Patient states he has a history of GERD. Patient states he is not taking anything regularly for GERD. Patient had an EKG done which showed a normal sinus rhythm with findings of possible left ventricular hypertrophy. I personally reviewed the EKG. Patient given a GI cocktail and his symptoms dramatically improved. Patient not require any further emergency medical service. Patient not require inpatient services. Patient stable for discharge. Patient discharged home. Patient will need to follow-up with his primary care and GI. I discussed all results and clinical findings with patient. I discussed plan of care with patient. Patient agrees with plan of care. Patient is stable for discharge. Patient will be discharged home. Patient given discharge instructions. Patient voiced understanding of discharge instructions. - Differential Diagnosis GERD, reflux, gastritis, alcoholic gastritis, Critical care attestation.: If time is entered above; I have spent that time in minutes in the direct care of this critically ill patient, excluding procedure time. ED Disposition Clinical Impression: Abdominal pain, acute, epigastric Chest pain Qualifiers: Chest pain type: unspecified Qualified Code(s): R07.9 - Chest pain, unspecified GERD (gastroesophageal reflux disease) Qualifiers: Esophagitis presence: with esophagitis Esophagitis bleeding: without hemorrhage Qualified Code(s): K21.00 - Gastro-esophageal reflux disease with esophagitis, without bleeding Disposition: HOME / SELF CARE / HOMELESS Is pt being admited?: No Does the pt Need Aspirin: No Condition: Stable Instructions: Heartburn, [id number], Food Choices for Gastroesophageal Reflux Disease, Adult, Nonspecific Chest Pain, Adult Additional Instructions: Patient to follow-up with primary care in 2 to 3 days. 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 Patient to rest. Patient to increase water. Patient to eat a reflux diet. Patient to avoid alcohol. Patient to avoid spicy food and ibuprofen. Patient to take Tylenol as needed for pain. Patient to take meds as directed. Patient to return to the ER if condition worsens, changes or new symptoms arise. Prescriptions: Omeprazole 40 mg PO DAILY #30 capsule.dr Referrals: JUDI ISABEL MD [Staff Physician] - 2-3 Days [place] JACKY ESPINAL MD [Primary Care Provider] - 2-3 Days Time of Disposition: 22:56
[2021-05-12 23:01] VITALS: BP 118/86
--- NOTE | 2021-05-14 09:35 | Electrocardiograph Report ---
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
== END 2021-05-12 23:02 | disposition home or self-care (01) ==
LOC: ED 19:28
DX: K21.9 Gastro-esophageal reflux disease without esophagitis (principal); Z79.899 Other long term (current) drug therapy
CPT/HCPCS: 93005; 99282

== ENCOUNTER 2021-06-18 09:43 | Emergency (ER) | payer SELFPAY ==
[2021-06-18] MEDS ORDERED: ACETAMINOPHEN 325 MG TAB PO ONE (10:01)
--- NOTE | 2021-06-18 12:58 | Emergency Department Report ---
HPI - General Chief Complaint: Pain General Time Seen by Provider: 06/18/21 12:28 - HPI HPI: 45-year-old male with no known past medical history other than chronic alcoholic gastritis presents complaining of 3 days of URI symptoms including malaise, profound tiredness, fevers, and headache with neck pain as well as dry cough. The patient states that the symptoms came on gradually. He says he took his temperature for the first time today and noticed he had a fever which is why he came in. He describes global pressure-like headache which is continuous with an aching pain in his neck. He denies any associated neck stiffness, vision change, chest pain, shortness of breath, abdominal pain, nausea/vomiting, focal weakness, sensory changes, or any other complaints. The patient states that he stopped drinking alcohol approximately 2 weeks ago. He is not vaccinated against COVID-19. ED Past Medical Hx - Past Medical History Previous Medical History?: Yes Hx GERD: Yes - Surgical History Hx Appendectomy: Yes - Social History Smoking Status: Never Smoker Substance Use Type: Alcohol - Medications Home Medications: Home Medications Medication Instructions Recorded Confirmed Last Taken Type Ondansetron (Nf) [Zofran TAB] 8 mg PO Q8HR PRN #20 tablet 10/13/19 Unknown Rx Lansoprazole [Prevacid] 15 mg PO BID #30 cap 08/20/20 Unknown Rx Famotidine [Pepcid] 40 mg PO QHS #30 tablet 02/18/21 Unknown Rx Famotidine [Pepcid] 20 mg PO BID #20 tablet 04/03/21 Unknown Rx Ondansetron [Zofran ODT TAB] 4 mg PO Q8HR PRN #8 tab.rapdis 04/03/21 Unknown Rx Sucralfate [Carafate] 1 gm PO ACHS 7 Days #21 tablet 04/03/21 Unknown Rx Dicyclomine [Bentyl] 20 mg PO Q6H PRN #30 tablet 05/05/21 Unknown Rx Famotidine [Pepcid] 20 mg PO BID #60 tablet 05/05/21 Unknown Rx Ondansetron [Zofran Odt] 4 mg PO Q6HR PRN #15 tab.rapdis 05/05/21 Unknown Rx Hyoscyamine Subl [Levsin Sl 0.125 0.125 mg SL Q6HR PRN #20 tab 06/05/21 Unknown Rx TAB] Metoclopramide [Reglan] 10 mg PO TID PRN #30 tab 06/05/21 Unknown Rx Omeprazole 40 mg PO DAILY #30 capsule. 06/05/21 Unknown Rx ED Review of Systems ROS: Stated complaint: BODYACHES Other details as noted in HPI Comment: All other systems reviewed and negative Constitutional: fever, malaise Eyes: denies: eye pain, vision change ENT: congestion. denies: throat pain Respiratory: cough. denies: shortness of breath Cardiovascular: denies: chest pain, palpitations Gastrointestinal: denies: abdominal pain, nausea, vomiting Genitourinary: denies: dysuria, frequency Musculoskeletal: denies: back pain, arthralgia Skin: denies: rash, lesions Neurological: headache. denies: weakness, numbness, paresthesias Hematological/Lymphatic: denies: easy bleeding Physical Exam - Physical Exam Vital Signs: Vital Signs 06/18/21 10:00 Temperature 101.7 F H Pulse Rate 96 H Respiratory 20 Rate Blood Pressure 115/66 O2 Sat by Pulse 96 Oximetry Physical Exam: GENERAL: Well developed and well nourished. No acute distress HEAD: Normocephalic. No obvious signs of trauma. ENT: Slightly dry mucous membranes. EYES: Extraocular movements are intact. Pupils are equal round and reactive to light bilaterally NECK: Supple. Full ROM is intact. Trachea is midline. No meningismus. LUNGS: Nonlabored breathing. Equal chest rise bilaterally. Clear to auscultation bilaterally. CARDIOVASCULAR: Regular rate and rhythm. No murmurs or rubs. VASCULAR: Cap refill < 2 seconds ABDOMEN: Abdomen is soft and nondistended. There is no significant tenderness, guarding or rebound. SKIN: Skin is warm and dry NEURO: Patient is awake, alert, and oriented. hotbed operator II-XII grossly intact. No focal deficits. Normal motor and sensory exam throughout. Normal speech. MUSCULOSKELETAL: No obvious deformities. No significant tenderness. Normal ROM throughout. BACK/SPINE: No midline tenderness or step-offs of the C/T/L spine. No costovertebral angle tenderness. ED Course Vital Signs 06/18/21 10:00 Temperature 101.7 F H Pulse Rate 96 H Respiratory 20 Rate Blood Pressure 115/66 O2 Sat by Pulse 96 Oximetry ED Medical Decision Making - Radiology Data Radiology results: report reviewed - Medical Decision Making 45-year-old male presenting with 3 days of URI symptoms including fever, malaise, cough, and headache with aching in the neck. On initial assessment he is noted to be febrile with a temp of 101.7. He has normal vitals otherwise with the exception of heart rate in the 90s. On physical examination he is dry mucous membranes. He has a nonfocal neurologic exam. His lungs are clear to auscultation. He has no red flag signs or symptoms. We discussed the need for maintaining hydration with fluids containing electrolytes. In addition, I have ordered a chest x-ray to assess for evidence of pneumonia. Chest x-ray shows no acute abnormalities. The patient feels much better than when he arrived. I encouraged him to get tested for COVID-19 and follow-up with a primary care doctor closely. He expressed understanding and agreement with the plan of care. He will return for any significantly worsening symptoms, chest pain/shortness of breath, or any other new health concerns Critical care attestation.: If time is entered above; I have spent that time in minutes in the direct care of this critically ill patient, excluding procedure time. ED Disposition Clinical Impression: URI (upper respiratory infection), Suspected COVID-19 virus infection Disposition: HOME / SELF CARE / HOMELESS Is pt being admited?: No Condition: Stable Instructions: COVID-19 Frequently Asked Questions, Upper Respiratory Infection, Adult, COVID-19, Viral Respiratory Infection Referrals: [facility] [Provider Group] - 3-5 Days
--- NOTE | 2021-06-18 13:07 | XRay Report ---
CHEST 2 VIEWS INDICATION / CLINICAL INFORMATION: URI. COMPARISON: 03/05/21. FINDINGS: SUPPORT DEVICES: None. HEART / MEDIASTINUM: The heart size and pulmonary vasculature are normal. LUNGS / PLEURA: No significant pulmonary or pleural abnormality. No pneumothorax. ADDITIONAL FINDINGS: No significant additional findings. IMPRESSION: No acute abnormality or significant change. No evidence of pneumonia. Signer Name: Erick West MD Signed: 06/18/2021 1:03 PM Workstation Name: [id number]
[2021-06-18 14:33] VITALS: BP 115/76
--- NOTE | 2021-06-21 08:52 | Electrocardiograph Report ---
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
== END 2021-06-18 14:34 | disposition home or self-care (01) ==
LOC: ED 09:43
DX: J06.9 Acute upper respiratory infection, unspecified (principal); K21.9 Gastro-esophageal reflux disease without esophagitis; Z20.822 Contact with and (suspected) exposure to COVID-19
CPT/HCPCS: 71046; 93005; 99283

== ENCOUNTER 2021-07-15 11:58 | Emergency (ER) | payer BC, SELFPAY ==
[2021-07-15] MEDS ORDERED: KETOROLAC 30 MG/1 ML INJ IV ONE (12:30)
[2021-07-15] MEDS ORDERED: SODIUM CHLORIDE 0.9% 1000 ML 1,000 ML IV ONE (12:30)
[2021-07-15] MEDS ORDERED: diphenhydrAMINE 50 MG/ML VIAL IV ONE (12:30)
[2021-07-15] MEDS ORDERED: METOCLOPRAMIDE 10 MG/2 ML INJ IV ONE (12:30)
[2021-07-15 16:27] VITALS: BP 103/74
== END 2021-07-15 16:41 | disposition home or self-care (01) ==
LOC: ED 11:58
DX: R51.9 Headache, unspecified (principal); Z53.21 Procedure and treatment not carried out due to patient leaving prior to being seen by health care provider
CPT/HCPCS: 96361; 96374; 96375; J1200; J1885; J2765; J7030; 99282; Q0162

== ENCOUNTER 2021-07-22 02:39 | Emergency (ER) | payer SELFPAY | END 2021-07-22 02:45 | disposition left against medical advice (07) | LOC: ED 02:39 | DX: R07.89 Other chest pain (principal); Z53.21 Procedure and treatment not carried out due to patient leaving prior to being seen by health care provider ==

== ENCOUNTER 2021-08-05 17:16 | Emergency (ER) | payer BC, OTHER ==
[2021-08-05] MEDS ORDERED: ALUM-MAG HYDROXIDE-SIMETHICONE 200-200-20MG/5ML ORAL LIQD 30 ML PO ONE (19:15)
[2021-08-05] MEDS ORDERED: LIDOCAINE VISCOUS 2% 15 ML ORAL LIQD PO ONE (19:17)
[2021-08-05] MEDS ORDERED: FAMOTIDINE 20 MG TAB PO ONE (19:19)
--- NOTE | 2021-08-05 19:31 | Emergency Department Report ---
ED Abdominal Pain HPI - General Chief Complaint: Abdominal Pain Stated Complaint: STOMACH PAIN Source: patient Mode of arrival: Ambulatory Limitations: No Limitations - History of Present Illness Initial Comments: 45-year-old male presents to the ED complaining epigastric pain. Patient has a history chronic GERD. He states taking omeprazole this a.m. without any relief. Patient states he last seen his PCP last week and omeprazole was increased to twice a day. Patient states that he has had an EGD done in the past that shows no significant finding. Patient is searching the Internet and states that he is concerned with all the different findings that could be causing his GERD to be worse. He denies any alcohol use today. Patient states he is able to tolerate food without difficulty. Denies any nausea and vomiting or diarrhea. Patient denies any chest pain or shortness of breath. -: This morning Radiation: epigastric Severity scale (0 -10): 5 Quality: burning Improves With: nothing Worsens With: nothing Associated Symptoms: denies other symptoms - Related Data Previous Rx's Medication Instructions Recorded Last Taken Type Ondansetron (Nf) [Zofran TAB] 8 mg PO Q8HR PRN #20 tablet 10/13/19 Unknown Rx Lansoprazole [Prevacid] 15 mg PO BID #30 cap 08/20/20 Unknown Rx Famotidine [Pepcid] 40 mg PO QHS #30 tablet 02/18/21 Unknown Rx Famotidine [Pepcid] 20 mg PO BID #20 tablet 04/03/21 Unknown Rx Ondansetron [Zofran ODT TAB] 4 mg PO Q8HR PRN #8 tab.rapdis 04/03/21 Unknown Rx Sucralfate [Carafate] 1 gm PO ACHS 7 Days #21 tablet 04/03/21 Unknown Rx Dicyclomine [Bentyl] 20 mg PO Q6H PRN #30 tablet 05/05/21 Unknown Rx Famotidine [Pepcid] 20 mg PO BID #60 tablet 05/05/21 Unknown Rx Ondansetron [Zofran Odt] 4 mg PO Q6HR PRN #15 tab.rapdis 05/05/21 Unknown Rx Hyoscyamine Subl [Levsin Sl 0.125 0.125 mg SL Q6HR PRN #20 tab 06/05/21 Unknown Rx TAB] Metoclopramide [Reglan] 10 mg PO TID PRN #30 tab 06/05/21 Unknown Rx Omeprazole 40 mg PO DAILY #30 capsule. 06/05/21 Unknown Rx Butalb/Acetaminophen/Caffeine 1 cap PO Q6HR PRN #20 cap 07/15/21 Unknown Rx [Fioricet 50-300-40 mg CAP] Allergies Allergy/AdvReac Type Severity Reaction Status Date / Time morphine Allergy Unknown Verified 07/15/21 12:08 ED Review of Systems ROS: Stated complaint: STOMACH PAIN Other details as noted in HPI Constitutional: denies: chills, fever Eyes: denies: eye pain, eye discharge, vision change ENT: denies: ear pain, throat pain Respiratory: denies: cough, shortness of breath, wheezing Cardiovascular: denies: chest pain, palpitations Endocrine: no symptoms reported Gastrointestinal: other (Epigastric). denies: abdominal pain, nausea, diarrhea Genitourinary: denies: urgency, dysuria Musculoskeletal: denies: back pain, joint swelling, arthralgia Skin: denies: rash, lesions Neurological: denies: headache, weakness, paresthesias Psychiatric: denies: anxiety, depression Hematological/Lymphatic: denies: easy bleeding, easy bruising ED Past Medical Hx - Past Medical History Hx GERD: Yes - Surgical History Hx Appendectomy: Yes Additional Surgical History: NECK - Social History Smoking Status: Never Smoker Substance Use Type: Alcohol - Medications Home Medications: Home Medications Medication Instructions Recorded Confirmed Last Taken Type Ondansetron (Nf) [Zofran TAB] 8 mg PO Q8HR PRN #20 tablet 10/13/19 Unknown Rx Lansoprazole [Prevacid] 15 mg PO BID #30 cap 08/20/20 Unknown Rx Famotidine [Pepcid] 40 mg PO QHS #30 tablet 02/18/21 Unknown Rx Famotidine [Pepcid] 20 mg PO BID #20 tablet 04/03/21 Unknown Rx Ondansetron [Zofran ODT TAB] 4 mg PO Q8HR PRN #8 tab.rapdis 04/03/21 Unknown Rx Sucralfate [Carafate] 1 gm PO ACHS 7 Days #21 tablet 04/03/21 Unknown Rx Dicyclomine [Bentyl] 20 mg PO Q6H PRN #30 tablet 05/05/21 Unknown Rx Famotidine [Pepcid] 20 mg PO BID #60 tablet 05/05/21 Unknown Rx Ondansetron [Zofran Odt] 4 mg PO Q6HR PRN #15 tab.rapdis 05/05/21 Unknown Rx Hyoscyamine Subl [Levsin Sl 0.125 0.125 mg SL Q6HR PRN #20 tab 06/05/21 Unknown Rx TAB] Metoclopramide [Reglan] 10 mg PO TID PRN #30 tab 06/05/21 Unknown Rx Omeprazole 40 mg PO DAILY #30 capsule.dr 06/05/21 Unknown Rx Butalb/Acetaminophen/Caffeine 1 cap PO Q6HR PRN #20 cap 07/15/21 Unknown Rx [Fioricet 50-300-40 mg CAP] ED Physical Exam - General Limitations: No Limitations General appearance: alert, in no apparent distress - Head Head exam: Present: atraumatic, normocephalic - Eye Eye exam: Present: normal appearance - ENT ENT exam: Present: mucous membranes moist - Neck Neck exam: Present: normal inspection - Respiratory Respiratory exam: Present: normal lung sounds bilaterally. Absent: respiratory distress, wheezes - Cardiovascular Cardiovascular Exam: Present: regular rate, normal rhythm. Absent: systolic murmur, diastolic murmur, rubs, gallop - GI/Abdominal GI/Abdominal exam: Present: soft, normal bowel sounds - Rectal Rectal exam: Present: deferred - Extremities Exam Extremities exam: Present: normal inspection - Back Exam Back exam: Present: normal inspection - Neurological Exam Neurological exam: Present: alert, oriented X3 - Psychiatric Psychiatric exam: Present: normal affect, normal mood - Skin Skin exam: Present: warm, dry, intact, normal color. Absent: rash ED Course Vital Signs 08/05/21 17:25 Temperature 97.9 F Pulse Rate 68 Respiratory 18 Rate Blood Pressure 113/82 O2 Sat by Pulse 100 Oximetry ED Medical Decision Making - Medical Decision Making 45-year-old male presents to the ED complaining epigastric pain. Patient has a history chronic GERD. He states taking omeprazole this a.m. without any relief. Patient states he last seen his PCP last week and omeprazole was increased to twice a day. Patient states that he has had an EGD done in the past that shows no significant finding. Patient is searching the Internet and states that he is concerned with all the different findings that could be causing his GERD to be worse. He denies any alcohol use today. Patient states he is able to tolerate food without difficulty. Denies any nausea and vomiting or diarrhea. Patient denies any chest pain or shortness of breath. Physical examination unremarkable. Patient given Maalox 30 cc, viscous lidocaine and Pepcid 20 mg p.o.. Patient states relief. Pain scale 0 out of 10 at time of discharge. Rechecked the patient is resting quietly quietly and comfortable and feeling better. I discussed the results of diagnostic study, my clinical impression and the plan for further treatment with the patient. Patient agrees with plan and discharge at this present time. All question addressed. I have given the patient instruction regarding a diagnosis ,expectation ,follow- up and return precaution. I explained to the patient that emergent condition may arise and to return to the ED for new worsen and any new persisting condition. I have explained the importance of following up with the primary care physician or referral physician listed below has instructed. The patient verbalized understanding of discharge instruction. Critical care attestation.: If time is entered above; I have spent that time in minutes in the direct care of this critically ill patient, excluding procedure time. ED Disposition Clinical Impression: Chronic GERD Disposition: HOME / SELF CARE / HOMELESS Is pt being admited?: No Does the pt Need Aspirin: No Condition: Stable Instructions: Gastroesophageal Reflux Disease, Adult, [id number] Additional Instructions: Continue to take omeprazole as directed may Take [id number] Gaviscon Return to the ED for worsening symptoms Referrals: [facility] [Provider Group] - 3-5 Days
[2021-08-05 20:25] VITALS: BP 124/63
== END 2021-08-05 20:25 | disposition home or self-care (01) ==
LOC: ED 17:16
DX: K21.9 Gastro-esophageal reflux disease without esophagitis (principal); Z98.890 Other specified postprocedural states; Z91.09 Other allergy status, other than to drugs and biological substances
CPT/HCPCS: 99282

== ENCOUNTER 2021-08-27 08:38 | Emergency (ER) | payer BC ==
[2021-08-27] MEDS ORDERED: FAMOTIDINE 20 MG/2 ML INJ IV ONE (11:39)
[2021-08-27] MEDS ORDERED: SODIUM CHLORIDE 0.9% 1000 ML 1,000 ML IV ONE (11:39)
[2021-08-27] MEDS ORDERED: ALUM-MAG HYDROXIDE-SIMETHICONE 200-200-20MG/5ML ORAL LIQD 30 ML PO ONE (11:40)
[2021-08-27] MEDS ORDERED: LIDOCAINE VISCOUS 2% 15 ML ORAL LIQD PO ONE (11:40)
--- NOTE | 2021-08-27 11:45 | Emergency Department Report ---
HPI - General Chief Complaint: Abdominal Pain Time Seen by Provider: 08/27/21 11:31 - HPI HPI: Room 34 The patient is a 46-year-old male present with a chief complaint of abdominal and chest pain. The patient states this morning developed pain in epigastric region radiating to his left chest. Patient describes the pain as sharp and constant in nature. Patient states she has noticed increased eructation. Patient is to nausea but denies vomiting. Patient denies pleurisy, shortness of breath, cough or fever. Patient has a history of GERD and states he has been intermittently compliant with his famotidine. The patient drove himself to the emergency department and there are no visitors present ED Past Medical Hx - Past Medical History Hx GERD: Yes - Surgical History Hx Appendectomy: Yes Additional Surgical History: NECK - Family History Family history: no significant - Social History Smoking Status: Never Smoker Substance Use Type: None (Denies illicit drug use), Alcohol (Occasional) - Medications Home Medications: Home Medications Medication Instructions Recorded Confirmed Last Taken Type Ondansetron (Nf) [Zofran TAB] 8 mg PO Q8HR PRN #20 tablet 10/13/19 Unknown Rx Lansoprazole [Prevacid] 15 mg PO BID #30 cap 08/20/20 Unknown Rx Famotidine [Pepcid] 40 mg PO QHS #30 tablet 02/18/21 Unknown Rx Famotidine [Pepcid] 20 mg PO BID #20 tablet 04/03/21 Unknown Rx Ondansetron [Zofran ODT TAB] 4 mg PO Q8HR PRN #8 tab.rapdis 04/03/21 Unknown Rx Sucralfate [Carafate] 1 gm PO ACHS 7 Days #21 tablet 04/03/21 Unknown Rx Dicyclomine [Bentyl] 20 mg PO Q6H PRN #30 tablet 05/05/21 Unknown Rx Famotidine [Pepcid] 20 mg PO BID #60 tablet 05/05/21 Unknown Rx Ondansetron [Zofran Odt] 4 mg PO Q6HR PRN #15 tab.rapdis 05/05/21 Unknown Rx Hyoscyamine Subl [Levsin Sl 0.125 0.125 mg SL Q6HR PRN #20 tab 06/05/21 Unknown Rx TAB] Metoclopramide [Reglan] 10 mg PO TID PRN #30 tab 06/05/21 Unknown Rx Omeprazole 40 mg PO DAILY #30 capsule. 06/05/21 Unknown Rx Butalb/Acetaminophen/Caffeine 1 cap PO Q6HR PRN #20 cap 07/15/21 Unknown Rx [Fioricet 50-300-40 mg CAP] ED Review of Systems ROS: Stated complaint: ABD PAIN Other details as noted in HPI Constitutional: denies: fever Eyes: denies: eye pain ENT: denies: throat pain Respiratory: denies: shortness of breath Cardiovascular: as per HPI Endocrine: no symptoms reported Gastrointestinal: abdominal pain, nausea. denies: vomiting, diarrhea Genitourinary: denies: dysuria Musculoskeletal: denies: back pain Neurological: denies: headache Physical Exam - Physical Exam Vital Signs: Vital Signs 08/27/21 09:09 Temperature 98.5 F Pulse Rate 81 Respiratory 18 Rate Blood Pressure 99/78 [Right] O2 Sat by Pulse 98 Oximetry Physical Exam: GENERAL: The patient is well-developed well-nourished male lying on stretcher not appearing to be in acute distress. [] HEENT: Normocephalic. Atraumatic. Extraocular motions are intact. Patient has moist mucous membranes. NECK: Supple. Trachea midline CHEST/LUNGS: Clear to auscultation. There is no respiratory distress noted. HEART/CARDIOVASCULAR: Regular. There is no tachycardia. There is no gallop rub or murmur. ABDOMEN: Abdomen is soft, with trace discomfort to palpation of the midepigastric region. There is no rebound or guarding. The remainder of the abdomen is soft and nontender to palpation. Patient has normal bowel sounds. There is no abdominal distention. SKIN: There is no rash. There is no edema. There is no diaphoresis. NEURO: The patient is awake, alert, and oriented. The patient is cooperative. The patient has no focal neurologic deficits. The patient has normal speech and gait. GCS 15 MUSCULOSKELETAL: There is no evidence of acute injury. ED Course Vital Signs 08/27/21 09:09 Temperature 98.5 F Pulse Rate 81 Respiratory 18 Rate Blood Pressure 99/78 [Right] O2 Sat by Pulse 98 Oximetry - Reevaluation(s) Reevaluation #1: 08/27/21 13:15 Patient states he feels much improved after IV fluids and meds. ED Medical Decision Making - Lab Data Result diagrams: 08/27/21 11:49 08/27/21 11:49 Laboratory Tests 08/27/21 08/27/21 08/27/21 11:49 11:49 11:49 WBC 7.1 RBC 4.70 Hgb 13.5 Hct 42.1 MCV 90 MCH 29 MCHC 32 RDW 14.6 Plt Count 232 Lymph % (Auto) 25.2 [place] % (Auto) 12.1 H Eos % (Auto) 1.2 Baso % (Auto) 0.6 Lymph # (Auto) 1.8 [place] # (Auto) 0.9 H Eos # (Auto) 0.1 Baso # (Auto) 0.0 Seg Neutrophils % 60.9 Seg Neutrophils # 4.3 D-Dimer 211.70 Sodium 140 Potassium 4.5 Chloride 101.9 Carbon Dioxide 25 Anion Gap 18 BUN 14 Creatinine 0.7 L Estimated GFR > 60 BUN/Creatinine Ratio 20 Glucose 91 Calcium 9.8 Total Bilirubin 0.30 AST 16 ALT 14 Alkaline Phosphatase 67 Total Creatine Kinase 107 CK-MB (CK-2) 1.9 CK-MB (CK-2) Rel Index 1.7 Troponin T < 0.010 Total Protein 7.1 Albumin 4.7 Albumin/Globulin Ratio 2.0 Lipase 24 - EKG Data -: EKG Interpreted by Me EKG shows normal: sinus rhythm Rate: bradycardia (55 bpm) - EKG Data When compared to previous EKG there are: previous EKG unavailable Interpretation: nonspecific ST-T wave akil - Differential Diagnosis GERD, gastritis, peptic ulcer disease, pancreatitis, ACS, PE Critical care attestation.: If time is entered above; I have spent that time in minutes in the direct care of this critically ill patient, excluding procedure time. ED Disposition Clinical Impression: Gastritis, GERD (gastroesophageal reflux disease) Disposition: 01 HOME / SELF CARE / HOMELESS Is pt being admited?: No Does the pt Need Aspirin: No Condition: Stable Instructions: Gastritis, Adult, [id number] Additional Instructions: Return to the emergency department should you develop worsening symptoms, inability to tolerate food or liquids, high fever or any other concerns Referrals: RUBEN LONGO MD [Other] - 3-5 Days KANE RUVALCABA MD [Staff Physician] - 3-5 Days ([place]. Ruval[place]aba [place] a [place] stro[place]. Please follow-up with him for further evaluation if your symptoms persist)
[2021-08-27 12:15] LABS: Basophils % (Auto) 0.6 % (0.0-1.8); Eosinophils # (Auto) 0.1 K/mm3 (0.0-0.4); Eosinophils % (Auto) 1.2 % (0.0-4.3); Hematocrit 42.1 % (35.5-45.6); Hemoglobin 13.5 gm/dl (11.8-15.2); Lymphocytes # (Auto) 1.8 K/mm3 (1.2-5.4); Lymphocytes % (Auto) 25.2 % (13.4-35.0); Mean Corpuscular HGB Conc 32 % (32-34); Mean Corpuscular Volume 90 fl (84-94); Monocytes # (Auto) 0.9 K/mm3 (0.0-0.8); Monocytes % (Auto) 12.1 % (0.0-7.3); Platelet Count 232 K/mm3 (140-440); Red Cell Distribution Width 14.6 % (13.2-15.2)
[2021-08-27 12:25] LABS: Creatine Kinase MB 1.9 ng/mL (0.0-4.0)
[2021-08-27 12:26] LABS: Alanine Aminotransferase 14 units/L (7-56); Albumin 4.7 g/dL (3.9-5); Blood Urea Nitrogen 14 mg/dL (9-20); Calcium 9.8 mg/dL (8.4-10.2); Hemolysis Index 5
[2021-08-27 12:48] LABS: BUN/Creatinine Ratio 20
[2021-08-27 13:53] VITALS: BP 135/88
--- NOTE | 2021-08-28 09:15 | Electrocardiograph Report ---
[facility] Test Date: 2021-08-27 Test Time: 13:26:03 Pat Name: DOMINIC LAMBERT Department: Room: Gender: M Uptwist Spinner: BROCK : 1975 Requested By: DIVINA MOSS Order Number: [id number] Reading MD: Maddi Ayon Measurements Intervals [place] Rate: 55 P: 72 UT: 159 QRS: 79 QRSD: 89 T: 71 QT: 410 QTc: 393 Interpretive Statements Sinus bradycardia Consider left ventricular hypertrophy Compared to ECG 06/18/2021 13:01:50 No significant change Electronically Signed On 08-28-2021 9:14:20 EDT by Maddi Ayon
== END 2021-08-27 13:53 | disposition home or self-care (01) ==
LOC: ED 08:38
DX: K21.9 Gastro-esophageal reflux disease without esophagitis (principal); K29.70 Gastritis, unspecified, without bleeding; Z98.890 Other specified postprocedural states
CPT/HCPCS: 36415; 80053; 82550; 82553; 83690; 84484; 85025; 85379; 93005; 96361; 96374; 99283; J3490; J7030; Q0162

== ENCOUNTER 2021-09-24 18:49 | Emergency (ER) | payer BC ==
[2021-09-24 19:59] VITALS: BP 123/95
[2021-09-24] MEDS ORDERED: ASPIRIN 325 MG TAB PO ONE (20:03)
--- NOTE | 2021-09-24 20:38 | XRay Report ---
CHEST 2 VIEWS INDICATION / CLINICAL INFORMATION: CHEST PAIN. COMPARISON: 06/18/2021 FINDINGS: SUPPORT DEVICES: None. HEART / MEDIASTINUM: No significant abnormality. LUNGS / PLEURA: No significant pulmonary or pleural abnormality. No pneumothorax. ADDITIONAL FINDINGS: No significant additional findings. IMPRESSION: 1. No acute findings. No interval change. Signer Name: Aiyana Yanez MD Signed: 09/24/2021 8:34 PM Workstation Name: [id number]
[2021-09-24 21:27] LABS: Hematocrit 44.8 % (35.5-45.6); Hemoglobin 14.1 gm/dl (11.8-15.2); Mean Corpuscular HGB Conc 31 % (32-34); Mean Corpuscular Volume 89 fl (84-94); Platelet Count 259 K/mm3 (140-440); Red Blood Count 5.03 M/mm3 (3.65-5.03); Red Cell Distribution Width 14.3 % (13.2-15.2)
[2021-09-24 21:36] LABS: Alanine Aminotransferase 18 units/L (7-56); Albumin 5.2 g/dL (3.9-5); BUN/Creatinine Ratio 13; Blood Urea Nitrogen 10 mg/dL (9-20); Calcium 10.2 mg/dL (8.4-10.2)
[2021-09-24 21:37] LABS: Hemolysis Index 2
[2021-09-25 03:13] LABS: Anisocytosis 1+; Eosinophils % (Manual) 0 % (0.0-4.3); Platelet Estimate Consistent w Auto; Total Cells Counted 100
--- NOTE | 2021-09-25 14:20 | Electrocardiograph Report ---
[facility] Test Date: 2021-09-24 Test Time: 19:32:19 Pat Name: DOMINIC LAMBERT Department: Room: Gender: M Rn Provider Relations: STEPHEN : 1975 Requested By: GINGER TREJO Order Number: [id number] Reading MD: Maddi Ayon Measurements Intervals [place] Rate: 96 P: 73 ME: 125 QRS: 79 QRSD: 89 T: 43 QT: 352 QTc: 446 Interpretive Statements Sinus rhythm Consider left ventricular hypertrophy Compared to ECG 08/27/2021 13:26:03 Sinus rate has increased Electronically Signed On 09-25-2021 14:20:04 EDT by Maddi Ayon
== END 2021-09-24 23:55 | disposition left against medical advice (07) ==
LOC: ED 18:49
DX: R07.9 Chest pain, unspecified (principal); Z53.21 Procedure and treatment not carried out due to patient leaving prior to being seen by health care provider
CPT/HCPCS: 36415; 71046; 80053; 84484; 85007; 85025; 93005

== ENCOUNTER 2021-09-30 11:41 | Emergency (ER) | payer BC ==
[2021-09-30] MEDS ORDERED: SODIUM CHLORIDE 0.9% 1000 ML 1,000 ML IV ONE (12:41)
[2021-09-30] MEDS ORDERED: DICYCLOMINE 20 MG TAB PO ONE (12:41)
[2021-09-30] MEDS ORDERED: ONDANSETRON 4 MG/2 ML INJ IV ONE (12:41)
--- NOTE | 2021-09-30 12:54 | Emergency Department Report ---
ED Abdominal Pain HPI - General Chief Complaint: Abdominal Pain Stated Complaint: AB PAIN Time Seen by Provider: 09/30/21 12:39 Source: patient Mode of arrival: Ambulatory Limitations: No Limitations - History of Present Illness Initial Comments: 46-year-old -[place] male presents to the emergency room for 2-week history of dull abdominal pain that comes and goes. Patient admits to nausea but no vomiting decreased appetite. Patient does admit that he drinks alcohol. Reports he has a history of acid reflux and is currently on omeprazole and Pepcid states is not working. Patient denies any fever chills no chest pain no shortness of breath. MD Complaint: abdominal pain Onset/Timin -: week(s) Location: epigastric Severity scale (0 -10): 7 Quality: dull Consistency: intermittent Improves With: nothing Worsens With: nothing Associated Symptoms: nausea. denies: vomiting - Related Data Previous Rx's Medication Instructions Recorded Last Taken Type Ondansetron (Nf) [Zofran TAB] 8 mg PO Q8HR PRN #20 tablet 10/13/19 Unknown Rx Lansoprazole [Prevacid] 15 mg PO BID #30 cap 08/20/20 Unknown Rx Famotidine [Pepcid] 40 mg PO QHS #30 tablet 02/18/21 Unknown Rx Famotidine [Pepcid] 20 mg PO BID #20 tablet 04/03/21 Unknown Rx Ondansetron [Zofran ODT TAB] 4 mg PO Q8HR PRN #8 tab.rapdis 04/03/21 Unknown Rx Sucralfate [Carafate] 1 gm PO ACHS 7 Days #21 tablet 04/03/21 Unknown Rx Dicyclomine [Bentyl] 20 mg PO Q6H PRN #30 tablet 05/05/21 Unknown Rx Famotidine [Pepcid] 20 mg PO BID #60 tablet 05/05/21 Unknown Rx Ondansetron [Zofran Odt] 4 mg PO Q6HR PRN #15 tab.rapdis 05/05/21 Unknown Rx Hyoscyamine Subl [Levsin Sl 0.125 0.125 mg SL Q6HR PRN #20 tab 06/05/21 Unknown Rx TAB] Metoclopramide [Reglan] 10 mg PO TID PRN #30 tab 06/05/21 Unknown Rx Omeprazole 40 mg PO DAILY #30 capsule. 06/05/21 Unknown Rx Butalb/Acetaminophen/Caffeine 1 cap PO Q6HR PRN #20 cap 07/15/21 Unknown Rx [Fioricet 50-300-40 mg CAP] Ondansetron [Zofran Odt] 4 mg PO Q8HR PRN #15 tab.rapdis 09/30/21 Unknown Rx Allergies Allergy/AdvReac Type Severity Reaction Status Date / Time morphine Allergy Mild Unknown Verified 09/30/21 11:48 ED Review of Systems ROS: Stated complaint: AB PAIN Other details as noted in HPI ED Past Medical Hx - Past Medical History Previous Medical History?: Yes Hx GERD: Yes - Surgical History Hx Appendectomy: Yes Additional Surgical History: NECK - Social History Smoking Status: Never Smoker Substance Use Type: Alcohol - Medications Home Medications: Home Medications Medication Instructions Recorded Confirmed Last Taken Type Ondansetron (Nf) [Zofran TAB] 8 mg PO Q8HR PRN #20 tablet 10/13/19 Unknown Rx Lansoprazole [Prevacid] 15 mg PO BID #30 cap 08/20/20 Unknown Rx Famotidine [Pepcid] 40 mg PO QHS #30 tablet 02/18/21 Unknown Rx Famotidine [Pepcid] 20 mg PO BID #20 tablet 04/03/21 Unknown Rx Ondansetron [Zofran ODT TAB] 4 mg PO Q8HR PRN #8 tab.rapdis 04/03/21 Unknown Rx Sucralfate [Carafate] 1 gm PO ACHS 7 Days #21 tablet 04/03/21 Unknown Rx Dicyclomine [Bentyl] 20 mg PO Q6H PRN #30 tablet 05/05/21 Unknown Rx Famotidine [Pepcid] 20 mg PO BID #60 tablet 05/05/21 Unknown Rx Ondansetron [Zofran Odt] 4 mg PO Q6HR PRN #15 tab.rapdis 05/05/21 Unknown Rx Hyoscyamine Subl [Levsin Sl 0.125 0.125 mg SL Q6HR PRN #20 tab 06/05/21 Unknown Rx TAB] Metoclopramide [Reglan] 10 mg PO TID PRN #30 tab 06/05/21 Unknown Rx Omeprazole 40 mg PO DAILY #30 capsule. 06/05/21 Unknown Rx Butalb/Acetaminophen/Caffeine 1 cap PO Q6HR PRN #20 cap 07/15/21 Unknown Rx [Fioricet 50-300-40 mg CAP] Ondansetron [Zofran Odt] 4 mg PO Q8HR PRN #15 tab.rapdis 09/30/21 Unknown Rx ED Physical Exam - General Limitations: No Limitations General appearance: alert, in distress - Head Head exam: Present: atraumatic, normocephalic - Eye Eye exam: Present: normal appearance, EOMI - ENT ENT exam: Present: mucous membranes moist - Neck Neck exam: Present: normal inspection, full ROM - Respiratory Respiratory exam: Present: normal lung sounds bilaterally - Cardiovascular Cardiovascular Exam: Present: tachycardia - GI/Abdominal GI/Abdominal exam: Present: soft, tenderness (epigastric), guarding, normal bowel sounds - Extremities Exam Extremities exam: Present: normal inspection, full ROM - Back Exam Back exam: Present: normal inspection, full ROM - Neurological Exam Neurological exam: Present: alert, oriented X3, normal gait - Psychiatric Psychiatric exam: Present: normal affect, normal mood - Skin Skin exam: Present: warm, dry, intact, normal color. Absent: rash ED Course Vital Signs 09/30/21 09/30/21 09/30/21 11:48 11:49 12:22 Temperature 98.7 F Pulse Rate 111 H 111 H Respiratory 15 15 20 Rate Blood Pressure 135/96 Blood Pressure 135/96 [Right] O2 Sat by Pulse 100 98 Oximetry ED Medical Decision Making - Lab Data Result diagrams: 09/30/21 13:00 09/30/21 13:00 - Radiology Data Radiology results: report reviewed [facility] [address] [place] [address] Cat Scan Report Signed Patient: DOMINIC LAMBERT MR#: [id number] : 1975 Acct:[id number] Age/Sex: 46 / M ADM Date: 09/30/21 Loc: ED Attending Dr: Ordering Physician: СВЕТЛАНА SALAZAR Date of Service: 09/30/21 Procedure(s): CT abdomen pelvis wo con Accession Number(s): [id number] cc: СВЕТЛАНА SALAZAR CT ABDOMEN AND PELVIS WITHOUT CONTRAST INDICATION / CLINICAL INFORMATION: Epigastric pain. TECHNIQUE: Axial CT images were obtained through the abdomen and pelvis without IV contrast. All CT scans at this location are performed using CT dose reduction for ALARA by means of automated exposure control. COMPARISON: None available. FINDINGS: Evaluation of the solid organs is limited due to lack of intravenous contrast. LOWER CHEST: No significant abnormality LIVER: No significant abnormality GALLBLADDER/BILIARY TREE: No significant abnormality PANCREAS: There is subtle peripancreatic inflammation in the region of the pancreatic head. SPLEEN: No significant abnormality ADRENALS: No significant abnormality RIGHT KIDNEY / URETER: No significant abnormality LEFT KIDNEY / URETER: No significant abnormality URINARY BLADDER: No significant abnormality REPRODUCTIVE ORGANS: No significant abnormality STOMACH / BOWEL: Small bowel is normal in caliber. The colon is unremarkable. The appendix is not discretely seen, though there are no secondary signs of appendicitis. LYMPH NODES: No significant adenopathy. VASCULATURE: No significant abnormality. OTHER: No free air, free fluid, or focal fluid collection is identified. SKELETAL SYSTEM: No acute osseous findings. IMPRESSION: 1. Subtle inflammation about the pancreatic head, may reflect early acute pancreatitis. Recommend correlation for laboratory values. 2. No other acute abnormality. Signer Name: Calos Miller MD Signed: 09/30/2021 3:00 PM Workstation Name: [id number] Transcribed By: JS Dictated By: CALOS MILLER MD Electronically Authenticated By: CALOS MILLER MD Signed Date/Time: 09/30/21 1500 DD/ 55 TD/TT: Print - Medical Decision Making 46-year-old -[place]ian male presents to the emergency room for 2-week history of dull abdominal pain that comes and goes. Patient admits to nausea but no vomiting decreased appetite. Patient does admit that he drinks alcohol. Reports he has a history of acid reflux and is currently on omeprazole and Pepcid states is not working. Patient denies any fever chills no chest pain no shortness of breath. CBC, CMP, IV, CT abd/pelvis with contrast. Bently and pepcid. Critical care attestation.: If time is entered above; I have spent that time in minutes in the direct care of this critically ill patient, excluding procedure time. ED Disposition Clinical Impression: Pancreatitis Disposition: 01 HOME / SELF CARE / HOMELESS Is pt being admited?: No Does the pt Need Aspirin: No Condition: Stable Instructions: Pancreatitis Eating Plan, Acute Pancreatitis, [id number] Additional Instructions: CT scan showed early pancreatitis. Recommend to stop drinking alcohol. Nothing to eat or drink in the next 24 hours. Start back drinking and advance your diet as tolerated. Prescriptions: Ondansetron [Zofran Odt] 4 mg PO Q8HR PRN #15 tab.rapdis PRN Reason: Nausea And Vomiting Referrals: AYANNA COX [Primary Care Provider] - 3-5 Days Forms: Work/School Release Form(ED) Time of Disposition: 16:00
[2021-09-30 13:40] LABS: Basophils # (Auto) 0.1 K/mm3 (0.0-0.1); Basophils % (Auto) 0.5 % (0.0-1.8); Eosinophils % (Auto) 0.5 % (0.0-4.3); Hematocrit 41.8 % (35.5-45.6); Hemoglobin 13.7 gm/dl (11.8-15.2); Lymphocytes # (Auto) 1.9 K/mm3 (1.2-5.4); Lymphocytes % (Auto) 19.2 % (13.4-35.0); Mean Corpuscular HGB Conc 33 % (32-34); Mean Corpuscular Volume 89 fl (84-94); Monocytes # (Auto) 1.2 K/mm3 (0.0-0.8); Platelet Count 260 K/mm3 (140-440)
[2021-09-30 14:05] LABS: Alanine Aminotransferase 20 units/L (7-56); Albumin 5.2 g/dL (3.9-5); Blood Urea Nitrogen 9 mg/dL (9-20); Calcium 10.1 mg/dL (8.4-10.2); Hemolysis Index 3
[2021-09-30 14:08] LABS: BUN/Creatinine Ratio 13
--- NOTE | 2021-09-30 15:04 | Cat Scan Report ---
CT ABDOMEN AND PELVIS WITHOUT CONTRAST INDICATION / CLINICAL INFORMATION: Epigastric pain. TECHNIQUE: Axial CT images were obtained through the abdomen and pelvis without IV contrast. All CT scans at this location are performed using CT dose reduction for ALARA by means of automated exposure control. COMPARISON: None available. FINDINGS: Evaluation of the solid organs is limited due to lack of intravenous contrast. LOWER CHEST: No significant abnormality LIVER: No significant abnormality GALLBLADDER/BILIARY TREE: No significant abnormality PANCREAS: There is subtle peripancreatic inflammation in the region of the pancreatic head. SPLEEN: No significant abnormality ADRENALS: No significant abnormality RIGHT KIDNEY / URETER: No significant abnormality LEFT KIDNEY / URETER: No significant abnormality URINARY BLADDER: No significant abnormality REPRODUCTIVE ORGANS: No significant abnormality STOMACH / BOWEL: Small bowel is normal in caliber. The colon is unremarkable. The appendix is not dis cretely seen, though there are no secondary signs of appendicitis. LYMPH NODES: No significant adenopathy. VASCULATURE: No significant abnormality. OTHER: No free air, free fluid, or focal fluid collection is identified. SKELETAL SYSTEM: No acute osseous findings. IMPRESSION: 1. Subtle inflammation about the pancreatic head, may reflect early acute pancreatitis. Recommend cor relation for laboratory values. 2. No other acute abnormality. Signer Name: Sarath Miller MD Signed: 09/30/2021 3:00 PM Workstation Name: [id number]
[2021-09-30 16:01] VITALS: BP 129/80
== END 2021-09-30 16:17 | disposition home or self-care (01) ==
LOC: ED 11:41
DX: K85.90 Acute pancreatitis without necrosis or infection, unspecified (principal); Z88.6 Allergy status to analgesic agent; F10.20 Alcohol dependence, uncomplicated; Z90.89 Acquired absence of other organs
CPT/HCPCS: 36415; 74176; 80053; 83690; 85025; 96361; 96374; 99284; J2405; J7030

== ENCOUNTER 2021-10-01 06:08 | Emergency (ER) | payer BC ==
[2021-10-01] MEDS ORDERED: ASPIRIN 325 MG TAB PO ONE (06:20)
[2021-10-01 06:47] LABS: Basophils # (Auto) 0.1 K/mm3 (0.0-0.1); Basophils % (Auto) 0.8 % (0.0-1.8); Eosinophils # (Auto) 0.1 K/mm3 (0.0-0.4); Eosinophils % (Auto) 1.4 % (0.0-4.3); Hematocrit 42.8 % (35.5-45.6); Hemoglobin 13.6 gm/dl (11.8-15.2); Lymphocytes # (Auto) 2.4 K/mm3 (1.2-5.4); Lymphocytes % (Auto) 25.2 % (13.4-35.0); Mean Corpuscular HGB Conc 32 % (32-34); Mean Corpuscular Volume 89 fl (84-94); Monocytes # (Auto) 1.1 K/mm3 (0.0-0.8); Monocytes % (Auto) 11.6 % (0.0-7.3); Platelet Count 257 K/mm3 (140-440); Red Blood Count 4.79 M/mm3 (3.65-5.03); Red Cell Distribution Width 14.2 % (13.2-15.2)
--- NOTE | 2021-10-01 07:25 | XRay Report ---
CHEST 2 VIEWS INDICATION / CLINICAL INFORMATION: Chest pain. Dizziness. COMPARISON: 2 views of the chest from 09/24/2021. FINDINGS: SUPPORT DEVICES: None. HEART / MEDIASTINUM: No significant abnormality. LUNGS / PLEURA: No significant pulmonary abnormality. No significant pleural effusion. No pneumothora x. ADDITIONAL FINDINGS: No significant additional findings. IMPRESSION: 1. No acute abnormality of the chest. Signer Name: Mohamud Heard MD Signed: 10/01/2021 7:21 AM Workstation Name: [id number]
[2021-10-01 07:34] LABS: Alanine Aminotransferase 23 units/L (7-56); Albumin 4.8 g/dL (3.9-5); BUN/Creatinine Ratio 16; Blood Urea Nitrogen 14 mg/dL (9-20); Hemolysis Index 5
[2021-10-01] MEDS ORDERED: METOCLOPRAMIDE 10 MG/2 ML INJ IV ONE (07:58)
[2021-10-01] MEDS ORDERED: diphenhydrAMINE 50 MG/ML VIAL IV ONE (07:58)
[2021-10-01] MEDS ORDERED: FAMOTIDINE 20 MG/2 ML INJ IV ONE (07:58)
[2021-10-01] MEDS ORDERED: SODIUM CHLORIDE 0.9% 1000 ML 1,000 ML IV ONE (07:58)
[2021-10-01] MEDS ORDERED: DICYCLOMINE 20 MG TAB PO ONE (07:58)
--- NOTE | 2021-10-01 08:20 | Emergency Department Report ---
ED Abdominal Pain HPI - General Chief Complaint: Chest Pain Stated Complaint: CHEST PAIN Time Seen by Provider: 10/01/21 07:33 Source: patient Mode of arrival: Ambulatory Limitations: No Limitations - History of Present Illness Initial Comments: This is a 46-year-old male nontoxic, well nourished in appearance, no acute signs of distress presents to the ED with c/o of nausea and with epigastric abdominal pain with radiation to midsternal times several days. Patient denies any vomiting. Patient describes abdominal pain as cramping and aching with level of 8/10. Patient denies chest pain, short of breath, fever, hemoptysis, blood in stool, chills, headache, stiff neck, numbness or tingling. Patient denies any diarrhea or constipation. Denies any blood in stool. Patient denies any recent travels. Patient stated allergies to morphine. MD Complaint: abdominal pain -: days(s) Location: epigastric Radiation: chest Severity: mild Severity scale (0 -10): 8 Quality: cramping, aching Consistency: constant Improves With: nothing Worsens With: nothing Associated Symptoms: nausea. denies: vomiting, diarrhea, fever, chills, constipation, dysuria, hematemesis, hematochezia, melena, hematuria, anorexia, syncope - Related Data Previous Rx's Medication Instructions Recorded Last Taken Type Ondansetron (Nf) [Zofran TAB] 8 mg PO Q8HR PRN #20 tablet 10/13/19 Unknown Rx Lansoprazole [Prevacid] 15 mg PO BID #30 cap 08/20/20 Unknown Rx Famotidine [Pepcid] 40 mg PO QHS #30 tablet 02/18/21 Unknown Rx Famotidine [Pepcid] 20 mg PO BID #20 tablet 04/03/21 Unknown Rx Ondansetron [Zofran ODT TAB] 4 mg PO Q8HR PRN #8 tab.rapdis 04/03/21 Unknown Rx Sucralfate [Carafate] 1 gm PO ACHS 7 Days #21 tablet 04/03/21 Unknown Rx Dicyclomine [Bentyl] 20 mg PO Q6H PRN #30 tablet 05/05/21 Unknown Rx Famotidine [Pepcid] 20 mg PO BID #60 tablet 05/05/21 Unknown Rx Ondansetron [Zofran Odt] 4 mg PO Q6HR PRN #15 tab.rapdis 05/05/21 Unknown Rx Hyoscyamine Subl [Levsin Sl 0.125 0.125 mg SL Q6HR PRN #20 tab 06/05/21 Unknown Rx TAB] Metoclopramide [Reglan] 10 mg PO TID PRN #30 tab 06/05/21 Unknown Rx Omeprazole 40 mg PO DAILY #30 capsule.dr 06/05/21 Unknown Rx Butalb/Acetaminophen/Caffeine 1 cap PO Q6HR PRN #20 cap 07/15/21 Unknown Rx [Fioricet 50-300-40 mg CAP] Ondansetron [Zofran Odt] 4 mg PO Q8HR PRN #15 tab.rapdis 09/30/21 Unknown Rx Dicyclomine [Bentyl] 20 mg PO BID PRN #12 tablet 10/01/21 Unknown Rx Ondansetron [Zofran Odt] 4 mg PO Q8HR PRN #12 tab.rapdis 10/01/21 Unknown Rx Allergies Allergy/AdvReac Type Severity Reaction Status Date / Time morphine Allergy Mild Unknown Verified 09/30/21 11:48 ED Review of Systems ROS: Stated complaint: CHEST PAIN Other details as noted in HPI Comment: All other systems reviewed and negative Constitutional: denies: chills, fever Eyes: denies: eye pain, eye discharge, vision change ENT: denies: ear pain, throat pain Respiratory: denies: cough, shortness of breath, wheezing Cardiovascular: chest pain. denies: palpitations, dyspnea on exertion, orthopnea, edema, syncope, paroxysmal nocturnal dyspnea Endocrine: no symptoms reported Gastrointestinal: abdominal pain, nausea. denies: vomiting, diarrhea, constipation, hematemesis, melena, hematochezia Genitourinary: denies: urgency, dysuria Musculoskeletal: denies: back pain, joint swelling, arthralgia Skin: denies: rash, lesions Neurological: denies: headache, weakness, paresthesias Psychiatric: denies: anxiety, depression Hematological/Lymphatic: denies: easy bleeding, easy bruising ED Past Medical Hx - Past Medical History Hx GERD: Yes - Surgical History Hx Appendectomy: Yes Additional Surgical History: NECK - Social History Smoking Status: Never Smoker Substance Use Type: Alcohol - Medications Home Medications: Home Medications Medication Instructions Recorded Confirmed Last Taken Type Ondansetron (Nf) [Zofran TAB] 8 mg PO Q8HR PRN #20 tablet 10/13/19 Unknown Rx Lansoprazole [Prevacid] 15 mg PO BID #30 cap 08/20/20 Unknown Rx Famotidine [Pepcid] 40 mg PO QHS #30 tablet 02/18/21 Unknown Rx Famotidine [Pepcid] 20 mg PO BID #20 tablet 04/03/21 Unknown Rx Ondansetron [Zofran ODT TAB] 4 mg PO Q8HR PRN #8 tab.rapdis 04/03/21 Unknown Rx Sucralfate [Carafate] 1 gm PO ACHS 7 Days #21 tablet 04/03/21 Unknown Rx Dicyclomine [Bentyl] 20 mg PO Q6H PRN #30 tablet 05/05/21 Unknown Rx Famotidine [Pepcid] 20 mg PO BID #60 tablet 05/05/21 Unknown Rx Ondansetron [Zofran Odt] 4 mg PO Q6HR PRN #15 tab.rapdis 05/05/21 Unknown Rx Hyoscyamine Subl [Levsin Sl 0.125 0.125 mg SL Q6HR PRN #20 tab 06/05/21 Unknown Rx TAB] Metoclopramide [Reglan] 10 mg PO TID PRN #30 tab 06/05/21 Unknown Rx Omeprazole 40 mg PO DAILY #30 capsule.dr 06/05/21 Unknown Rx Butalb/Acetaminophen/Caffeine 1 cap PO Q6HR PRN #20 cap 07/15/21 Unknown Rx [Fioricet 50-300-40 mg CAP] Ondansetron [Zofran Odt] 4 mg PO Q8HR PRN #15 tab.rapdis 09/30/21 Unknown Rx Dicyclomine [Bentyl] 20 mg PO BID PRN #12 tablet 10/01/21 Unknown Rx Ondansetron [Zofran Odt] 4 mg PO Q8HR PRN #12 tab.rapdis 10/01/21 Unknown Rx ED Physical Exam - General Limitations: No Limitations General appearance: alert, in no apparent distress - Head Head exam: Present: atraumatic, normocephalic - Eye Eye exam: Present: normal appearance - Neck Neck exam: Present: normal inspection, full ROM. Absent: lymphadenopathy - Respiratory Respiratory exam: Present: normal lung sounds bilaterally. Absent: respiratory distress, wheezes, rales, rhonchi, stridor, chest wall tenderness, accessory muscle use, decreased breath sounds, prolonged expiratory - Cardiovascular Cardiovascular Exam: Present: regular rate, normal rhythm, normal heart sounds. Absent: bradycardia, tachycardia, irregular rhythm, systolic murmur, diastolic murmur, rubs, gallop - GI/Abdominal GI/Abdominal exam: Present: soft, tenderness (upper abdominal/epigastric bilatreal ), normal bowel sounds. Absent: distended, guarding, rebound, rigid, diminished bowel sounds - Extremities Exam Extremities exam: Present: normal inspection, full ROM, normal capillary refill. Absent: tenderness - Back Exam Back exam: Present: normal inspection, full ROM. Absent: tenderness, CVA tenderness (R), CVA tenderness (L), muscle spasm, paraspinal tenderness, vertebral tenderness, rash noted - Neurological Exam Neurological exam: Present: alert, oriented X3, normal gait - Psychiatric Psychiatric exam: Present: normal affect, normal mood - Skin Skin exam: Present: warm, dry, intact, normal color. Absent: rash ED Course Vital Signs 10/01/21 10/01/21 10/01/21 06:12 08:06 09:21 Temperature 97.9 F Pulse Rate 92 H 63 Respiratory 16 17 Rate Blood Pressure 124/85 Blood Pressure 119/74 [Right] O2 Sat by Pulse 97 96 100 Oximetry 10/01/21 11:40 Temperature Pulse Rate 66 Respiratory 20 Rate Blood Pressure Blood Pressure 112/73 [Right] O2 Sat by Pulse 99 Oximetry - Reevaluation(s) Reevaluation #1: 10/01/21 08:22 Patient is speaking in full sentences with no signs of distress noted. ED Medical Decision Making - Lab Data Result diagrams: 10/01/21 06:31 10/01/21 06:31 Lab Results 10/01/21 10/01/21 10/01/21 Range/Units 06:31 06:31 07:37 WBC 9.5 (4.5-11.0) K/mm3 RBC 4.79 (3.65-5.03) M/mm3 Hgb 13.6 (11.8-15.2) gm/dl Hct 42.8 (35.5-45.6) % MCV 89 (84-94) fl MCH 29 (28-32) pg MCHC 32 (32-34) % RDW 14.2 (13.2-15.2) % Plt Count 257 (140-440) K/mm3 Lymph % (Auto) 25.2 (13.4-35.0) % Bledsoe % (Auto) 11.6 H (0.0-7.3) % Eos % (Auto) 1.4 (0.0-4.3) % Baso % (Auto) 0.8 (0.0-1.8) % Lymph # (Auto) 2.4 (1.2-5.4) K/mm3 Bledsoe # (Auto) 1.1 H (0.0-0.8) K/mm3 Eos # (Auto) 0.1 (0.0-0.4) K/mm3 Baso # (Auto) 0.1 (0.0-0.1) K/mm3 Seg Neutrophils % 61.0 (40.0-70.0) % Seg Neutrophils # 5.8 (1.8-7.7) K/mm3 PT 13.4 (12.2-14.9) Sec. INR 0.92 (0.87-1.13) APTT 26.5 (24.2-36.6) Sec. Sodium 140 (137-145) mmol/L Potassium 4.3 (3.6-5.0) mmol/L Chloride 100.5 (98-107) mmol/L Carbon Dioxide 25 (22-30) mmol/L Anion Gap 19 mmol/L BUN 14 (9-20) mg/dL Creatinine 0.9 (0.8-1.3) mg/dL Estimated GFR > 60 ml/min BUN/Creatinine Ratio 16 % Glucose 115 H (75-100) mg/dL Calcium 10.0 (8.4-10.2) mg/dL Total Bilirubin 0.20 (0.1-1.2) mg/dL AST 26 (5-40) units/L ALT 23 (7-56) units/L Alkaline Phosphatase 67 (35-129) units/L Troponin T < 0.010 (0.00-0.029) ng/mL Total Protein 7.0 (6.3-8.2) g/dL Albumin 4.8 (3.9-5) g/dL Albumin/Globulin Ratio 2.2 % Lipase (13-60) units/L Urine Color (Yellow) Urine Turbidity (Clear) Urine pH (5.0-7.0) Ur Specific [place] (1.003-1.030) Urine Protein (Negative) mg/dL Urine Glucose (UA) (Negative) mg/dL Urine Ketones (Negative) mg/dL Urine Blood (Negative) Urine Nitrite (Negative) Urine Bilirubin (Negative) Urine Urobilinogen (<2.0) mg/dL Ur Leukocyte Esterase (Negative) Urine WBC (Auto) (0.0-6.0) /HPF Urine RBC (Auto) (0.0-6.0) /HPF U Epithel Cells (Auto) (0-13.0) /HPF Urine Mucus /HPF 10/01/21 10/01/21 10/01/21 Range/Units 07:37 09:20 12:04 WBC (4.5-11.0) K/mm3 RBC (3.65-5.03) M/mm3 Hgb (11.8-15.2) gm/dl Hct (35.5-45.6) % MCV (84-94) fl MCH (28-32) pg MCHC (32-34) % RDW (13.2-15.2) % Plt Count (140-440) K/mm3 Lymph % (Auto) (13.4-35.0) % Bledsoe % (Auto) (0.0-7.3) % Eos % (Auto) (0.0-4.3) % Baso % (Auto) (0.0-1.8) % Lymph # (Auto) (1.2-5.4) K/mm3 [place] # (Auto) (0.0-0.8) K/mm3 Eos # (Auto) (0.0-0.4) K/mm3 Baso # (Auto) (0.0-0.1) K/mm3 Seg Neutrophils % (40.0-70.0) % Seg Neutrophils # (1.8-7.7) K/mm3 PT (12.2-14.9) Sec. INR (0.87-1.13) APTT (24.2-36.6) Sec. Sodium (137-145) mmol/L Potassium (3.6-5.0) mmol/L Chloride (98-107) mmol/L Carbon Dioxide (22-30) mmol/L Anion Gap mmol/L BUN (9-20) mg/dL Creatinine (0.8-1.3) mg/dL Estimated GFR ml/min BUN/Creatinine Ratio % Glucose (75-100) mg/dL Calcium (8.4-10.2) mg/dL Total Bilirubin (0.1-1.2) mg/dL AST (5-40) units/L ALT (7-56) units/L Alkaline Phosphatase (35-129) units/L Troponin T < 0.010 (0.00-0.029) ng/mL Total Protein (6.3-8.2) g/dL Albumin (3.9-5) g/dL Albumin/Globulin Ratio % Lipase 23 (13-60) units/L Urine Color Straw (Yellow) Urine Turbidity Clear (Clear) Urine pH 5.0 (5.0-7.0) Ur Specific [place] 1.058 H (1.003-1.030) Urine Protein <15 mg/dl (Negative) mg/dL Urine Glucose (UA) Neg (Negative) mg/dL Urine Ketones Neg (Negative) mg/dL Urine Blood Sm (Negative) Urine Nitrite Neg (Negative) Urine Bilirubin Neg (Negative) Urine Urobilinogen < 2.0 (<2.0) mg/dL Ur Leukocyte Esterase Tr (Negative) Urine WBC (Auto) 3.0 (0.0-6.0) /HPF Urine RBC (Auto) 1.0 (0.0-6.0) /HPF U Epithel Cells (Auto) 2.0 (0-13.0) /HPF Urine Mucus Few /HPF - EKG Data 10/01/21 12:57 Normal sinus rhythm at [address] or T wave abnormalities. Reviewed and signed by MD. - Radiology Data [facility] [address] [place] [address] Cat Scan Report Signed Patient: DOMINIC LAMBERT MR#: [id number] : 1975 Acct:[id number] Age/Sex: 46 / M ADM Date: 10/01/21 Loc: ED Attending Dr: Ordering Physician: CORY HOPE NP Date of Service: 10/01/21 Procedure(s): CT abdomen pelvis w con Accession Number(s): [id number] cc: CORY HOPE NP CT abdomen pelvis w con INDICATION / CLINICAL INFORMATION: abd pain with nausea OMNIPAQUE 300 100ML . TECHNIQUE: Axial CT images were obtained through the abdomen and pelvis after 100 cc of Omnipaque [address] scans at this location are performed using CT dose reduction for ALARA by means of automated exposure control. COMPARISON: CT from 09/30/2021 FINDINGS: LOWER CHEST: No significant abnormality LIVER: No significant abnormality GALLBLADDER/BILIARY TREE: No significant abnormality PANCREAS: No significant inflammation of the pancreas on current study. SPLEEN: No significant abnormality ADRENALS: No significant abnormality RIGHT KIDNEY / URETER: No significant abnormality LEFT KIDNEY / URETER: No significant abnormality URINARY BLADDER: No significant abnormality REPRODUCTIVE ORGANS: No significant abnormality STOMACH / BOWEL: There is interval development of prominent but nondilated fluid-filled loops of small bowel in the right midabdomen and left lower abdomen and pelvis. No evidence of small bowel obstruction. The colon is unremarkable. The appendix is not discretely seen, though there are no secondary signs of appendicitis. LYMPH NODES: No significant adenopathy. VASCULATURE: No significant abnormality. OTHER: No free air, free fluid, or focal fluid collection is identified. SKELETAL SYSTEM: No acute osseous findings. IMPRESSION: 1. Interval development of prominent but nondilated fluid-filled loops of small bowel. This is nonspecific but may reflect mild enteritis. 2. No other acute findings. No significant inflammation of the pancreas on current study. Signer Name: Calos Miller MD Signed: 10/01/2021 8:37 AM Workstation Name: [id number] Transcribed By: JS Dictated By: CALOS MILLER MD Electronically Authenticated By: CALOS MILLER MD Signed Date/Time: 10/01/21836 DD/ 1 TD/TT: [facility] [address] [place] [address] XRay Report Signed Patient: DOMINIC LAMBERT MR#: [id number] : 1975 Acct:[id number] Age/Sex: 46 / M ADM Date: 10/01/21 Loc: ED Attending Dr: Ordering Physician: BERT LIU MD Date of Service: 10/01/21 Procedure(s): XR chest routine 2V Accession Number(s): [id number] cc: ED DOC, Fluoro Time In Minutes: CHEST 2 VIEWS INDICATION / CLINICAL INFORMATION: Chest pain. Dizziness. COMPARISON: 2 views of the chest from 09/24/2021. FINDINGS: SUPPORT DEVICES: None. HEART / MEDIASTINUM: No significant abnormality. LUNGS / PLEURA: No significant pulmonary abnormality. No significant pleural effusion. No pneumothorax. ADDITIONAL FINDINGS: No significant additional findings. IMPRESSION: 1. No acute abnormality of the chest. Signer Name: Mohamud Heard MD Signed: 10/01/2021 7:21 AM Workstation Name: [id number] Transcribed By: MN Dictated By: Mhoamud Heard MD Electronically Authenticated By: Mohamud Heard MD Signed Date/Time: 10/01/21720 DD/ 9 TD/TT: - Medical Decision Making This is a 46-year-old male that presents with chest pain and abdominal pain. Patient is stable and was examined by me. CASIMIRO and HEART score 0 pints. PERC score for DVT/SVT/PE 0 points. EKG normal sinus rhythm with no significant changes in ST. Chest xray and CT abdomen dictated by the radiologist. PAtient is notified of the imaging report with no questions noted. Labs within normal limits. Negative troponin x2. Patient received medical treatment in the ED which patient stated symptoms has resovled and subsided. Was instructed note to operate any machinery due to possible drowsiness and stated someone will drive the patient home. A by mouth challenge has been obtained and patient tolerated well with no nausea vomiting. Patient was instructed to Follow-up with a primary care/chief learning officer doctor in 2 days or if symptoms worsen and continue return to emergency room as soon as possible. At time of discharge, the patient does not seem toxic or ill in appearance. No acute signs of distress noted. Patient agrees to discharge treatment plan of care. No further questions noted by the patient. Critical care attestation.: If time is entered above; I have spent that time in minutes in the direct care of this critically ill patient, excluding procedure time. ED Disposition Clinical Impression: Epigastric abdominal pain, Nausea Chest pain, unspecified Qualifiers: Chest pain type: unspecified Qualified Code(s): R07.9 - Chest pain, unspecified Disposition: 01 HOME / SELF CARE / HOMELESS Is pt being admited?: No Does the pt Need Aspirin: No Condition: Stable Instructions: Nonspecific Chest Pain, Adult, Nausea, Adult Additional Instructions: Follow-up with a primary care/chief learning officer doctor in 2 days or if symptoms worsen and continue return to emergency room as soon as possible. Prescriptions: Dicyclomine [Bentyl] 20 mg PO BID PRN #12 tablet PRN Reason: abdominal pain Ondansetron [Zofran Odt] 4 mg PO Q8HR PRN #12 tab.rapdis PRN Reason: Nausea Referrals: MARIANNA NOLAN MD [Staff Physician] - 3-5 Days LYNDSAY ALCANTAR MD [Staff Physician] - 3-5 Days ARA HASSAN MD [Primary Care Provider] - 3-5 Days [facility] [Provider Group] - 3-5 Days Time of Disposition: 13:14
[2021-10-01 08:21] LABS: INR 0.92 (0.87-1.13)
[2021-10-01 08:22] LABS: Partial Thromboplastin Time 26.5 Sec. (24.2-36.6)
--- NOTE | 2021-10-01 08:42 | Cat Scan Report ---
CT abdomen pelvis w con INDICATION / CLINICAL INFORMATION: abd pain with nausea OMNIPAQUE 300 100ML . TECHNIQUE: Axial CT images were obtained through the abdomen and pelvis after 100 cc of Omnipaque [address] scans at this location are performed using CT dose reduction for ALARA by means of automated exposure control. COMPARISON: CT from 09/30/2021 FINDINGS: LOWER CHEST: No significant abnormality LIVER: No significant abnormality GALLBLADDER/BILIARY TREE: No significant abnormality PANCREAS: No significant inflammation of the pancreas on current study. SPLEEN: No significant abnormality ADRENALS: No significant abnormality RIGHT KIDNEY / URETER: No significant abnormality LEFT KIDNEY / URETER: No significant abnormality URINARY BLADDER: No significant abnormality REPRODUCTIVE ORGANS: No significant abnormality STOMACH / BOWEL: There is interval development of prominent but nondilated fluid-filled loops of smal l bowel in the right midabdomen and left lower abdomen and pelvis. No evidence of small bowel obstruc tion. The colon is unremarkable. The appendix is not discretely seen, though there are no secondary s igns of appendicitis. LYMPH NODES: No significant adenopathy. VASCULATURE: No significant abnormality. OTHER: No free air, free fluid, or focal fluid collection is identified. SKELETAL SYSTEM: No acute osseous findings. IMPRESSION: 1. Interval development of prominent but nondilated fluid-filled loops of small bowel. This is nonspe cific but may reflect mild enteritis. 2. No other acute findings. No significant inflammation of the pancreas on current study. Signer Name: Sarath Miller MD Signed: 10/01/2021 8:37 AM Workstation Name: [id number]
[2021-10-01 12:43] LABS: Bilirubin,Urine NEG (Negative); Blood,Urine SM (Negative); Color,Urine Straw (Yellow); Mucus,Urine FEW /HPF; Protein,Urine <15 mg/dL mg/dL (Negative); Urobilinogen,Urine < 2.0 mg/dL (<2.0)
[2021-10-01 13:23] VITALS: BP 102/78
--- NOTE | 2021-10-03 09:57 | Electrocardiograph Report ---
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
== END 2021-10-01 13:24 | disposition home or self-care (01) ==
LOC: ED 06:08
DX: R10.13 Epigastric pain (principal); R11.0 Nausea; R07.89 Other chest pain; K21.9 Gastro-esophageal reflux disease without esophagitis; Z72.89 Other problems related to lifestyle; Z88.5 Allergy status to narcotic agent; Z79.899 Other long term (current) drug therapy
CPT/HCPCS: 36415; 71046; 74177; 80053; 81001; 83690; 84484; 85025; 85610; 85730; 93005; 96361; 96374; 96375; 99284; J1200; J2765; J3490; J7030; Q9967

== ENCOUNTER 2022-01-13 07:39 | Emergency (ER) | payer SELFPAY ==
[2022-01-13] MEDS ORDERED: SODIUM CHLORIDE 0.9% 1000 ML 1,000 ML IV ONE (10:30)
[2022-01-13] MEDS ORDERED: ONDANSETRON 4 MG/2 ML INJ IV ONE (11:00)
[2022-01-13] MEDS ORDERED: DICYCLOMINE 20 MG/2 ML INJ IM ONE (11:00)
[2022-01-13 11:10] LABS: Alanine Aminotransferase 14 units/L (7-56); Albumin 4.6 g/dL (3.9-5); BUN/Creatinine Ratio 11; Blood Urea Nitrogen 10 mg/dL (9-20); Calcium 9.4 mg/dL (8.4-10.2); Hemolysis Index 9
[2022-01-13 11:11] LABS: Hematocrit 39.4 % (35.5-45.6); Mean Corpuscular HGB Conc 33 % (32-34); Mean Corpuscular Volume 88 fl (84-94); Platelet Count 272 K/mm3 (140-440); Red Blood Count 4.47 M/mm3 (3.65-5.03); Red Cell Distribution Width 13.8 % (13.2-15.2)
--- NOTE | 2022-01-13 11:22 | Emergency Department Report ---
ED Abdominal Pain HPI - General Chief Complaint: Abdominal Pain Stated Complaint: CHEST AND STOMACH PAIN Time Seen by Provider: 01/13/22 09:44 Source: patient Mode of arrival: Ambulatory Limitations: No Limitations - History of Present Illness Initial Comments: 46-year-old black male with no past medical history presents to the emergency department for evaluation of several hour history of nausea, vomiting, and abdominal pain. He states that yesterday evening he had some nausea but when he woke up this morning he had severe abdominal pain along with nausea and vomiting. He denies diarrhea, fever, dysuria, and penile discharge. He states that pain is worse is 7 out of 10, intermittent, and a crampy type pain. MD Complaint: abdominal pain -: Gradual, hour(s) Location: diffuse Radiation: none Migration to: no migration Severity: moderate Severity scale (0 -10): 7 Quality: cramping Consistency: intermittent Associated Symptoms: nausea, vomiting. denies: diarrhea, fever, chills, dysuria, hematemesis, hematochezia, melena, anorexia, syncope - Related Data Previous Rx's Medication Instructions Recorded Last Taken Type Ondansetron (Nf) [Zofran TAB] 8 mg PO Q8HR PRN #20 tablet 10/13/19 Unknown Rx Lansoprazole [Prevacid] 15 mg PO BID #30 cap 08/20/20 Unknown Rx Famotidine [Pepcid] 40 mg PO QHS #30 tablet 02/18/21 Unknown Rx Famotidine [Pepcid] 20 mg PO BID #20 tablet 04/03/21 Unknown Rx Ondansetron [Zofran ODT TAB] 4 mg PO Q8HR PRN #8 tab.rapdis 04/03/21 Unknown Rx Sucralfate [Carafate] 1 gm PO ACHS 7 Days #21 tablet 04/03/21 Unknown Rx Dicyclomine [Bentyl] 20 mg PO Q6H PRN #30 tablet 05/05/21 Unknown Rx Famotidine [Pepcid] 20 mg PO BID #60 tablet 05/05/21 Unknown Rx Ondansetron [Zofran Odt] 4 mg PO Q6HR PRN #15 tab.rapdis 05/05/21 Unknown Rx Hyoscyamine Subl [Levsin Sl 0.125 0.125 mg SL Q6HR PRN #20 tab 06/05/21 Unknown Rx TAB] Metoclopramide [Reglan] 10 mg PO TID PRN #30 tab 06/05/21 Unknown Rx Omeprazole 40 mg PO DAILY #30 capsule. 06/05/21 Unknown Rx Butalb/Acetaminophen/Caffeine 1 cap PO Q6HR PRN #20 cap 07/15/21 Unknown Rx [Fioricet 50-300-40 mg CAP] Ondansetron [Zofran Odt] 4 mg PO Q8HR PRN #15 tab.rapdis 09/30/21 Unknown Rx Dicyclomine [Bentyl] 20 mg PO BID PRN #12 tablet 10/01/21 Unknown Rx Ondansetron [Zofran Odt] 4 mg PO Q8HR PRN #12 tab.rapdis 10/01/21 Unknown Rx Dicyclomine [Bentyl] 20 mg PO QID PRN #30 tablet 01/13/22 Unknown Rx Ondansetron [Zofran Odt] 4 mg PO Q8HR PRN #12 tab.rapdis 01/13/22 Unknown Rx Allergies Allergy/AdvReac Type Severity Reaction Status Date / Time No Known Allergies Allergy Verified 01/13/22 09:58 ED Review of Systems ROS: Stated complaint: CHEST AND STOMACH PAIN Other details as noted in HPI Comment: All other systems reviewed and negative Constitutional: denies: chills, fever Respiratory: denies: shortness of breath Cardiovascular: denies: chest pain, palpitations Gastrointestinal: abdominal pain, nausea, vomiting. denies: diarrhea, hematemesis, melena, hematochezia Genitourinary: denies: urgency, dysuria Musculoskeletal: denies: back pain Skin: denies: rash, lesions Neurological: denies: headache, weakness ED Past Medical Hx - Past Medical History Hx GERD: Yes - Surgical History Hx Appendectomy: Yes Additional Surgical History: NECK - Social History Smoking Status: Never Smoker Substance Use Type: Alcohol - Medications Home Medications: Home Medications Medication Instructions Recorded Confirmed Last Taken Type Ondansetron (Nf) [Zofran TAB] 8 mg PO Q8HR PRN #20 tablet 10/13/19 Unknown Rx Lansoprazole [Prevacid] 15 mg PO BID #30 cap 08/20/20 Unknown Rx Famotidine [Pepcid] 40 mg PO QHS #30 tablet 02/18/21 Unknown Rx Famotidine [Pepcid] 20 mg PO BID #20 tablet 04/03/21 Unknown Rx Ondansetron [Zofran ODT TAB] 4 mg PO Q8HR PRN #8 tab.rapdis 04/03/21 Unknown Rx Sucralfate [Carafate] 1 gm PO ACHS 7 Days #21 tablet 04/03/21 Unknown Rx Dicyclomine [Bentyl] 20 mg PO Q6H PRN #30 tablet 05/05/21 Unknown Rx Famotidine [Pepcid] 20 mg PO BID #60 tablet 05/05/21 Unknown Rx Ondansetron [Zofran Odt] 4 mg PO Q6HR PRN #15 tab.rapdis 05/05/21 Unknown Rx Hyoscyamine Subl [Levsin Sl 0.125 0.125 mg SL Q6HR PRN #20 tab 06/05/21 Unknown Rx TAB] Metoclopramide [Reglan] 10 mg PO TID PRN #30 tab 06/05/21 Unknown Rx Omeprazole 40 mg PO DAILY #30 capsule.dr 06/05/21 Unknown Rx Butalb/Acetaminophen/Caffeine 1 cap PO Q6HR PRN #20 cap 07/15/21 Unknown Rx [Fioricet 50-300-40 mg CAP] Ondansetron [Zofran Odt] 4 mg PO Q8HR PRN #15 tab.rapdis 09/30/21 Unknown Rx Dicyclomine [Bentyl] 20 mg PO BID PRN #12 tablet 10/01/21 Unknown Rx Ondansetron [Zofran Odt] 4 mg PO Q8HR PRN #12 tab.rapdis 10/01/21 Unknown Rx Dicyclomine [Bentyl] 20 mg PO QID PRN #30 tablet 01/13/22 Unknown Rx Ondansetron [Zofran Odt] 4 mg PO Q8HR PRN #12 tab.rapdis 01/13/22 Unknown Rx ED Physical Exam - General Limitations: No Limitations General appearance: alert, in no apparent distress - Head Head exam: Present: atraumatic, normocephalic - Eye Eye exam: Present: normal appearance. Absent: conjunctival injection - Neck Neck exam: Present: normal inspection, full ROM. Absent: tenderness, lymphadenopathy - Respiratory Respiratory exam: Present: normal lung sounds bilaterally. Absent: respiratory distress, wheezes, rales, rhonchi, stridor, chest wall tenderness - Cardiovascular Cardiovascular Exam: Present: tachycardia, normal heart sounds - GI/Abdominal GI/Abdominal exam: Present: soft, normal bowel sounds. Absent: distended, tenderness, guarding, rebound, rigid - Extremities Exam Extremities exam: Present: normal inspection, full ROM, normal capillary refill. Absent: tenderness, pedal edema, joint swelling, calf tenderness - Back Exam Back exam: Present: normal inspection. Absent: CVA tenderness (R), CVA tenderness (L) - Neurological Exam Neurological exam: Present: alert, oriented X3 - Psychiatric Psychiatric exam: Present: normal affect, normal mood - Skin Skin exam: Present: warm, dry, intact, normal color ED Course Vital Signs 01/13/22 07:55 Temperature 97.7 F Pulse Rate 105 H Respiratory 18 Rate Blood Pressure 147/85 [Right] O2 Sat by Pulse 98 Oximetry - Reevaluation(s) Reevaluation #1: 01/13/22 11:18 Nausea vomiting abdominal pain resolved, patient states that he feels much better. ED Medical Decision Making - Lab Data Result diagrams: 01/13/22 10:13 01/13/22 10:13 - Medical Decision Making 46-year-old black male with no past medical history presents to the emergency department for evaluation of several hour history of nausea, vomiting, and abdominal pain. He states that yesterday evening he had some nausea but when he woke up this morning he had severe abdominal pain along with nausea and vomiting. He denies diarrhea, fever, dysuria, and penile discharge. He states that pain is worse is 7 out of 10, intermittent, and a crampy type pain. Symptoms resolved after medications. CBC, CMP, and lipase without any gross abnormalities noted. Patient will be treated for gastroenteritis and discharged home with Zofran and Bentyl to use as directed. He is advised to increase intake of noncaffeinated fluids, take medications as directed, and follow-up with his primary care provider if worsening symptoms. He is advised to return to the emergency department as needed. He verbalizes understanding of and agreement with plan of care. Critical care attestation.: If time is entered above; I have spent that time in minutes in the direct care of this critically ill patient, excluding procedure time. ED Disposition Clinical Impression: Gastroenteritis Disposition: HOME / SELF CARE / HOMELESS Is pt being admited?: No Does the pt Need Aspirin: No Condition: Stable Instructions: Viral Gastroenteritis, Adult, [id number] Additional Instructions: Take medications as prescribed. Increase intake of noncaffeinated fluids. Fol low-up with your primary care provider if no improvement or worsening symptoms. Return to the emergency department as needed. Prescriptions: Dicyclomine [Bentyl] 20 mg PO QID PRN #30 tablet PRN Reason: Pain, Moderate (4-6) Ondansetron [Zofran Odt] 4 mg PO Q8HR PRN #12 tab.rapdis PRN Reason: Nausea And Vomiting Referrals: MARIANNA NOLAN MD [Staff Physician] - 3-5 Days BALAJI GODDARD MD [Staff Physician] - 3-5 Days Time of Disposition: 11:24
[2022-01-13 12:18] VITALS: BP 128/86
== END 2022-01-13 12:18 | disposition home or self-care (01) ==
LOC: ED 07:39
DX: K52.9 Noninfective gastroenteritis and colitis, unspecified (principal); R11.2 Nausea with vomiting, unspecified; K21.9 Gastro-esophageal reflux disease without esophagitis; Z90.49 Acquired absence of other specified parts of digestive tract; Z72.89 Other problems related to lifestyle; Z79.899 Other long term (current) drug therapy
CPT/HCPCS: 36415; 80053; 83690; 85027; 96361; 96372; 96374; 99283; J0500; J2405; J7030

== ENCOUNTER 2022-02-03 09:21 | Emergency (ER) | payer BC ==
[2022-02-03 10:31] LABS: Basophils % (Auto) 0.3 % (0.0-1.8); Hematocrit 40.7 % (35.5-45.6); Hemoglobin 13.4 gm/dl (11.8-15.2); Lymphocytes # (Auto) 1.7 K/mm3 (1.2-5.4); Lymphocytes % (Auto) 14.8 % (13.4-35.0); Mean Corpuscular HGB Conc 33 % (32-34); Mean Corpuscular Volume 88 fl (84-94); Monocytes # (Auto) 1.2 K/mm3 (0.0-0.8); Monocytes % (Auto) 10.4 % (0.0-7.3); Platelet Count 263 K/mm3 (140-440); Red Blood Count 4.61 M/mm3 (3.65-5.03)
[2022-02-03 10:56] LABS: Alanine Aminotransferase 14 units/L (7-56); Albumin 4.9 g/dL (3.9-5); Blood Urea Nitrogen 9 mg/dL (9-20); Calcium 9.9 mg/dL (8.4-10.2); Hemolysis Index 1
[2022-02-03 10:57] LABS: WBC,Urine < 1.0 /HPF (0.0-6.0)
[2022-02-03 11:03] LABS: BUN/Creatinine Ratio 13
[2022-02-03 11:13] LABS: Color,Urine Straw (Yellow)
--- NOTE | 2022-02-03 12:58 | XRay Report ---
CHEST 2 VIEWS INDICATION: Chest Pain. COMPARISON: 10/01/2021. FINDINGS: Support devices: None. Heart: Within normal limits. Lungs/Pleura: No acute air space or interstitial disease. No significant pleural effusion. IMPRESSION: No acute findings. Signer Name: Nura Cummings MD Signed: 02/03/2022 12:54 PM Workstation Name: [id number]
--- NOTE | 2022-02-03 13:13 | Emergency Department Report ---
ED General Adult HPI - General Chief complaint: Abdominal Pain Stated complaint: UPPER STOMACH PAIN Source: patient Mode of arrival: Ambulatory Limitations: No Limitations - History of Present Illness Initial comments: 46-year-old male presents to the ED complaining abdominal pain after drinking all night and into this morning. Patient states that he also did cocaine. Patient states that he is looking to go to a rehab facility for his alcohol and drug problem,. Patient denies any pain pain or discomfort at present time. Patient denies any nausea vomiting shortness of breath. Patient is alert and oriented x3. No acute distress noted. No ill appearance noted -: days(s) Severity scale (0 -10): 0 Improves with: none Worsens with: none Associated Symptoms: denies other symptoms - Related Data Previous Rx's Medication Instructions Recorded Last Taken Type Ondansetron (Nf) [Zofran TAB] 8 mg PO Q8HR PRN #20 tablet 10/13/19 Unknown Rx Lansoprazole [Prevacid] 15 mg PO BID #30 cap 08/20/20 Unknown Rx Famotidine [Pepcid] 40 mg PO QHS #30 tablet 02/18/21 Unknown Rx Famotidine [Pepcid] 20 mg PO BID #20 tablet 04/03/21 Unknown Rx Ondansetron [Zofran ODT TAB] 4 mg PO Q8HR PRN #8 tab.rapdis 04/03/21 Unknown Rx Sucralfate [Carafate] 1 gm PO ACHS 7 Days #21 tablet 04/03/21 Unknown Rx Dicyclomine [Bentyl] 20 mg PO Q6H PRN #30 tablet 05/05/21 Unknown Rx Famotidine [Pepcid] 20 mg PO BID #60 tablet 05/05/21 Unknown Rx Ondansetron [Zofran Odt] 4 mg PO Q6HR PRN #15 tab.rapdis 05/05/21 Unknown Rx Hyoscyamine Subl [Levsin Sl 0.125 0.125 mg SL Q6HR PRN #20 tab 06/05/21 Unknown Rx TAB] Metoclopramide [Reglan] 10 mg PO TID PRN #30 tab 06/05/21 Unknown Rx Omeprazole 40 mg PO DAILY #30 capsule. 06/05/21 Unknown Rx Butalb/Acetaminophen/Caffeine 1 cap PO Q6HR PRN #20 cap 07/15/21 Unknown Rx [Fioricet 50-300-40 mg CAP] Ondansetron [Zofran Odt] 4 mg PO Q8HR PRN #15 tab.rapdis 09/30/21 Unknown Rx Dicyclomine [Bentyl] 20 mg PO BID PRN #12 tablet 10/01/21 Unknown Rx Ondansetron [Zofran Odt] 4 mg PO Q8HR PRN #12 tab.rapdis 10/01/21 Unknown Rx Dicyclomine [Bentyl] 20 mg PO QID PRN #30 tablet 01/13/22 Unknown Rx Ondansetron [Zofran Odt] 4 mg PO Q8HR PRN #12 tab.rapdis 01/13/22 Unknown Rx Allergies Allergy/AdvReac Type Severity Reaction Status Date / Time No Known Allergies Allergy Verified 01/13/22 09:58 ED Review of Systems ROS: Stated complaint: UPPER STOMACH PAIN Other details as noted in HPI Constitutional: denies: chills, fever Eyes: denies: eye pain, eye discharge, vision change ENT: denies: ear pain, throat pain Respiratory: denies: cough, shortness of breath, wheezing Cardiovascular: denies: chest pain, palpitations Endocrine: no symptoms reported Gastrointestinal: denies: abdominal pain, nausea, diarrhea Genitourinary: denies: urgency, dysuria Musculoskeletal: denies: back pain, joint swelling, arthralgia Skin: denies: rash, lesions Neurological: denies: headache, weakness, paresthesias Psychiatric: denies: anxiety, depression Hematological/Lymphatic: denies: easy bleeding, easy bruising ED Past Medical Hx - Past Medical History Hx GERD: Yes - Surgical History Hx Appendectomy: Yes Additional Surgical History: NECK - Social History Smoking Status: Never Smoker Substance Use Type: Alcohol - Medications Home Medications: Home Medications Medication Instructions Recorded Confirmed Last Taken Type Ondansetron (Nf) [Zofran TAB] 8 mg PO Q8HR PRN #20 tablet 10/13/19 Unknown Rx Lansoprazole [Prevacid] 15 mg PO BID #30 cap 08/20/20 Unknown Rx Famotidine [Pepcid] 40 mg PO QHS #30 tablet 02/18/21 Unknown Rx Famotidine [Pepcid] 20 mg PO BID #20 tablet 04/03/21 Unknown Rx Ondansetron [Zofran ODT TAB] 4 mg PO Q8HR PRN #8 tab.rapdis 04/03/21 Unknown Rx Sucralfate [Carafate] 1 gm PO ACHS 7 Days #21 tablet 04/03/21 Unknown Rx Dicyclomine [Bentyl] 20 mg PO Q6H PRN #30 tablet 05/05/21 Unknown Rx Famotidine [Pepcid] 20 mg PO BID #60 tablet 05/05/21 Unknown Rx Ondansetron [Zofran Odt] 4 mg PO Q6HR PRN #15 tab.rapdis 05/05/21 Unknown Rx Hyoscyamine Subl [Levsin Sl 0.125 0.125 mg SL Q6HR PRN #20 tab 06/05/21 Unknown Rx TAB] Metoclopramide [Reglan] 10 mg PO TID PRN #30 tab 06/05/21 Unknown Rx Omeprazole 40 mg PO DAILY #30 capsule.dr 06/05/21 Unknown Rx Butalb/Acetaminophen/Caffeine 1 cap PO Q6HR PRN #20 cap 07/15/21 Unknown Rx [Fioricet 50-300-40 mg CAP] Ondansetron [Zofran Odt] 4 mg PO Q8HR PRN #15 tab.rapdis 09/30/21 Unknown Rx Dicyclomine [Bentyl] 20 mg PO BID PRN #12 tablet 10/01/21 Unknown Rx Ondansetron [Zofran Odt] 4 mg PO Q8HR PRN #12 tab.rapdis 10/01/21 Unknown Rx Dicyclomine [Bentyl] 20 mg PO QID PRN #30 tablet 01/13/22 Unknown Rx Ondansetron [Zofran Odt] 4 mg PO Q8HR PRN #12 tab.rapdis 01/13/22 Unknown Rx ED Physical Exam - General Limitations: No Limitations General appearance: alert, in no apparent distress - Head Head exam: Present: atraumatic, normocephalic - Eye Eye exam: Present: normal appearance - ENT ENT exam: Present: mucous membranes moist - Neck Neck exam: Present: normal inspection - Respiratory Respiratory exam: Present: normal lung sounds bilaterally. Absent: respiratory distress - Cardiovascular Cardiovascular Exam: Present: regular rate, normal rhythm. Absent: systolic murmur, diastolic murmur, rubs, gallop - GI/Abdominal GI/Abdominal exam: Present: soft, normal bowel sounds - Rectal Rectal exam: Present: deferred - Extremities Exam Extremities exam: Present: normal inspection - Back Exam Back exam: Present: normal inspection - Neurological Exam Neurological exam: Present: alert, oriented X3 - Psychiatric Psychiatric exam: Present: normal affect, normal mood - Skin Skin exam: Present: warm, dry, intact, normal color. Absent: rash ED Course Vital Signs 02/03/22 09:40 Temperature 98.8 F Pulse Rate 79 Respiratory 16 Rate Blood Pressure 130/89 [Left] O2 Sat by Pulse 97 Oximetry ED Medical Decision Making - Lab Data Result diagrams: 02/03/22 10:10 02/03/22 10:10 - EKG Data EKG shows normal: sinus rhythm - EKG Data Interpretation: nonspecific ST-T wave akil, LVH - Medical Decision Making 46-year-old male presents to the ED complaining abdominal pain after drinking all night and into this morning. Patient states that he also did cocaine. Patient states that he is looking to go to a rehab facility for his alcohol and drug problem,. Patient denies any pain pain or discomfort at present time. Patient denies any nausea vomiting shortness of breath. Patient is alert and oriented x3. No acute distress noted. No ill appearance noted. Physical Rechecked the patient is resting quietly , comfortable and feeling better. I discussed the results of diagnostic study, my clinical impression and the plan for further treatment with the patient. Patient agrees with plan and discharge at this present time. All question addressed. I have given the patient instruction regarding a diagnosis ,expectation ,follow-up and return precaution. I explained to the patient that emergent condition may arise and to return to the ED for new worsen and any new persisting condition. I have explained the importance of following up with the primary care physician or referral physician listed below has instructed. The patient verbalized understanding of discharge instruction. Abnormal Lab Results 02/03/22 02/03/22 02/03/22 10:10 10:10 12:23 WBC 11.3 H RBC 4.61 Hgb 13.4 Hct 40.7 MCV 88 MCH 29 MCHC 33 RDW 14.0 Plt Count 263 Lymph % (Auto) 14.8 Ray % (Auto) 10.4 H Eos % (Auto) 0.0 Baso % (Auto) 0.3 Lymph # (Auto) 1.7 Ray # (Auto) 1.2 H Eos # (Auto) 0.0 Baso # (Auto) 0.0 Seg Neutrophils % 74.5 H Seg Neutrophils # 8.4 H Sodium 143 Potassium 4.3 Chloride 101.3 Carbon Dioxide 29 Anion Gap 17 BUN 9 Creatinine 0.7 L Estimated GFR > 60 BUN/Creatinine Ratio 13 Glucose 103 H Calcium 9.9 Total Bilirubin < 0.20 AST 17 ALT 14 Alkaline Phosphatase 73 Troponin T < 0.010 Total Protein 7.3 Albumin 4.9 Albumin/Globulin Ratio 2.0 Lipase 15 Urine Color Urine Turbidity Specific [place] (Man) Ur Protein (Man) Ur Ketones (Man) Ur Nitrite (Man) Ur Reducing Substances Urine Bilirubin (Man) Urine Ictotest Leukocyte Esterase (Man) Urine WBC (Auto) Urine RBC (Auto) U Epithel Cells (Auto) Urine RBC (Manual) 02/03/22 Unknown WBC RBC Hgb Hct MCV MCH MCHC RDW Plt Count Lymph % (Auto) Ray % (Auto) Eos % (Auto) Baso % (Auto) Lymph # (Auto) Ray # (Auto) Eos # (Auto) Baso # (Auto) Seg Neutrophils % Seg Neutrophils # Sodium Potassium Chloride Carbon Dioxide Anion Gap BUN Creatinine Estimated GFR BUN/Creatinine Ratio Glucose Calcium Total Bilirubin AST ALT Alkaline Phosphatase Troponin T Total Protein Albumin Albumin/Globulin Ratio Lipase Urine Color Straw Urine Turbidity Clear Specific [place] (Man) 1.005 Ur Protein (Man) <30 mg dl Ur Ketones (Man) Negative Ur Nitrite (Man) Negative Ur Reducing Substances Not Reportable Urine Bilirubin (Man) Negative Urine Ictotest Not Reportable Leukocyte Esterase (Man) Negative Urine WBC (Auto) < 1.0 Urine RBC (Auto) 1.0 U Epithel Cells (Auto) < 1.0 Urine RBC (Manual) Trace examination is unremarkable Critical care attestation.: If time is entered above; I have spent that time in minutes in the direct care of this critically ill patient, excluding procedure time. ED Disposition Clinical Impression: Alcohol abuse, Cocaine abuse Abdominal pain Qualifiers: Abdominal location: generalized Qualified Code(s): R10.84 - Generalized abdominal pain Disposition: 01 HOME / SELF CARE / HOMELESS Is pt being admited?: No Does the pt Need Aspirin: No Condition: Stable Instructions: Alcohol Use Disorder, Abdominal Pain, Adult, Koax-av-Gala, Alcohol Abuse and Dependence Information, Adult, Substance Abuse Testing Additional Instructions: [facility] [address] [place] [address] [place] [address] Referrals: MARIANNA NOLAN MD [Primary Care Provider] - 3-5 Days Forms: Work/School Release Form(ED) Time of Disposition: 13:39
[2022-02-03 14:12] VITALS: BP 129/86
--- NOTE | 2022-02-04 09:39 | Electrocardiograph Report ---
[facility] Test Date: 2022-02-03 Test Time: 13:32:11 Pat Name: DOMINIC LAMBERT Department: Room: Gender: M [employer]: [birth year] : 1975 Requested By: SHANDRA KIMBALL Order Number: [id number] Reading MD: Jordon Herrera Measurements Intervals [place] Rate: 70 P: 59 [place]: 145 QRS: 70 QRSD: 80 T: 61 QT: 365 QTc: 394 Interpretive Statements Sinus rhythm Consider left ventricular hypertrophy Compared to ECG 10/01/2021 06:16:52 No significant changes Electronically Signed On 02-04-2022 9:39:09 EDT by Jordon Herrera
== END 2022-02-03 14:11 | disposition home or self-care (01) ==
LOC: ED 09:21
DX: R10.9 Unspecified abdominal pain (principal); F14.10 Cocaine abuse, uncomplicated; F10.10 Alcohol abuse, uncomplicated; K21.9 Gastro-esophageal reflux disease without esophagitis; Y90.9 Presence of alcohol in blood, level not specified
CPT/HCPCS: 36415; 71046; 80053; 81001; 83690; 84484; 85025; 93005; 99284